=== PATIENT | male | born 1940 | race Caucasian/White ===

== ENCOUNTER → 2016-11-20 | Outpatient (REF) | payer MEDICARE, MEDICAID ==
[~2016-11-20] MED LIST: ALBUTERAL SULFATE INH; ASPI325T OR; ATEN25TA OR; CICL0.776 TOP; IBUP200C PO; LISI40TA OR; MAG400TA PO; MULTCAP PO; NICO21DI4 TD; OMEGA PO; OMEP40CA2 PO; OXAZ10CA PO; PRAV10TA2 OR; SPIRIVA INH; TYLE325T5 PO; VICO5TAB OR
[2016-11-20 17:34] LABS: ALBUMIN 3.8 GM/DL (3.2-5.2); ALBUMIN/GLOBULIN RATIO 1.27 (1.00-1.93); BILIRUBIN,DIRECT 0.4 MG/DL (0.0-0.2); BILIRUBIN,TOTAL 1.5 MG/DL (0.2-1.0); TOTAL PROTEIN 6.8 GM/DL (6.4-8.2)
== END ==
LOC: M LABDRWCV 16:15
PROVIDERS: ATTEND Internal Medicine Cardiovascular Disease
DX: E80.4 Gilbert syndrome (principal)

== ENCOUNTER → 2017-02-04 | Outpatient (CLI) | payer MEDICARE, MEDICAID ==
--- NOTE | 2017-02-04 12:46 | REP ---
LOW DOSE SCREENING CT LUNGS: Low dose screening CT of the lungs is performed in the axial plane. Comparison is made with prior CT of the thorax 07/20/2014. There is focal pleural and parenchymal opacity in the right apex, ill-defined and unchanged since the prior study most consistent with focal fibrotic scarring. Here is diffuse bilateral interstitial fibrosis. No suspicious nodular opacities are seen bilaterally. Calcified granulomata is seen along the inferior left major fissure. No pleural effusions are seen. The heart is not enlarged. There are degenerative changes of the spine. IMPRESSION: Stable fibrotic changes without suspicious nodular opacity in either lung. Category I negative screening CT of the lungs. Recommend continued annual screening yearly. Signed by Joselito Currie MD 02/04/2017 05:38 P
== END ==
LOC: M RAD 11:28
PROVIDERS: ATTEND Internal Medicine
DX: F17.210 Nicotine dependence, cigarettes, uncomplicated (principal)

== ENCOUNTER → 2017-02-10 | Outpatient (REF) | payer MEDICARE, MEDICAID ==
[2017-02-10 17:47] LABS: ALBUMIN 3.7 GM/DL (3.2-5.2); ALBUMIN/GLOBULIN RATIO 1.32 (1.00-1.93); ALKALINE PHOSPHATASE 96 U/L (45-117); ALT/SGPT 28 U/L (12-78); ANION GAP 7 MEQ/L (8-16); AST/SGOT 34 U/L (15-37); BILIRUBIN,TOTAL 1.5 MG/DL (0.2-1.0); BLOOD UREA NITROGEN 12 MG/DL (7-18); CALCIUM LEVEL 8.6 MG/DL (8.8-10.2); CARBON DIOXIDE LEVEL 29 MEQ/L (21-32); CHLORIDE LEVEL 102 MEQ/L (98-107); CHOLESTEROL LEVEL 116 MG/DL (<200); CREATININE FOR GFR 1.03 MG/DL (0.70-1.30); GLOMERULAR FILTRATION RATE > 60.0 (>42); GLUCOSE, FASTING 82 MG/DL (83-110); POTASSIUM SERUM 4.1 MEQ/L (3.5-5.1); SODIUM LEVEL 138 MEQ/L (136-145); TOTAL PROTEIN 6.5 GM/DL (6.4-8.2); TRIGLYCERIDES LEVEL 94 MG/DL (<150)
== END ==
LOC: M SFHCCAPE 10:30
PROVIDERS: ATTEND Family Medicine
DX: E78.2 Mixed hyperlipidemia (principal); I10 Essential (primary) hypertension; Z12.5 Encounter for screening for malignant neoplasm of prostate
CPT/HCPCS: 36415; 80053; 80061; 84443; G0103

== ENCOUNTER → 2017-03-12 | Outpatient (REF) | payer MEDICARE, MEDICAID ==
[2017-03-12 19:13] LABS: ALBUMIN 3.8 GM/DL (3.2-5.2); ANION GAP 7 MEQ/L (8-16); BLOOD UREA NITROGEN 11 MG/DL (7-18); CALCIUM LEVEL 8.7 MG/DL (8.8-10.2); CARBON DIOXIDE LEVEL 28 MEQ/L (21-32); CHLORIDE LEVEL 102 MEQ/L (98-107); GLOMERULAR FILTRATION RATE > 60.0 (>42); GLUCOSE, FASTING 99 MG/DL (83-110); PHOSPHORUS LEVEL 3.5 MG/DL (2.5-4.9); POTASSIUM SERUM 4.1 MEQ/L (3.5-5.1); SODIUM LEVEL 137 MEQ/L (136-145)
== END ==
LOC: M LABDRWCV 16:18
PROVIDERS: ATTEND Internal Medicine Cardiovascular Disease
DX: I11.9 Hypertensive heart disease without heart failure (principal); Z79.899 Other long term (current) drug therapy

== ENCOUNTER → 2018-05-26 | Outpatient (REF) | payer MEDICARE, MEDICAID ==
[2018-05-26 19:40] LABS: BASO # 0.1 10^3/uL (0.0-0.2); BASO % 1.3 % (0.0-1.0); EOS # 0.4 10^3/uL (0.0-0.50); EOS % 5.2 % (0.0-3.0); HEMATOCRIT 35.3 % (42.0-52.0); HEMOGLOBIN 11.7 g/dl (13.5-17.5); IMMATURE GRANULOCYTE % 0.4 % (0-3.0); LYMPH # 2.1 10^3/uL (1.5-4.5); LYMPH % 25.8 % (24.0-44.0); MEAN CORPUSCULAR HEMOGLOBIN 32.2 pg (27.0-33.0); MEAN CORPUSCULAR HGB CONC 33.1 g/dl (32.0-36.5); MEAN CORPUSCULAR VOLUME 97.2 fl (80.0-96.0); MONO # 0.8 10^3/uL (0.0-0.8); MONO % 10.6 % (0.0-5.0); NEUTROPHILS # 4.5 10^3/uL (1.8-7.7); NEUTROPHILS % 56.7 % (36.0-66.0); PLATELET COUNT, AUTOMATED 276 10^3/uL (150-450); RED BLOOD COUNT 3.63 10^6/uL (4.30-6.10); RED CELL DISTRIBUTION WIDTH 12.7 % (11.5-14.5)
[2018-05-26 19:48] LABS: ALBUMIN 3.6 GM/DL (3.2-5.2); ANION GAP 10 MEQ/L (8-16); BLOOD UREA NITROGEN 30 MG/DL (7-18); CALCIUM LEVEL 9.1 MG/DL (8.8-10.2); CARBON DIOXIDE LEVEL 23 MEQ/L (21-32); CHLORIDE LEVEL 107 MEQ/L (98-107); CHOLESTEROL LEVEL 122 MG/DL (<200); CHOLESTEROL RISK RATIO 1.694 (<5); CREATININE FOR GFR 1.42 MG/DL (0.70-1.30); GLOMERULAR FILTRATION RATE 51.6 (>42); GLUCOSE, FASTING 90 MG/DL (70-100); HDL CHOLESTEROL 72 MG/DL (>40); LDL CHOLESTEROL 27.2 MG/DL (<100); NON-HDL-C 50 MG/DL; PHOSPHORUS LEVEL 3.7 MG/DL (2.5-4.9); POTASSIUM SERUM 4.3 MEQ/L (3.5-5.1); SODIUM LEVEL 140 MEQ/L (136-145); TRIGLYCERIDES LEVEL 114 MG/DL (<150)
== END ==
LOC: M LAB REF 18:30
DX: R07.2 Precordial pain (principal)
CPT/HCPCS: 80069

== ENCOUNTER → 2018-06-14 | Outpatient (REF) | payer MEDICARE, MEDICAID ==
[2018-06-14 19:10] LABS: ALBUMIN 3.4 GM/DL (3.2-5.2); ANION GAP 10 MEQ/L (8-16); BLOOD UREA NITROGEN 20 MG/DL (7-18); CALCIUM LEVEL 8.6 MG/DL (8.8-10.2); CARBON DIOXIDE LEVEL 23 MEQ/L (21-32); CHLORIDE LEVEL 109 MEQ/L (98-107); CREATININE FOR GFR 1.75 MG/DL (0.70-1.30); GLOMERULAR FILTRATION RATE 40.5 (>42); GLUCOSE, FASTING 90 MG/DL (70-100); PHOSPHORUS LEVEL 3.8 MG/DL (2.5-4.9); POTASSIUM SERUM 4.3 MEQ/L (3.5-5.1); SODIUM LEVEL 142 MEQ/L (136-145)
[2018-06-14 19:14] LABS: ALBUMIN 3.4 GM/DL (3.2-5.2); ALBUMIN/GLOBULIN RATIO 1.17 (1.00-1.93); ALKALINE PHOSPHATASE 85 U/L (45-117); ALT/SGPT 37 U/L (12-78); ANION GAP 10 MEQ/L (8-16); AST/SGOT 59 U/L (7-37); BILIRUBIN,TOTAL 2.8 MG/DL (0.2-1.0); BLOOD UREA NITROGEN 20 MG/DL (7-18); CALCIUM LEVEL 8.5 MG/DL (8.8-10.2); CARBON DIOXIDE LEVEL 24 MEQ/L (21-32); CHLORIDE LEVEL 109 MEQ/L (98-107); CHOLESTEROL LEVEL 95 MG/DL (<200); CHOLESTEROL RISK RATIO 1.439 (<5); CREATININE FOR GFR 1.74 MG/DL (0.70-1.30); GLOMERULAR FILTRATION RATE 40.8 (>42); GLUCOSE, FASTING 87 MG/DL (70-100); HDL CHOLESTEROL 66 MG/DL (>40); LDL CHOLESTEROL 16.4 MG/DL (<100); NON-HDL-C 29 MG/DL; POTASSIUM SERUM 4.3 MEQ/L (3.5-5.1); SODIUM LEVEL 143 MEQ/L (136-145); TOTAL PROTEIN 6.3 GM/DL (6.4-8.2); TRIGLYCERIDES LEVEL 63 MG/DL (<150)
== END ==
LOC: M SFHCCAPE 09:42
DX: I11.9 Hypertensive heart disease without heart failure (principal); E78.2 Mixed hyperlipidemia; J44.9 Chronic obstructive pulmonary disease, unspecified; K21.9 Gastro-esophageal reflux disease without esophagitis
CPT/HCPCS: 84443

== ENCOUNTER → 2018-06-28 | Outpatient (REF) | payer MEDICARE, MEDICAID ==
[2018-06-28 17:35] LABS: ALBUMIN 3.4 GM/DL (3.2-5.2); ANION GAP 8 MEQ/L (8-16); BLOOD UREA NITROGEN 16 MG/DL (7-18); CARBON DIOXIDE LEVEL 29 MEQ/L (21-32); CHLORIDE LEVEL 106 MEQ/L (98-107); CREATININE FOR GFR 1.34 MG/DL (0.70-1.30); GLOMERULAR FILTRATION RATE 55.2 (>42); GLUCOSE, FASTING 93 MG/DL (70-100); POTASSIUM SERUM 4.1 MEQ/L (3.5-5.1); SODIUM LEVEL 143 MEQ/L (136-145)
== END ==
LOC: M LABDRWCV 16:39
DX: I25.10 Atherosclerotic heart disease of native coronary artery without angina pectoris (principal)
CPT/HCPCS: 80069

== ENCOUNTER → 2018-07-12 | Outpatient (REF) | payer MEDICARE, MEDICAID ==
[2018-07-12 22:47] LABS: ALBUMIN 3.6 GM/DL (3.2-5.2); ANION GAP 10 MEQ/L (8-16); BLOOD UREA NITROGEN 19 MG/DL (7-18); CALCIUM LEVEL 9.1 MG/DL (8.8-10.2); CARBON DIOXIDE LEVEL 25 MEQ/L (21-32); CHLORIDE LEVEL 107 MEQ/L (98-107); CREATININE FOR GFR 1.31 MG/DL (0.70-1.30); GLOMERULAR FILTRATION RATE 56.6 (>42); GLUCOSE, FASTING 98 MG/DL (70-100); PHOSPHORUS LEVEL 3.4 MG/DL (2.5-4.9); SODIUM LEVEL 142 MEQ/L (136-145)
== END ==
LOC: M LABDRWCV 17:54
DX: R60.0 Localized edema (principal)
CPT/HCPCS: 80069

== ENCOUNTER 2018-07-22 12:26 | Outpatient (RCR) | payer MEDICARE, MEDICAID | END 2018-08-01 | LOC: M CR 12:26 | DX: Z98.61 Coronary angioplasty status (principal) | CPT/HCPCS: 93798 ==

== ENCOUNTER → 2018-07-28 | Outpatient (REF) | payer MEDICARE, MEDICAID ==
[2018-07-28 14:36] LABS: FOLATE > 24.0 NG/ML; IRON (FE) 31 UG/DL (65-175); PERCENT SATURATION 10.1 % (19.7-50.0); TOTAL IRON BINDING CAPACITY 307 UG/DL (250-450)
[2018-07-29 08:35] LABS: TOTAL PROTEIN 6.8 GM/DL (6.4-8.2)
[2018-07-29 11:32] LABS: ALBUMIN 3.82 GM/DL (3.29-5.55); ALBUMIN % 56.2 % (55.8-66.1); ALPHA-1-GLOBULIN % 5.5 % (2.9-4.9); ALPHA-1-GLOBULINS 0.37 GM/DL (0.17-0.41); ALPHA-2-GLOBULINS 0.88 GM/DL (0.42-0.99); BETA-1-GLOBULINS 0.42 GM/DL (0.28-0.60); BETA-1-GLOBULINS % 6.2 % (4.7-7.2); BETA-2-GLOBULINS 0.32 GM/DL (0.19-0.55); BETA-2-GLOBULINS % 4.7 % (3.2-6.5); GAMMA GLOBULIN % 14.4 % (11.1-18.8); GAMMA GLOBULINS 0.98 GM/DL (0.65-1.58)
== END ==
LOC: M LAB REF 13:51
DX: D64.9 Anemia, unspecified (principal)
CPT/HCPCS: 82746

== ENCOUNTER 2018-08-06 10:53 | Outpatient (RCR) | payer MEDICARE, MEDICAID | END 2018-09-01 | LOC: M CR 10:53 | DX: Z98.61 Coronary angioplasty status (principal) | CPT/HCPCS: 93798 ==

== ENCOUNTER → 2018-08-11 | Outpatient (REF) | payer MEDICARE, MEDICAID ==
[2018-08-11 17:27] LABS: ALBUMIN 3.6 GM/DL (3.2-5.2); ALBUMIN/GLOBULIN RATIO 1.24 (1.00-1.93); ALKALINE PHOSPHATASE 90 U/L (45-117); ALT/SGPT 47 U/L (12-78); ANION GAP 10 MEQ/L (8-16); AST/SGOT 50 U/L (7-37); BILIRUBIN,TOTAL 1.3 MG/DL (0.2-1.0); BLOOD UREA NITROGEN 18 MG/DL (7-18); CALCIUM LEVEL 9.4 MG/DL (8.8-10.2); CARBON DIOXIDE LEVEL 26 MEQ/L (21-32); CHLORIDE LEVEL 107 MEQ/L (98-107); CREATININE FOR GFR 1.45 MG/DL (0.70-1.30); GLOMERULAR FILTRATION RATE 50.4 (>42); GLUCOSE, FASTING 86 MG/DL (70-100); POTASSIUM SERUM 4.4 MEQ/L (3.5-5.1); SODIUM LEVEL 143 MEQ/L (136-145); TOTAL PROTEIN 6.5 GM/DL (6.4-8.2)
== END ==
LOC: M SFHCCLAY 10:03
DX: N28.9 Disorder of kidney and ureter, unspecified (principal)
CPT/HCPCS: 80053

== ENCOUNTER → 2018-08-11 | Outpatient (REF) | payer MEDICARE, MEDICAID ==
[2018-08-11 17:26] LABS: BASO # 0.1 10^3/uL (0.0-0.2); EOS # 0.3 10^3/uL (0.0-0.50); EOS % 4.4 % (0.0-3.0); HEMATOCRIT 29.9 % (42.0-52.0); HEMOGLOBIN 9.6 g/dl (13.5-17.5); IMMATURE GRANULOCYTE % 0.2 % (0-3.0); LYMPH # 1.1 10^3/uL (1.5-4.5); LYMPH % 17.6 % (24.0-44.0); MEAN CORPUSCULAR HEMOGLOBIN 29.7 pg (27.0-33.0); MEAN CORPUSCULAR HGB CONC 32.1 g/dl (32.0-36.5); MEAN CORPUSCULAR VOLUME 92.6 fl (80.0-96.0); MONO # 0.7 10^3/uL (0.0-0.8); MONO % 10.5 % (0.0-5.0); NEUTROPHILS # 4.2 10^3/uL (1.8-7.7); NEUTROPHILS % 66.3 % (36.0-66.0); PLATELET COUNT, AUTOMATED 291 10^3/uL (150-450); RED BLOOD COUNT 3.23 10^6/uL (4.30-6.10); RED CELL DISTRIBUTION WIDTH 13.2 % (11.5-14.5); WHITE BLOOD COUNT 6.3 10^3/uL (4.0-10.0)
[2018-08-11 17:28] LABS: ANION GAP 9 MEQ/L (8-16); BLOOD UREA NITROGEN 16 MG/DL (7-18); CALCIUM LEVEL 8.7 MG/DL (8.8-10.2); CARBON DIOXIDE LEVEL 26 MEQ/L (21-32); CHLORIDE LEVEL 107 MEQ/L (98-107); CREATININE FOR GFR 1.43 MG/DL (0.70-1.30); GLOMERULAR FILTRATION RATE 51.2 (>42); GLUCOSE, FASTING 81 MG/DL (70-100); POTASSIUM SERUM 4.4 MEQ/L (3.5-5.1); SODIUM LEVEL 142 MEQ/L (136-145)
== END ==
LOC: M LABDRWCV 16:25
DX: D64.9 Anemia, unspecified (principal); I10 Essential (primary) hypertension
CPT/HCPCS: 80053; 85027

== ENCOUNTER 2018-09-03 13:13 | Outpatient (RCR) | payer MEDICARE, MEDICAID | END 2018-10-01 | LOC: M CR 13:13 | DX: Z51.89 Encounter for other specified aftercare (principal); Z98.61 Coronary angioplasty status | CPT/HCPCS: 93798 ==

== ENCOUNTER → 2018-09-09 | Outpatient (REF) | payer MEDICARE, MEDICAID ==
[2018-09-09 17:21] LABS: BASO # 0.1 10^3/uL (0.0-0.2); BASO % 0.5 % (0.0-1.0); EOS # 0.3 10^3/uL (0.0-0.50); EOS % 2.4 % (0.0-3.0); HEMATOCRIT 31.2 % (42.0-52.0); IMMATURE GRANULOCYTE # 0.1 10^3/uL (0-0); IMMATURE GRANULOCYTE % 0.4 % (0-3.0); LYMPH # 1.2 10^3/uL (1.5-4.5); LYMPH % 9.5 % (24.0-44.0); MEAN CORPUSCULAR HEMOGLOBIN 29.6 pg (27.0-33.0); MEAN CORPUSCULAR HGB CONC 32.1 g/dl (32.0-36.5); MEAN CORPUSCULAR VOLUME 92.3 fl (80.0-96.0); MONO % 8.4 % (0.0-5.0); NEUTROPHILS # 9.7 10^3/uL (1.8-7.7); NEUTROPHILS % 78.8 % (36.0-66.0); PLATELET COUNT, AUTOMATED 257 10^3/uL (150-450); RED BLOOD COUNT 3.38 10^6/uL (4.30-6.10); RED CELL DISTRIBUTION WIDTH 14.6 % (11.5-14.5); WHITE BLOOD COUNT 12.3 10^3/uL (4.0-10.0)
[2018-09-09 17:35] LABS: IRON (FE) 46 UG/DL (65-175); PERCENT SATURATION 15.2 % (19.7-50.0); TOTAL IRON BINDING CAPACITY 302 UG/DL (250-450)
== END ==
LOC: M LABDRWCV 17:00
DX: D50.0 Iron deficiency anemia secondary to blood loss (chronic) (principal)
CPT/HCPCS: 83550

== ENCOUNTER 2018-09-16 12:30 | Day surgery (SDC) | payer MEDICARE, MEDICAID ==
[~2018-09-16 12:30] MED LIST changes: -ALBUTERAL SULFATE INH; -ASPI325T OR; -ATEN25TA OR; -CICL0.776 TOP; -IBUP200C PO; +LIDOCAINE 2% INJ 100 MG/5 ML SDV (FOR ANES.) As Ordered; -LISI40TA OR; -MAG400TA PO; -MULTCAP PO; -NICO21DI4 TD; -OMEGA PO; -OMEP40CA2 PO; -OXAZ10CA PO; -PRAV10TA2 OR; +PROPOFOL 200 MG/20 ML VIAL As Ordered; -SPIRIVA INH; -TYLE325T5 PO; -VICO5TAB OR
[2018-09-16] MEDS: NS 1,000 ML IV (12:45)
[2018-09-16] MEDS ORDERED: ePHEDrine SULFATE 25 MG/5 ML(5MG/ML) SYRINGE As Ordered (13:37)
== END 2018-09-16 14:29 | disposition home or self-care (01) ==
LOC: M OPP 12:30
DX: K57.30 Diverticulosis of large intestine without perforation or abscess without bleeding (principal); K52.9 Noninfective gastroenteritis and colitis, unspecified; D50.9 Iron deficiency anemia, unspecified
CPT/HCPCS: 45378

== ENCOUNTER → 2018-09-27 | Outpatient (REF) | payer MEDICARE, MEDICAID ==
[2018-09-27 17:48] LABS: BASO # 0.1 10^3/uL (0.0-0.2); BASO % 1.2 % (0.0-1.0); EOS # 0.4 10^3/uL (0.0-0.50); EOS % 5.8 % (0.0-3.0); HEMATOCRIT 32.6 % (42.0-52.0); HEMOGLOBIN 10.2 g/dl (13.5-17.5); IMMATURE GRANULOCYTE % 0.2 % (0-3.0); LYMPH # 1.9 10^3/uL (1.5-4.5); LYMPH % 29.1 % (24.0-44.0); MEAN CORPUSCULAR HGB CONC 31.3 g/dl (32.0-36.5); MEAN CORPUSCULAR VOLUME 92.6 fl (80.0-96.0); MONO # 0.8 10^3/uL (0.0-0.8); MONO % 11.5 % (0.0-5.0); NEUTROPHILS # 3.4 10^3/uL (1.8-7.7); NEUTROPHILS % 52.2 % (36.0-66.0); PLATELET COUNT, AUTOMATED 272 10^3/uL (150-450); RED BLOOD COUNT 3.52 10^6/uL (4.30-6.10); RED CELL DISTRIBUTION WIDTH 14.6 % (11.5-14.5); WHITE BLOOD COUNT 6.5 10^3/uL (4.0-10.0)
== END ==
LOC: M LABDRWCV 17:03
DX: D50.0 Iron deficiency anemia secondary to blood loss (chronic) (principal)
CPT/HCPCS: 85027

== ENCOUNTER 2018-10-14 15:05 | Outpatient (RCR) | payer MEDICARE, MEDICAID ==
[~2018-10-14 15:05] MED LIST changes: +ALBUTERAL SULFATE INH; +ASPI1TAB PO; +ASPI325T OR; +ATEN25TA OR; +ATOR80TA59 PO; +BISO5TAB5 PO; +BRIL90TA PO; +CICL0.776 TOP; +FERR1TAB8 PO; +IBUP200C PO; +INCR1INH INH; -LIDOCAINE 2% INJ 100 MG/5 ML SDV (FOR ANES.) As Ordered; +LISI40TA OR; +LOSA-4 PO; +MAG400TA PO; +MAGN64TASA PO; +MULT1TAB10 PO; +MULTCAP PO; +NICO21DI4 TD; +OMEGA PO; +OMEP20CA3 PO; +OMEP40CA2 PO; +OSTETAB7 PO; +OXAZ10CA PO; +POTA1TAB14 PO; +PRAV10TA2 OR; -PROPOFOL 200 MG/20 ML VIAL As Ordered; +SPIRIVA INH; +TORS5TAB2 PO; +TYLE325T5 PO; +VICO5TAB OR; +[UNRECOGNIZED DRUG - REMARK]
--- NOTE | 2018-10-14 15:26 | CARECAPL ---
General Diagnoses: PTCA Date of event: Jun 10, 2018 Physician: Mika Alvarenga Allergies: Coded Allergies: No Known Drug Allergy (Verified Allergy, Unknown, NONE, 09/08/18) Date Entered Program: Jul 22, 2018 Risk strat for cardiac event: Low Exercise Date: Oct 14, 2018 Assessment: Followup/Discharge Exercise Prescription Modalities initiated: Nustep (mets 4.3 RPE 2), Arm Aerometer (mets 4.3 RPE 2), Dumbells (4lbs RPE 2), Recumbent Bike (mets 5.4 RPE 3) Duration (Minutes) minutes total exercise a day. work intervals in minutes. rest intervals in minutes. Functional Capacity Goal Sustained Metabolic Equivalent of a task (MET) goal of for minutes. Intensity: 3-Moderate Progression (METS) Increase by: METS every: sessions Angina with ex: No Target Heart Rate rest + 35-40 Resistance Training: Yes Weight (pounds): 4 Reps: 8-12 Hypertension: Yes Hypertension controlled with: Medication Resting 110/80 Peak Exercise BP 140/80 Meds bisoprolol Medications Scheduled (Incruse Ellipta), 1 PUFF INH DAILY, (Reported) (Osteo Bi-Flex Joint Shiel), 2 TAB PO DAILY, (Reported) Aspirin (Aspirin 81), 81 MG PO DAILY, (Reported) Atorvastatin Calcium (Atorvastatin Calcium), 80 MG PO DAILY, (Reported) Bisoprolol Fumarate (Bisoprolol Fumarate), 5 MG PO DAILY, (Reported) Ferrous Sulfate (Ferrous Sulfate), 325 MG PO BID, (Reported) Losartan Potassium (Losartan Potassium), 1 TAB PO DAILY, (Reported) Magnesium Chloride (Mag64), 2 TAB PO DAILY, (Reported) Multivitamins (Multivitamin Adults), 1 TAB PO DAILY, (Reported) Potassium Chloride (Potassium Chloride ER), 20 MEQ PO BID, (Reported) Ticagrelor Base (Brilinta), 90 MG PO BID, (Reported) Torsemide (Torsemide), 5 MG PO DAILY, (Reported) Scheduled PRN Omeprazole (Omeprazole), 20 MG PO BIDP PRN for HEARTBURN, (Reported) Miscellaneous Medications [healing ointment], (Reported) Education Goals Met: Yes Target Goals Individual exercise Rx (1) BP 140/90 or 130/80 if DM or CKD (1) Aerobic active 30+min 5 days per week (1) Nutrition Date: Oct 14, 2018 Assessment: Followup/Discharge Med Change: No Diabetes Diabetes: No Medication Change: No Diet Access Tool: Rate your plate Score: 46 Education Goals Met: Yes Target goal LDL-C<100 if triglycerides are >200 Non-HDL-C should be <130 (1) LDL-C<70 for high risk patients (4) HbA1c<7% (1) BMI<25 Waist cir<40in M/<35in F (1) Education Date: Oct 14, 2018 Assessment: Followup/Discharge Knowledge Test Score: 7 Education Goals Met: Yes Target Goals Complete cessation of tobacco use (1). Psychosocial Date: Oct 14, 2018 Assessment: Followup/Discharge Psych Test (Initial/Discharge) Tool Used: CESD Score: 8 Intervention Physician Consult: No Physician Referral: No Med Change: No Stress Management Class: Yes Uses Stress Management Skills: Yes Education Education: Coping Techniques, S/S depression, Relaxation Techniques Education Goals Met: Yes Target Goal Assess presence or absence of depression using a valid screening tool (1). Maximize coping skills (2). Positive support system (2). Patient/Program Goal Preventative Medication: Yes Aspirin, Yes Beta blockade, Yes Statin/OTR lipid Lowering, Yes Other (Brillinta) Fall Risk Assess: Yes Assisstive Device: cane Provider Assessment Session Number: 16 Provider Assessment: Proceed with rehab (patient discharged from cardiac rehab) Viola Olvera RN Oct 14, 2018 15:26
== END 2018-11-01 ==
LOC: M CR 15:05
PROVIDERS: ATTEND Internal Medicine Cardiovascular Disease
DX: Z98.61 Coronary angioplasty status (principal)

== ENCOUNTER → 2018-10-21 | Outpatient (REF) | payer MEDICARE, MEDICAID ==
[2018-10-21 16:45] LABS: BASO # 0.1 10^3/uL (0.0-0.2); BASO % 1.2 % (0.0-1.0); EOS # 0.3 10^3/uL (0.0-0.50); EOS % 4.2 % (0.0-3.0); HEMATOCRIT 32.8 % (42.0-52.0); HEMOGLOBIN 10.6 g/dl (13.5-17.5); IMMATURE GRANULOCYTE % 0.1 % (0-3.0); LYMPH # 1.6 10^3/uL (1.5-4.5); LYMPH % 21.3 % (24.0-44.0); MEAN CORPUSCULAR HEMOGLOBIN 29.3 pg (27.0-33.0); MEAN CORPUSCULAR HGB CONC 32.3 g/dl (32.0-36.5); MEAN CORPUSCULAR VOLUME 90.6 fl (80.0-96.0); MONO # 0.7 10^3/uL (0.0-0.8); NEUTROPHILS # 4.6 10^3/uL (1.8-7.7); NEUTROPHILS % 63.2 % (36.0-66.0); PLATELET COUNT, AUTOMATED 255 10^3/uL (150-450); RED BLOOD COUNT 3.62 10^6/uL (4.30-6.10); RED CELL DISTRIBUTION WIDTH 14.9 % (11.5-14.5); WHITE BLOOD COUNT 7.3 10^3/uL (4.0-10.0)
== END ==
LOC: M LABDRWCV 16:09
DX: D50.0 Iron deficiency anemia secondary to blood loss (chronic) (principal)
CPT/HCPCS: 85027

== ENCOUNTER → 2018-11-05 | Outpatient (REF) | payer MEDICARE, MEDICAID ==
[~2018-11-05] MED LIST changes: -LOSA-4 PO; +LOSA100T50 PO
[2018-11-05 18:13] LABS: PERCENT SATURATION 18.5 % (19.7-50.0)
== END ==
LOC: M LAB REF 16:25
PROVIDERS: ATTEND Internal Medicine
DX: D50.0 Iron deficiency anemia secondary to blood loss (chronic) (principal)

== ENCOUNTER → 2018-11-25 | Outpatient (REF) | payer MEDICARE, MEDICAID ==
[2018-11-25 17:04] LABS: ALBUMIN 3.7 GM/DL (3.2-5.2); BLOOD UREA NITROGEN 14 MG/DL (7-18); CALCIUM LEVEL 8.6 MG/DL (8.8-10.2); CARBON DIOXIDE LEVEL 27 MEQ/L (21-32); CHLORIDE LEVEL 106 MEQ/L (98-107); CREATININE FOR GFR 1.08 MG/DL (0.70-1.30); GLOMERULAR FILTRATION RATE > 60.0 (>42); GLUCOSE, FASTING 90 MG/DL (70-100); PHOSPHORUS LEVEL 3.2 MG/DL (2.5-4.9); POTASSIUM SERUM 4.4 MEQ/L (3.5-5.1); SODIUM LEVEL 140 MEQ/L (136-145)
== END ==
LOC: M LABDRWCV 16:07
PROVIDERS: ATTEND Physician Assistant
DX: I11.9 Hypertensive heart disease without heart failure (principal)

== ENCOUNTER → 2018-11-25 | Outpatient (REF) | payer MEDICARE, MEDICAID ==
[2018-11-25 17:24] LABS: BASO # 0.1 10^3/uL (0.0-0.2); BASO % 1.3 % (0.0-1.0); EOS # 0.4 10^3/uL (0.0-0.50); EOS % 6.5 % (0.0-3.0); HEMATOCRIT 33.9 % (42.0-52.0); HEMOGLOBIN 10.7 g/dl (13.5-17.5); LYMPH # 1.7 10^3/uL (1.5-4.5); LYMPH % 26.4 % (24.0-44.0); MEAN CORPUSCULAR HEMOGLOBIN 28.9 pg (27.0-33.0); MEAN CORPUSCULAR HGB CONC 31.6 g/dl (32.0-36.5); MEAN CORPUSCULAR VOLUME 91.6 fl (80.0-96.0); MONO # 0.7 10^3/uL (0.0-0.8); MONO % 11.3 % (0.0-5.0); NEUTROPHILS # 3.4 10^3/uL (1.8-7.7); NEUTROPHILS % 54.3 % (36.0-66.0); PLATELET COUNT, AUTOMATED 249 10^3/uL (150-450); WHITE BLOOD COUNT 6.3 10^3/uL (4.0-10.0)
== END ==
LOC: M LABDRWCV 16:08
PROVIDERS: ATTEND Internal Medicine
DX: D50.0 Iron deficiency anemia secondary to blood loss (chronic) (principal)

== ENCOUNTER → 2019-01-04 | Outpatient (REF) | payer MEDICARE, MEDICAID ==
[2019-01-04 18:25] LABS: BASO # 0.1 10^3/uL (0.0-0.2); BASO % 0.9 % (0.0-1.0); EOS # 0.3 10^3/uL (0.0-0.50); EOS % 4.9 % (0.0-3.0); HEMATOCRIT 32.9 % (42.0-52.0); HEMOGLOBIN 10.7 g/dl (13.5-17.5); LYMPH # 1.3 10^3/uL (1.5-4.5); LYMPH % 20.8 % (24.0-44.0); MEAN CORPUSCULAR HEMOGLOBIN 29.6 pg (27.0-33.0); MEAN CORPUSCULAR HGB CONC 32.5 g/dl (32.0-36.5); MEAN CORPUSCULAR VOLUME 91.1 fl (80.0-96.0); MONO # 0.7 10^3/uL (0.0-0.8); MONO % 10.2 % (0.0-5.0); NEUTROPHILS % 62.9 % (36.0-66.0); PLATELET COUNT, AUTOMATED 261 10^3/uL (150-450); RED BLOOD COUNT 3.61 10^6/uL (4.30-6.10); WHITE BLOOD COUNT 6.4 10^3/uL (4.0-10.0)
== END ==
LOC: M LABDRWCV 17:00
PROVIDERS: ATTEND Internal Medicine
DX: D50.0 Iron deficiency anemia secondary to blood loss (chronic) (principal)

== ENCOUNTER → 2019-02-01 | Outpatient (REF) | payer MEDICARE, MEDICAID ==
[~2019-02-01] MED LIST changes: -ASPI1TAB PO; +ASPI81TA26 PO
[2019-02-01 16:31] LABS: BASO # 0.1 10^3/uL (0.0-0.2); BASO % 0.3 % (0.0-1.0); EOS # 0.2 10^3/uL (0.0-0.50); EOS % 1.2 % (0.0-3.0); HEMATOCRIT 33.5 % (42.0-52.0); HEMOGLOBIN 10.6 g/dl (13.5-17.5); LYMPH # 1.3 10^3/uL (1.5-4.5); LYMPH % 8.7 % (24.0-44.0); MEAN CORPUSCULAR HEMOGLOBIN 29.8 pg (27.0-33.0); MEAN CORPUSCULAR HGB CONC 31.6 g/dl (32.0-36.5); MEAN CORPUSCULAR VOLUME 94.1 fl (80.0-96.0); MONO # 1.6 10^3/uL (0.0-0.8); MONO % 10.5 % (0.0-5.0); NEUTROPHILS # 12.2 10^3/uL (1.8-7.7); NEUTROPHILS % 78.7 % (36.0-66.0); PLATELET COUNT, AUTOMATED 258 10^3/uL (150-450); RED BLOOD COUNT 3.56 10^6/uL (4.30-6.10); WHITE BLOOD COUNT 15.5 10^3/uL (4.0-10.0)
== END ==
LOC: M LABDRWCV 16:13
PROVIDERS: ATTEND Internal Medicine
DX: D50.0 Iron deficiency anemia secondary to blood loss (chronic) (principal); Z23 Encounter for immunization
CPT/HCPCS: 85027; 90471; 90714; G0463

== ENCOUNTER → 2019-03-07 | Outpatient (REF) | payer MEDICARE, MEDICAID ==
[2019-03-07 19:20] LABS: PERCENT SATURATION 23.5 % (19.7-50.0)
== END ==
LOC: M LAB REF 16:58
PROVIDERS: ATTEND Internal Medicine
DX: D50.0 Iron deficiency anemia secondary to blood loss (chronic) (principal)

== ENCOUNTER → 2019-09-07 | Outpatient (REF) | payer MEDICARE, MEDICAID ==
[~2019-09-07] MED LIST changes: -BISO5TAB5 PO; +BISO5TAB9 PO; -OMEP20CA3 PO; +OMEP20CA4 PO; +OMEP40CA97 PO
[2019-09-07 18:44] LABS: PERCENT SATURATION 28.3 % (19.7-50.0)
== END ==
LOC: M LAB REF 16:59
PROVIDERS: ATTEND Internal Medicine
DX: D50.0 Iron deficiency anemia secondary to blood loss (chronic) (principal)

== ENCOUNTER → 2019-09-21 | Outpatient (REF) | payer MEDICARE, MEDICAID ==
[~2019-09-21] MED LIST changes: +OMEP-172 PO; -OMEP20CA4 PO
[2019-09-21 16:47] LABS: BLOOD UREA NITROGEN 14 MG/DL (7-18); CALCIUM LEVEL 8.5 MG/DL (8.8-10.2); CARBON DIOXIDE LEVEL 29 MEQ/L (21-32); CHLORIDE LEVEL 105 MEQ/L (98-107); CREATININE FOR GFR 0.96 MG/DL (0.70-1.30); GLOMERULAR FILTRATION RATE > 60.0 (>42); GLUCOSE, FASTING 102 MG/DL (70-100); POTASSIUM SERUM 4.3 MEQ/L (3.5-5.1); SODIUM LEVEL 139 MEQ/L (136-145)
== END ==
LOC: M LABDRWCV 15:59
PROVIDERS: ATTEND Internal Medicine
DX: I10 Essential (primary) hypertension (principal)

== ENCOUNTER → 2020-04-11 | Outpatient (REF) | payer MEDICARE, MEDICAID ==
[~2020-04-11] MED LIST changes: +BISO5TAB14 PO; -BISO5TAB9 PO; -OMEP-172 PO; +OMEP1CAP73 PO
[2020-04-11 16:18] LABS: BASO # 0.1 10^3/uL (0.0-0.2); BASO % 0.6 % (0.0-1.0); EOS # 0.1 10^3/uL (0.0-0.5); EOS % 1.4 % (0.0-3.0); HEMATOCRIT 35.3 % (42.0-52.0); HEMOGLOBIN 11.9 g/dl (13.5-17.5); LYMPH # 1.5 10^3/uL (1.5-5.0); LYMPH % 17.6 % (24.0-44.0); MEAN CORPUSCULAR HEMOGLOBIN 31.2 pg (27.0-33.0); MEAN CORPUSCULAR HGB CONC 33.7 g/dl (32.0-36.5); MEAN CORPUSCULAR VOLUME 92.7 fl (80.0-96.0); MONO # 0.8 10^3/uL (0.0-0.8); MONO % 9.6 % (0.0-5.0); NEUTROPHILS % 70.4 % (36.0-66.0); PLATELET COUNT, AUTOMATED 257 10^3/uL (150-450); RED BLOOD COUNT 3.81 10^6/uL (4.30-6.10); WHITE BLOOD COUNT 8.5 10^3/uL (4.0-10.0)
[2020-04-11 16:52] LABS: ALBUMIN 3.8 GM/DL (3.2-5.2); ALT/SGPT 36 U/L (12-78); BILIRUBIN,TOTAL 1.8 MG/DL (0.2-1.0); BLOOD UREA NITROGEN 14 MG/DL (7-18); CALCIUM LEVEL 9.4 MG/DL (8.8-10.2); CARBON DIOXIDE LEVEL 24 MEQ/L (21-32); CHLORIDE LEVEL 104 MEQ/L (98-107); CHOLESTEROL LEVEL 106 MG/DL (<200); CHOLESTEROL RISK RATIO 1.432 (<5); CREATININE FOR GFR 0.99 MG/DL (0.70-1.30); GLOMERULAR FILTRATION RATE > 60.0 (>42); GLUCOSE, FASTING 74 MG/DL (70-100); HDL CHOLESTEROL 74 MG/DL (>40); IRON (FE) 69 UG/DL (65-175); LDL CHOLESTEROL 22 MG/DL (<100); MAGNESIUM LEVEL 2.2 MG/DL (1.8-2.4); NON-HDL-C 32 MG/DL; PERCENT SATURATION 22.1 % (19.7-50.0); POTASSIUM SERUM 4.2 MEQ/L (3.5-5.1); SODIUM LEVEL 135 MEQ/L (136-145); TOTAL IRON BINDING CAPACITY 312 UG/DL (250-450); TOTAL PROTEIN 7.1 GM/DL (6.4-8.2); TRIGLYCERIDES LEVEL 51 MG/DL (<150)
== END ==
LOC: M SFHCCLAY 11:43
PROVIDERS: ATTEND Family Medicine
DX: D50.0 Iron deficiency anemia secondary to blood loss (chronic) (principal); I10 Essential (primary) hypertension; E78.2 Mixed hyperlipidemia; E83.42 Hypomagnesemia
CPT/HCPCS: 36415; 80053; 80061; 83550; 83735; 85025; G0463

== ENCOUNTER → 2020-07-31 | Outpatient (CLI) | payer MEDICARE, MEDICAID ==
--- NOTE | 2020-08-08 13:12 | REP ---
CAROTID ULTRASOUND CLINICAL HISTORY: Stenosis. TECHNIQUE: Real-time ultrasound evaluation and duplex Doppler interrogation of the extracranial carotid vasculature is performed. FINDINGS: There is mild scattered plaquing throughout the right extracranial carotid vasculature with a more moderate degree of plaquing throughout the left extracranial carotid vasculature. However, there is no evidence of hemodynamically significant stenosis. Normal flow velocities are seen bilaterally. There is normal direction of flow in both vertebral arteries. PEAK FLOW VELOCITY ANALYSIS RIGHT LEFT ICA PSV 78.5 cm/s 87.0 cm/s ICA EDV 22.8 cm/s 23.1 cm/s ECA PSV 50.9 cm/s 47.1 cm/s CCA PSV 85.3 cm/s 69.0 cm/s ICA/CCA RATIO 0.92 1.26 IMPRESSION: [id number] plaquing bilaterally without evidence of hemodynamically significant stenosis of either internal carotid artery. MTDD
== END ==
LOC: M RAD 09:34
PROVIDERS: ATTEND Internal Medicine Cardiovascular Disease
DX: I65.23 Occlusion and stenosis of bilateral carotid arteries (principal)

== ENCOUNTER → 2020-08-03 | Outpatient (REF) | payer MEDICARE, MEDICAID ==
[2020-08-03 17:12] LABS: ALBUMIN 3.2 GM/DL (3.2-5.2); ALT/SGPT 34 U/L (12-78); BILIRUBIN,TOTAL 1.5 MG/DL (0.2-1.0); BLOOD UREA NITROGEN 10 MG/DL (7-18); CARBON DIOXIDE LEVEL 28 MEQ/L (21-32); CHLORIDE LEVEL 94 MEQ/L (98-107); CREATININE FOR GFR 0.81 MG/DL (0.70-1.30); GLOMERULAR FILTRATION RATE > 60.0 (>42); GLUCOSE, FASTING 97 MG/DL (70-100); MAGNESIUM LEVEL 1.8 MG/DL (1.8-2.4); NT-PRO BNP 197 PG/ML (<450); POTASSIUM SERUM 4.1 MEQ/L (3.5-5.1); SODIUM LEVEL 129 MEQ/L (136-145); TOTAL PROTEIN 6.5 GM/DL (6.4-8.2)
== END ==
LOC: M LABDRAWC 16:03
PROVIDERS: ATTEND Internal Medicine Cardiovascular Disease
DX: I11.9 Hypertensive heart disease without heart failure (principal); H61.22 Impacted cerumen, left ear; Z23 Encounter for immunization
CPT/HCPCS: 36415; 69209; 80053; 83735; 83880; 90682; G0008; G0463

== ENCOUNTER → 2020-09-10 | Outpatient (REF) | payer MEDICARE, MEDICAID ==
[2020-09-10 13:06] LABS: ALBUMIN 3.4 GM/DL (3.2-5.2); ALT/SGPT 33 U/L (12-78); BILIRUBIN,TOTAL 1.8 MG/DL (0.2-1.0); BLOOD UREA NITROGEN 13 MG/DL (7-18); CARBON DIOXIDE LEVEL 28 MEQ/L (21-32); CHLORIDE LEVEL 99 MEQ/L (98-107); CREATININE FOR GFR 0.89 MG/DL (0.70-1.30); GLOMERULAR FILTRATION RATE > 60.0 (>42); GLUCOSE, FASTING 81 MG/DL (70-100); MAGNESIUM LEVEL 2.2 MG/DL (1.8-2.4); NT-PRO BNP 308 PG/ML (<450); POTASSIUM SERUM 4.6 MEQ/L (3.5-5.1); SODIUM LEVEL 133 MEQ/L (136-145); TOTAL PROTEIN 6.3 GM/DL (6.4-8.2)
== END ==
LOC: M LABDRAWC 11:17
PROVIDERS: ATTEND Internal Medicine Cardiovascular Disease
DX: I11.9 Hypertensive heart disease without heart failure (principal)

== ENCOUNTER → 2020-11-13 | Outpatient (REF) | payer MEDICARE, MEDICAID ==
[2020-11-13 16:50] LABS: ALBUMIN 3.4 GM/DL (3.2-5.2); ALT/SGPT 31 U/L (12-78); BILIRUBIN,TOTAL 1.3 MG/DL (0.2-1.0); BLOOD UREA NITROGEN 16 MG/DL (7-18); CALCIUM LEVEL 9.1 MG/DL (8.8-10.2); CARBON DIOXIDE LEVEL 34 MEQ/L (21-32); CHLORIDE LEVEL 96 MEQ/L (98-107); CREATININE FOR GFR 1.17 MG/DL (0.70-1.30); GLOMERULAR FILTRATION RATE > 60.0 (>42); GLUCOSE, FASTING 102 MG/DL (70-100); MAGNESIUM LEVEL 2.4 MG/DL (1.8-2.4); NT-PRO BNP 140 PG/ML (<450); POTASSIUM SERUM 3.9 MEQ/L (3.5-5.1); SODIUM LEVEL 132 MEQ/L (136-145); TOTAL PROTEIN 6.6 GM/DL (6.4-8.2)
== END ==
LOC: M LABDRAWC 15:47
PROVIDERS: ATTEND Internal Medicine Cardiovascular Disease
DX: I11.9 Hypertensive heart disease without heart failure (principal)

== ENCOUNTER → 2021-03-01 | Outpatient (REF) | payer MEDICARE, MEDICAID ==
[2021-03-01 16:17] LABS: BASO # 0.1 10^3/uL (0.0-0.2); BASO % 0.8 % (0.0-1.0); EOS # 0.1 10^3/uL (0.0-0.5); EOS % 2.3 % (0.0-3.0); HEMATOCRIT 31.6 % (42.0-52.0); HEMOGLOBIN 10.7 g/dl (13.5-17.5); LYMPH # 1.3 10^3/uL (1.5-5.0); LYMPH % 21.6 % (24.0-44.0); MEAN CORPUSCULAR HEMOGLOBIN 31.7 pg (27.0-33.0); MEAN CORPUSCULAR HGB CONC 33.9 g/dl (32.0-36.5); MEAN CORPUSCULAR VOLUME 93.5 fl (80.0-96.0); MONO # 0.8 10^3/uL (0.0-0.8); MONO % 12.1 % (2.0-8.0); NEUTROPHILS # 3.9 10^3/uL (1.5-8.5); NEUTROPHILS % 62.7 % (36.0-66.0); PLATELET COUNT, AUTOMATED 265 10^3/uL (150-450); RED BLOOD COUNT 3.38 10^6/uL (4.30-6.10); WHITE BLOOD COUNT 6.2 10^3/uL (4.0-10.0)
[2021-03-01 16:59] LABS: ALBUMIN 3.5 GM/DL (3.2-5.2); ALT/SGPT 32 U/L (12-78); BILIRUBIN,TOTAL 1.7 MG/DL (0.2-1.0); BLOOD UREA NITROGEN 11 MG/DL (7-18); CALCIUM LEVEL 8.6 MG/DL (8.8-10.2); CARBON DIOXIDE LEVEL 29 MEQ/L (21-32); CHLORIDE LEVEL 93 MEQ/L (98-107); CHOLESTEROL LEVEL 108 MG/DL (<200); CHOLESTEROL RISK RATIO 1.213 (<5); CREATININE FOR GFR 0.76 MG/DL (0.70-1.30); GLOMERULAR FILTRATION RATE > 60.0 (>42); GLUCOSE, FASTING 92 MG/DL (70-100); HDL CHOLESTEROL 89 MG/DL (>40); LDL CHOLESTEROL 7 MG/DL (<100); NON-HDL-C 19 MG/DL; POTASSIUM SERUM 3.8 MEQ/L (3.5-5.1); SODIUM LEVEL 128 MEQ/L (136-145); TOTAL PROTEIN 6.5 GM/DL (6.4-8.2); TRIGLYCERIDES LEVEL 58 MG/DL (<150)
== END ==
LOC: M LABDRAWC 15:48
PROVIDERS: ATTEND Internal Medicine
DX: I10 Essential (primary) hypertension (principal); E78.00 Pure hypercholesterolemia, unspecified

== ENCOUNTER → 2021-06-18 | Outpatient (CLI) | payer MEDICARE, MEDICAID ==
[~2021-06-18] MED LIST changes: +OMEP40CA4 PO; -OMEP40CA97 PO
--- NOTE | 2021-06-18 12:04 | REP ---
INDICATION: COUGH COMPARISON: Multiple the latest 02/04/2017 a low-dose screening CT of the lungs TECHNIQUE: Standard helical technique without contrast FINDINGS: The mediastinum and pulmonary sharon are essentially unchanged. The imaged upper abdomen and imaged osseous structures are centrally unchanged. Evaluation of the lung bishop shows chronic emphysematous changes with lung field hyperexpansion status quo. There are new scattered reticulonodular densities in the right middle and left lower lobes. There is cylindrical bronchiectasis and there is evidence of debris in the left lower lobe bronchioles associated with these reticulonodular densities. There is evidence of a new asymmetric density in the antral basal segment of the left lower lobe which measures 6 mm. IMPRESSION: 1. New reticulonodular densities and new left lung nodule as described above. The reticulonodular densities seen in association with bronchiectasis and debris-filled and partially debris-filled bronchioles may be secondary to infectious/inflammatory etiology. Neoplastic change cannot be ruled out. 2. According to the revised Fleischner society criteria follow-up for the new lung nodule is required in 3 months as a represents a category 4A nodule. 3. Other findings and chronic lung field changes as described above. Consider pulmonary consultation. <Electronically signed by Erick Phoenix > 06/18/21 [id number]
== END ==
LOC: M RAD 11:35
PROVIDERS: ATTEND Internal Medicine
DX: R91.8 Other nonspecific abnormal finding of lung field (principal); R05 Cough

== ENCOUNTER → 2021-07-29 | Outpatient (REF) | payer MEDICARE, MEDICAID ==
[2021-07-29 19:30] LABS: BASO # 0.1 10^3/uL (0.0-0.2); BASO % 0.9 % (0.0-1.0); EOS # 0.1 10^3/uL (0.0-0.5); EOS % 1.2 % (0.0-3.0); HEMATOCRIT 33.5 % (42.0-52.0); HEMOGLOBIN 11.3 g/dl (13.5-17.5); LYMPH # 1.3 10^3/uL (1.5-5.0); LYMPH % 17.1 % (24.0-44.0); MEAN CORPUSCULAR HGB CONC 33.7 g/dl (32.0-36.5); MONO # 0.9 10^3/uL (0.0-0.8); MONO % 11.8 % (2.0-8.0); NEUTROPHILS # 5.3 10^3/uL (1.5-8.5); NEUTROPHILS % 68.7 % (36.0-66.0); PLATELET COUNT, AUTOMATED 251 10^3/uL (150-450); RED BLOOD COUNT 3.64 10^6/uL (4.30-6.10); WHITE BLOOD COUNT 7.7 10^3/uL (4.0-10.0)
[2021-07-29 20:00] LABS: ALBUMIN 3.1 GM/DL (3.2-5.2); BLOOD UREA NITROGEN 14 MG/DL (7-18); CALCIUM LEVEL 8.5 MG/DL (8.8-10.2); CARBON DIOXIDE LEVEL 30 MEQ/L (21-32); CHLORIDE LEVEL 96 MEQ/L (98-107); CREATININE FOR GFR 0.91 MG/DL (0.70-1.30); GLOMERULAR FILTRATION RATE > 60.0 (>42); GLUCOSE, FASTING 102 MG/DL (70-100); MAGNESIUM LEVEL 1.9 MG/DL (1.8-2.4); NT-PRO BNP 345 PG/ML (<450); PHOSPHORUS LEVEL 3.5 MG/DL (2.5-4.9); SODIUM LEVEL 132 MEQ/L (136-145)
[2021-07-29 20:20] LABS: ERYTHROCYTE SEDIMENTATION RATE 8 mm/hr (0-20)
== END ==
LOC: M LABDRAWC 18:06
PROVIDERS: ATTEND Internal Medicine Cardiovascular Disease
DX: R06.02 Shortness of breath (principal); I27.81 Cor pulmonale (chronic); D64.9 Anemia, unspecified; I11.9 Hypertensive heart disease without heart failure; R94.31 Abnormal electrocardiogram [ECG] [EKG]; R63.4 Abnormal weight loss

== ENCOUNTER → 2021-08-20 | Outpatient (CLI) | payer MEDICARE, MEDICAID ==
[~2021-08-20] MED LIST changes: +E-Z-GAS II EFFERVESCENT PACKET (SODIUM BICARB./CITRIC ACID/SIMETHICONE) As Ordered ONE; +E-Z-HD 98% w/w 340GM SUSP BTL As Ordered ONE; +E-Z-PAQUE 96% w/w SUSP 176GM BTL As Ordered ONE
--- NOTE | 2021-08-20 17:16 | REP ---
INDICATION: DYSPHAGIA. COMPARISON: None TECHNIQUE: This procedure was performed by Deedee Bowser [facility], under the direct supervision of Dr. Currie. Images were reviewed with Dr. Currie prior to dictation. Liquid barium and gas producing crystals were given in the erect position. FINDINGS: A single view PA chest x-ray is submitted as a helper coordinator film. The superior mediastinal structures are midline. The heart size is within normal limits. The lungs are clear. There is aspiration of the barium material on the 2nd swallowing attempt. There is a prominent cricopharyngeus. At this time the procedure was aborted. The visualized portion of the proximal esophagus appears normal. This is a technically limited exam due to aspiration. Consider evaluation with speech pathology and a cookie swallow. IMPRESSION: Aspiration of the barium material on the 2nd swallowing attempt. Procedure was aborted at that time. Consider evaluation with speech pathology and a cookie swallow. 0.1 minutes of fluoroscopy time was utilized for this procedure. Some fluoroscopic images are performed with last image hold technology. These images require no additional radiation. <Electronically signed by Deedee Bowser > 08/20/21 1648 <Electronically signed by Joselito Currie > 08/20/21 1717
== END ==
LOC: M RAD 09:52
PROVIDERS: ATTEND Surgery
DX: R13.10 Dysphagia, unspecified (principal)

== ENCOUNTER → 2021-09-07 | Outpatient (CLI) | payer MEDICARE, MEDICAID ==
[~2021-09-07] MED LIST changes: +ALBU8.5H; -E-Z-GAS II EFFERVESCENT PACKET (SODIUM BICARB./CITRIC ACID/SIMETHICONE) As Ordered ONE; -E-Z-HD 98% w/w 340GM SUSP BTL As Ordered ONE; -E-Z-PAQUE 96% w/w SUSP 176GM BTL As Ordered ONE; +SPIR-10
== END ==
LOC: M LABSMTC 10:08
PROVIDERS: ATTEND Anesthesiology
DX: Z01.812 Encounter for preprocedural laboratory examination (principal); Z20.822 Contact with and (suspected) exposure to COVID-19

== ENCOUNTER 2021-09-12 08:48 | Day surgery (SDC) | payer MEDICARE, MEDICAID ==
[~2021-09-12] VITALS: Ht 180.3 cm; Wt 49.0 kg
[~2021-09-12 08:48] MED LIST changes: +NS 1,000 ML IV ONE
[2021-09-12] MEDS ORDERED: propofoL 200 MG/20 ML VIAL As Ordered ONE (08:52)
[2021-09-12] MEDS ORDERED: LIDOCAINE 2% 100MG/5ML SDV (FOR ANES.) As Ordered ONE (08:52)
--- OUTSIDE RECORDS SUMMARY | 2021-09-12 08:53 | CCD ---
Continuity of Care Document (CCD) Created on: 08/01/2021 Joselito Palm External Reference #: [id number] : [id number] Sex: Male Author Author Joselito ALVARENGA MD Organization Unknown Address [place] [address] Phone [phone] Care Team Providers Care Astrobiologist Name Role Phone Drew Villalobos MD AUTM [phone] Rodrigo Schilling DO AUTM [phone] Anisha Robles AUTM [phone] Christopher Mensah JR, MD AUTM [phone] Clarisa Berry MD AUTM [phone] Elbert Mckeon MD AUTM [phone] Lucio Daniel MD AUTM [phone] Problems Active Problems Provider Date Dyspnea Mika Alvarenga MD Onset: 10/04/2012 Electrocardiogram abnormal Mika Alvarenga MD Onset: 2011 Edema Mika Alvarenga MD Onset: 10/04/2012 Benign hypertensive heart disease without congestive h eart failure Mika Alvarenga MD Onset: 10/04/2012 Aortic valve disorder Mika Alvarenga MD Onset: 10/04/2012 Carotid artery occlusion Mika Alvarenga MD Onset: 10/04/20 12 Chronic obstructive lung disease Mika Alvarenga MD Onset: 10/04/2012 Syncope and collapse Mika Alvarenga MD Onset: 10/04/2012 Dizziness and giddiness Mika Alvarenga MD Onset: 3 Difficulty breathing Mika Alvarenga MD Onset: 10/02/2015 Hyperlipidemia Mika Alvarenga MD Onset: 08/18/2016 Dietary management surveillance JAYDA Conner Onset: 05/20/2018 Precordial pain JAYDA Conner Onset: 05/20/2018 Cardiovascular stress test abnormal Mika Alvarenga MD Onse t: 06/07/2018 Atherosclerotic heart disease of [place] coronary arter y without angina pectoris JAYDA Conner Onset: 06/21/2018 Benign hypertensive heart disease with congestive card iac failure Mika Alvarenga MD Onset: 07/30/2021 Chronic pulmonary heart disease Mika Alvarenga MD Onset: 0 11/19/2020 Chronic cor pulmonale Mika Alvarenga MD Onset: 07/15/2021 Chronic diastolic heart failure Mika Alvarenga MD Onset: 0 07/30/2021 Social History Type Date Description Comments Sex Unknown ETOH Use Consumes Beer 3-4 daily ETOH Use Consumes Wine 3 4oz glasses wi ne daily Tobacco Use Start: Unknown End: Unknown Patient is a former smoker quit 06/2012, smoked for 60 yrs up to 3 ppd Smoking Status Reviewed: 12/07/19 Patient is a former smoker qu it 06/2012, smoked for 60 yrs up to 3 ppd Exercise Type/Frequency Walks daily Exercise Type/Frequency Does housework 3 times a week Exercise Type/Frequency Does yardwork twice a we ek Exercise Type/Frequency General 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[employer] Exercise Limitations Shortness Of Breath Allergies, Adverse Reactions, Alerts Description No Known Drug Allergies Medications Active Medications SIG Qnty Indications Ordering Provide r Date Torsemide 5mg Tablets 1 by mouth every day 30tabs I11.9 Mika Alvarenga MD 07/15/2021 R06.02 I27.81 Spironolactone 25mg Tablets 1/2 by mouth every day 45tabs I11.9 Mika Alvarenga MD 07/25/[address] 1 by mouth every day Makenna DINH MD, [facility] 020 Aspirin 81mg Chewtabs 2 by mouth every day Unknown 12/06/2019 Losartan Potassium 100mg Tablets 1 by mouth every night at bedtime Unknown 04/2019 Iron 27 240(27Fe) mg Tablets 1 by mouth every day Unknown 11/23/2018 Ventolin HFA 108(90Base) mcg/Act A erosol 2 puffs as needed Unknown 07/06/[address] 1 by mouth twice a day Unknown 06/20/2018 Osteo Bi-Flex Joint Shield Formula With 5-Loxin Tablets 2 daily Unknown 06/20/2018 Atorvastatin Calcium 80mg Tablets Take One Tablet By Mouth AT Bedtime 90tabs E78.4 Mika Alvarenga MD Bisoprolol Fumarate 5mg Tablets Take One- Half Tablet By Mouth Once Daily 45tabs Mika Alvarenga MD 10/12/2017 Incruse Ellipta 62.5mcg/Inh Aeroso l 1 puff daily Unknown 03/02/2016 Multivitamins Capsules 1 by mouth every day Unknown 10/01/2015 Immunizations Description No Information Available Vital Signs Date Vital Result Comment 07/30/2021 10:37am Weight 107.00 lb Home Weight 102lb Height 71 inches 5'11" BMI (Body Mass Index) 14.9 kg/m2 Heart Rate 76 /min regular Respiratory Rate 18 /min BP Systolic Sitting 113 mmHg Medium cuff, Ra BP Diastolic Sitting 54 mmHg Medium cuff, Ra BP Systolic Lying Down 120 mmHg BP Diastolic Lying Down 56 mmHg 07/15/2021 10:34am Weight 107.00 lb Home Weight 105lb home weight Height 71 inches 5'11" BMI (Body Mass Index) 14.9 kg/m2 Heart Rate 68 /min regular Respiratory Rate 16 /min BP Systolic Sitting 148 mmHg Medium cuff, Ra BP Diastolic Sitting 66 mmHg Medium cuff, Ra BP Systolic Lying Down 162 mmHg BP Diastolic Lying Down 68 mmHg Results Test Acquired Date Facility Test Result H/L Range Note Renal Profile 07/29/2021 [facility] nter [phone] Glucose, Fasting 102 mg/dL High 70-100 Blood Urea Nitrogen 14 mg/dL Normal 7-18 Creatinine For GFR 0.91 mg/dL Normal 0.70-1.30 Glomerular Filtration Rate > 60.0 Normal >42 1 Sodium Level 132 mEq/L Low 136-145 Potassium Serum 4.0 mEq/L Normal 3.5-5.1 Chloride Level 96 mEq/L Low 98-107 Carbon Dioxide Level 30 mEq/L Normal 21-32 Anion Gap 6 mEq/L Low 8-16 Calcium Level 8.5 mg/dL Low 8.8-10.2 Phosphorus Level 3.5 mg/dL Normal 2.5-4.9 Albumin 3.1 GM/DL Low 3.2-5.2 Laboratory test finding 07/29/2021 [facility] [phone] NT-Pro BNP 345 pg/mL Normal <450 Laboratory test finding 07/29/2021 [facility] [phone] Erythrocyte Sedimentation Rate 8 mm/hr Normal 0 -20 Magnesium Level 1.9 mg/dL Normal 1.8-2.4 Retic (Reticulocyte Count) 07/29/2021 [facility] [phone] Reticulocyte % 1.6 % High 0.5-1.5 Reticulocyte # 58.6 10 Normal 17-77 Retic Hemoglobin Equivalent 35.9 pg Normal 24-36 CBC W/Auto Differential 07/29/2021 [facility] - not interf aced (315)- - Hemoglobin Blood 11.3 Hematocrit 33.5 MCV (Corpuscular Volume) 92.0 MCH (Corpuscular Hemoglobin) 31.0 MCHC (Corpuscular Hemog Conc) 33.7 RDW 14.2 Platelet Count Blood Auto CNT 251 MPV -- Neutrophils 68.7 Fluid Bands -- Fluid Lymphocytes 17.1 Monocytes 11.8 Fluid Body Eosinophils 1.2 Basophils % 0.9 Absolute Basophils 0.1 Absolute Eosinophils 0.1 Absolute Lymphocytes 1.3 Absolute Monocytes 0.9 Absolute Neutrophils Auto CNT 5.3 CMP 06/17/2021 [facility] [address] [place], [place] [id number] [phone] Albumin Serum/Plasma 3.1 Alt - SGPT 29 Calcium Ser/Plasma Mass/Vol 9.0 Carbon Dioxide Ser/Plasm 33 Chloride Serum/Plasma 94 Alkaline Phosphatase 76 Potassium 4.4 Protein Total 6.3 Sodium 129 Ast - Sgot 36 BUN - Urea Nitrogen 10 Glucose 92 74-99 Creatinine For GFR 0.9 Lipid Profile/Cardiac Risk Pro 06/17/2021 [facility] [address] [place] [address] [phone] Triglycerides 39 30-150 Cholesterol 103 Low 131-200 HDL 81 High 35-60 LDL Cholesterol -- Low 50-159 Chol/HDL Ratio -- CBC without Differential 06/17/2021 [facility] [address] [place], [place] [id number] [phone] White Blood Count 8.5 4.1-10.9 Red Blood Count 3.46 Low 4.2-6.30 Platelets 311 140-440 Hemoglobin 10.5 Low 12.0-18.0 Hematocrit 30.9 37.0-51.0 1 Units are mL/min/1.73 m2 Chronic Kidney Disease Staging per NKF: Stage I & II GFR >=60 Normal to Mildly Decreased Stage III GFR 30-59 Moderately Decreased Stage IV GFR 15-29 Severely Decreased Stage V GFR <15 Very Little GFR Left ESRD GFR <15 on PRODUCT DEVELOPMENT TECHNICIAN Procedures Date Code Description Status 07/30/2021 55876 Office/Outpatient Established Mo d MDM 30-39 Min Completed 07/15/2021 90293 Office/Outpatient Established Mo d MDM 30-39 Min Completed 07/15/2021 58410 ECG 12-Lead Completed 07/02/2021 22786 Chronic Care MGMT 20 Mins Clinical Staff Time Per Calendar Month Completed 05/28/2021 74131 Chronic Care MGMT 20 Mins Clinical Staff Time Per Calendar Month Completed 05/28/2021 60536 Chronic Care Management Services Ea Addl 20 Min Completed 04/24/2021 89292 Chronic Care MGMT 20 Mins Clinical Staff Time Per Calendar Month Completed 02/04/2021 42471 Chronic Care MGMT 20 Mins Clinical Staff Time Per Calendar Month Completed Medical Devices Description No Information Available Encounters Type Date Location Provider Dx Diagnosis Office Visit 07/30/2021 10:30a Main Office Mika Alvarenga MD I50.32 Chronic diastolic (congestive) heart failure I25.10 Athscl heart disease of [place] coronary artery w/o ang pctrs I11.0 Hypertensive heart disease w ith heart failure I27.81 Cor pulmonale (chronic) Office Visit 07/15/2021 10:30a Main Office Mika Alvarenga MD R06.02 Shortness of breath R94.31 Abnormal electrocardiogram [ ECG] [EKG] I25.10 Athscl heart disease of [place] coronary artery w/o ang pctrs I11.9 [facility] Cor pulmonale (chronic) Office Visit 07/02/2021 1:01p Main Office Mika Alvarenga MD I25.10 Athscl heart disease of [place] coronary artery w/o ang pctrs I11.9 [facility] E78[facility]5 Hyperlipidemia, unspecified Office Visit 05/28/2021 10:51a Main Office Mika Alvarenga MD I11.9 Hypertensive heart disease without heart failure E78.5 Hyperlipidemia, unspecified Office Visit 04/24/2021 8:37a Main Office Mika Alvarenga MD I11.9 Hypertensive heart disease without heart failure E78.5 Hyperlipidemia, unspecified Office Visit 02/04/2021 2:15p Main Office Mika Alvarenga MD I11.9 Hypertensive heart disease without heart failure E78.5 Hyperlipidemia, unspecified Assessments Date Code Description Provider 07/30/2021 I50.32 Chronic diastolic (congestive) h eart failure Mika Alvarenga MD 07/30/2021 I25.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 Mika Alvarenga MD 07/30/2021 I11.0 Hypertensive heart disease with heart failure Mika Alvarenga MD 07/30/2021 I27.81 Cor pulmonale (chronic) Mika Alvarenga MD 07/15/2021 R06.02 Shortness of breath Mika mccarthy MD 07/15/2021 R94.31 Abnormal electrocardiogram [ECG] [EKG] Mika Alvarenga MD 07/15/2021 I25.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 Mika Alvarenga MD 07/15/2021 I11.9 Hypertensive heart disease witho ut heart failure Mika Alvarenga MD 07/15/2021 I27.81 Cor pulmonale (chronic) Mika Alvarenga MD 07/02/2021 I25.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 Mika Alvarenga MD 07/02/2021 I11.9 Hypertensive heart disease witho ut heart failure Mika Alvarenga MD 07/02/2021 E78.5 Hyperlipidemia, unspecified Lele Alvarenga MD 05/28/2021 I11.9 Hypertensive heart disease witho ut heart failure Mika Alvarenga MD 05/28/2021 E78.5 Hyperlipidemia, unspecified Lele Alvarenga MD 04/24/2021 I11.9 Hypertensive heart disease witho ut heart failure Mika Alvarenga MD 04/24/2021 E78.5 Hyperlipidemia, unspecified Lele Alvarenga MD 02/04/2021 I11.9 Hypertensive heart disease witho ut heart failure Mika Alvarenga MD 02/04/2021 E78.5 Hyperlipidemia, unspecified Lele Alvarenga MD Plan of Treatment Future Appointment(s):* 10/21/2021 11:00 am - ECHO at Main Office 07/30/2021 - Mika Alvarenga MD* I50.32 Chronic diastolic (congestive) heart failure* New Xrays:* US Echocardiogram Transthoracic W Doppler And Color Flow, Ordered: 07/30/21 * Recommendations:* Clinical signs of improved congestion along with better blood pressure control on his current combination therapy. Recent chemistry confirms electrolyte balance with normal renal function and presently normal proBNP level. Have requested a follow-up echocardiogram/Doppler study to reassess left ventricular size and function compared with last year. Recommend that he continues to follow a salt intake restriction. No change has been made to his present combination torsemide and spironolactone. * I25.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* Recommendations:* Post LAD PTCA: With his current level of activity has remained free of symptomatic myocardial ischemia. No follow-up EKG was done today. Would encourage his continued regular exercise. Recommend he continue with his current protective combination bisoprolol, losartan, atorvastatin, and aspirin. Requested he contact us should he develop effort related chest, jaw, or arm discomforts. * I11.0 Hypertensive heart disease with heart failure* Recommendations:* Believed to be compensated with improved blood pressure as mentioned above. Chemistry as noted. Dietary measures and activity as recommended above. We will continue on the same combination bisoprolol, losartan, torsemide and spironolactone. * I27.81 Cor pulmonale (chronic)* Recommendations:* Cough has improved. Will be taking his home sleep study following his vacation cruise next month. Scheduled for barium swallow and ENT consultation. For the time being, have encouraged his continued use of omeprazole with his iron replacement therapy. Would also recommend regular use of his Incruse Ellipta and Ventolin inhalers. * All * Comments:* I will ensure that the aforementioned test findings are reported to you along with any further recommendations. Thank you for allowing me to participate in the care of your patient. Best regards. * Follow up:* Specific follow-up will depend on his echocardiographic findings. Functional Status Functional Condition Comment Date Status Independent with all ADL's Activ e Requires assistance with ambulating using cane Active Mental Status Description No Information Available Referrals Description No Information Available
--- OUTSIDE RECORDS SUMMARY | 2021-09-12 08:53 | CCD | Continuity of Care Document ---
Author Author Joselito ALVARENGA MD Organization Unknown Address [facility] [address] Phone [phone] Care Team Providers Care Delivery Mgr Name Role Phone Drew Villalobos MD AUTM [phone] Rodrigo Schilling DO AUTM [phone] Anisha Robles AUTM [phone] Christopher Mensah JR, MD AUTM Clarisa Berry MD AUTM [phone] Elbert Mckeon MD AUTM [phone] Lucio Daniel MD AUTM [phone] Problems Active Problems Provider Date Dyspnea Mika [...] Onse t: 06/07/2018 Atherosclerotic heart disease of [place] coronary arter y without angina pectoris JAYDA Conner Onset: 06/21/2018 Chronic cor pulmonale Mika Alvarenga MD Onset: 07/15/2021 Chronic pulmonary heart disease Mika Alvarenga MD Onset: 0 11/19/2020 Social History Type Date Description Comments Sex [...] ek Exercise Type/Frequency General 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[employer] Exercise Limitations Shortness Of Breath Allergies, Adverse [...] by mouth every day Makenna DINH MD, [facility] 020 Aspirin 81mg Chewtabs 2 by mouth [...] Available Vital Signs Date Vital Result Comment 07/15/2021 10:34am Weight 107.00 lb Home Weight 105lb home weight Height 71 inches 5'11" BMI (Body Mass Index) 14.9 kg/m2 Heart Rate 68 /min regular Respiratory Rate 16 /min BP Systolic Sitting 148 mmHg Medium cuff, Ra BP Diastolic Sitting 66 mmHg Medium cuff, Ra BP Systolic Lying Down 162 mmHg BP Diastolic Lying Down 68 mmHg 11/19/2020 10:43am Weight 116.00 lb Home Weight 109lb home weight Height 71 inches 5'11" BMI (Body Mass Index) 16.2 kg/m2 Heart Rate 68 /min regular with occasio nal irregularity Respiratory Rate 16 /min BP Systolic Sitting 128 mmHg Medium cuff, Ra BP Diastolic Sitting 54 mmHg Medium cuff, Ra BP Systolic Lying Down 136 mmHg BP Diastolic Lying Down 63 mmHg O2 % BldC Oximetry 98 % O2 Saturation Level with Exercise 93 % Results Test Acquired Date Facility Test Result H/L Range Note CMP 06/17/2021 [facility] [address] [place] [address] [id number] [phone] Albumin Serum/Plasma 3.1 Alt - SGPT 29 Calcium Ser/Plasma Mass/Vol 9.0 Carbon Dioxide Ser/Plasm 33 Chloride Serum/Plasma 94 Alkaline Phosphatase 76 Potassium 4.4 Protein Total 6.3 Sodium 129 Ast - Sgot 36 BUN - Urea Nitrogen 10 Glucose 92 74-99 Creatinine For GFR 0.9 Lipid Profile/Cardiac Risk Pro 06/17/2021 [facility] [address] [place] [address] [phone] Triglycerides 39 30-150 Cholesterol 103 Low 131-200 HDL 81 High 35-60 LDL Cholesterol -- Low 50-159 Chol/HDL Ratio -- CBC without Differential 06/17/2021 [facility] [address] [id number] [phone] White Blood Count 8.5 4.1-10.9 Red Blood Count 3.46 Low 4.2-6.30 Platelets 311 140-440 Hemoglobin 10.5 Low 12.0-18.0 Hematocrit 30.9 37.0-51.0 Procedures Date Code Description Status 07/15/2021 28239 Office/Outpatient Established Mo d MDM 30-39 Min Completed 07/15/2021 67258 ECG 12-Lead Completed 05/28/2021 70445 Chronic Care MGMT 20 Mins Clinical Staff Time Per Calendar Month Completed 05/28/2021 95409 Chronic Care Management Services Ea Addl 20 Min Completed 04/24/2021 48602 Chronic Care MGMT 20 Mins Clinical Staff Time Per Calendar Month Completed 02/04/2021 66572 Chronic Care MGMT 20 Mins Clinical Staff Time Per Calendar Month Completed Medical Devices Description No Information Available Encounters Type Date Location Provider Dx Diagnosis Office Visit 07/15/2021 10:30a Main Office Mika Alvarenga MD R06.02 Shortness of breath R94.31 Abnormal electrocardiogram [ ECG] [EKG] I25.10 Athscl heart disease of michel[place] ve coronary artery w/o ang pctrs I11.9 Hypertensive heart disease w ithout heart failure I27.81 Cor pulmonale (chronic) Office Visit 05/28/2021 10:51a Main Office Mika Alvarenga MD I11.9 Hypertensive heart disease without heart failure E78.5 Hyperlipidemia, unspecified Office Visit 04/24/2021 8:37a Main Office Mika Alvarenga MD I11.9 Hypertensive heart disease without heart failure E78.5 Hyperlipidemia, unspecified Office Visit 02/04/2021 2:15p Main Office Mika Alvarenga MD I11.9 Hypertensive heart disease without heart failure E78.5 Hyperlipidemia, unspecified Assessments Date Code Description Provider 07/15/2021 R06.02 Shortness of breath Mika mccarthy MD 07/15/2021 R94.31 Abnormal electrocardiogram [ECG] [EKG] Mika Alvarenga MD 07/15/2021 I25.10 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 Mika Alvarenga MD 07/15/2021 I11.9 Hypertensive heart disease witho ut heart failure Mika Alvarenga MD 07/15/2021 I27.81 Cor pulmonale (chronic) Mika Alvarenga MD 05/28/2021 I11.9 Hypertensive heart disease witho nm heart failure Mika Alvarenga MD 05/28/2021 E78.5 Hyperlipidemia, unspecified Lele Alvarenga MD 04/24/2021 I11.9 Hypertensive heart disease witho nm heart failure Mika Alvarenga MD 04/24/2021 E78.5 Hyperlipidemia, unspecified Lele Alvarenga MD 02/04/2021 I11.9 Hypertensive heart disease witho nm heart failure Mika Alvarenga MD 02/04/2021 E78.5 Hyperlipidemia, unspecified Lele Alvarenga MD Plan of Treatment Future Appointment(s):* 07/30/2021 10:30 am - Mika Alvarenga MD at Main Office 07/15/2021 - Mika Alvarenga MD* R06.02 Shortness of breath* New Medication:* Torsemide 5 mg - 1 by mouth every day * New Labs:* Renal Profile, Scheduled: 07/29/21 * NT Probnp QN Ser/Plas, Scheduled: 07/29/21 * Magnesium Level, Scheduled: 07/29/21 * CBC W/Auto Differential, Scheduled: 07/29/21 * Reticulocyte Count, Scheduled: 07/29/21 * Sedimentation Rate, Scheduled: 07/29/21 * Recommendations:* Slightly worsening effort dyspnea with additional lower leg swelling despite a 9 pound weight loss from last November. Note is made of his recurrent anemia though no obvious source of bleeding. Is on low-dose iron replacement therapy and scheduled for further GI evaluation with Dr. Mckeon. With his observed blood pressure today and his edema, have replaced his chlorthalidone with torsemide 5 mg daily as long as he has lower leg swelling. Should continue following a salt intake restriction and his spironolactone therapy. Follow-up complete blood count and chemistry will be obtained in 2 weeks just prior to a clinic visit. Have also encouraged the regular use of his Ventolin inhaler 4 times a day with his Incruse Ellipta. * R94.31 Abnormal electrocardiogram [ECG] [EKG]* New Labs:* Magnesium Level, Scheduled: 07/29/21 * Recommendations:* Interestingly, appears to have less atrial ectopic cavity the last time despite signs of congestion. Otherwise no change from last November. Have encouraged continued minimizing intake of caffeinated beverages, alcohol, nicotine, [id number] decongestants etc. 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 EKG as mentioned above. Recent lipid profile shows optimal values and liver function studies were normal on his current statin therapy. Would encourage his continued regular exercise. No change would be suggested to his current protective combination bisoprolol, losartan, atorvastatin, and aspirin. Requested he contact us should he develop effort related chest, jaw, or arm discomforts. * I11.9 Hypertensive heart disease without heart failure* New Medication:* Torsemide 5 mg - 1 by mouth every day * New Labs:* NT Probnp QN Ser/Plas, Scheduled: 07/29/21 * Recommendations:* Despite his weight loss has developed signs of congestion with an increase in his blood pressure readings from last time. Management as per assessment #1. * I27.81 Cor pulmonale (chronic)* New Medication:* Torsemide 5 mg - 1 by mouth every day * New Labs:* NT Probnp QN Ser/Plas, Scheduled: 07/29/21 * Magnesium Level, Scheduled: 07/29/21 * New Orders:* Home Sleep Study, Scheduled: 07/24/21 * Recommendations:* Continues to describe a productive cough and is tentatively scheduled to meet with ENT for further evaluation. We have also requested a home sleep study. Encouraged regular use of his Ventolin and Incruse Ellipta inhalers as mentioned above. * All * Comments:* I will ensure that the aforementioned test findings are reported to you along with any further recommendations. Thank you for allowing me to participate in the care of your patient. Best regards. * Follow up:* Clinic visit CHF check with chemistry in 2 weeks Functional Status Functional Condition Comment Date Status Independent with all ADL's Activ e Requires assistance with ambulating using cane Active Mental Status Description No Information Available Referrals Description No Information Available
--- OUTSIDE RECORDS SUMMARY | 2021-09-12 08:53 | CCD | Continuity of Care Document ---
Author Author Joselito ALVARENGA MD Organization Unknown Address [facility] [place] [address] Phone [phone] Care Team Providers Care Scrap Piler Name Role Phone Drew Villalobos MD AUTM [phone] Rodrigo Schilling DO AUTM [phone] Anisha Robles AUTM [phone] Christopher Mensah JR, MD AUTM Clarisa Berry MD AUTM [phone] Elbert Mckeon MD AUTM [phone] Lucio Daniel MD AUTM [phone] Problems Active Problems Provider Date Dyspnea Mika [...] Onse t: 06/07/2018 Atherosclerotic heart disease of [place] coronary arter y without angina pectoris JAYDA [...] ek Exercise Type/Frequency General 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[employer] Exercise Limitations Shortness Of Breath Allergies, Adverse [...] by mouth every day Makenna DINH MD, [facility] 020 Aspirin 81mg Chewtabs 2 by [...] Result H/L Range Note Renal Profile 07/29/2021 [facility] nter [phone] Glucose, Fasting 102 mg/dL High 70-100 Blood [...] GM/DL Low 3.2-5.2 Laboratory test finding 07/29/2021 [facility] [phone] NT-Pro BNP 345 pg/mL Normal <450 Laboratory test finding 07/29/2021 [facility] [phone] Erythrocyte Sedimentation Rate 8 mm/hr Normal 0 -20 Magnesium Level 1.9 mg/dL Normal 1.8-2.4 Retic (Reticulocyte Count) 07/29/2021 [facility] [phone] Reticulocyte % 1.6 % High 0.5-1.5 Reticulocyte # 58.6 10 Normal 17-77 Retic Hemoglobin Equivalent 35.9 pg Normal 24-36 CMP 06/17/2021 [facility] [address] [place], [place] [id number] [phone] Albumin Serum/Plasma 3.1 Alt - SGPT 29 Calcium Ser/Plasma Mass/Vol 9.0 Carbon Dioxide Ser/Plasm 33 Chloride Serum/Plasma 94 Alkaline Phosphatase 76 Potassium 4.4 Protein Total 6.3 Sodium 129 Ast - Sgot 36 BUN - Urea Nitrogen 10 Glucose 92 74-99 Creatinine For GFR 0.9 Lipid Profile/Cardiac Risk Pro 06/17/2021 [facility] [address] [place] [address] [phone] Triglycerides 39 30-150 Cholesterol 103 Low 131-200 HDL 81 High 35-60 LDL Cholesterol -- Low 50-159 Chol/HDL Ratio -- CBC without Differential 06/17/2021 [facility] [address] [place], [place] [id number] [phone] White Blood Count 8.5 4.1-10.9 Red Blood [...] Little GFR Left ESRD GFR <15 on [employer]LE[employer] Procedures Date Code Description Status 07/15/2021 01810 Office/Outpatient Established Mo d MDM 30-39 Min Completed 07/15/2021 99595 ECG 12-Lead Completed 07/02/2021 38595 Chronic Care MGMT 20 Mins Clinical Staff Time Per Calendar Month Completed 05/28/2021 88821 Chronic Care MGMT 20 Mins Clinical Staff Time Per Calendar Month Completed 05/28/2021 66083 Chronic Care Management Services Ea Addl 20 Min Completed 04/24/2021 72095 Chronic Care MGMT 20 Mins Clinical Staff Time Per Calendar Month Completed 02/04/2021 78268 Chronic Care MGMT 20 Mins Clinical Staff [...] MD 07/15/2021 I25.10 Atherosclerotic heart disease of [place] coronary artery with Mika Alvarenga MD 07/15/2021 I11.9 Hypertensive heart disease witho ut heart failure Mika Alvarenga MD 07/15/2021 I27.81 Cor pulmonale (chronic) Mika Alvarenga MD 07/02/2021 I25.10 Atherosclerotic heart disease of [place] coronary artery with Mika Alvarenga MD 07/02/2021 I11.9 Hypertensive heart disease witho ut heart failure Mika Alvarenga MD 07/02/2021 E78.5 Hyperlipidemia, unspecified Lele Alvarenga MD 05/28/2021 I11.9 Hypertensive heart disease witho ut heart failure Mika Alvarenga MD 05/28/2021 E78.5 Hyperlipidemia, unspecified Lele Alvarenga MD 04/24/2021 I11.9 Hypertensive heart disease witho nj heart failure Mika Alvarenga MD 04/24/2021 E78.5 Hyperlipidemia, unspecified Lele Alvarenga MD 02/04/2021 I11.9 Hypertensive heart disease witho nj heart failure Mika Alvarenga MD 02/04/2021 E78.5 Hyperlipidemia, unspecified Lele Alvarenga MD Plan of Treatment 07/15/2021 - Mika Avlarenga MD* R06.02 Shortness of breath* New Medication:* Torsemide 5 mg - 1 by mouth every day * Recommendations:* Slightly worsening effort dyspnea with [...] Ellipta. * R94.31 Abnormal electrocardiogram [ECG] [EKG]* Recommendations:* Interestingly, appears to have less atrial ectopic cavity the last time despite signs of congestion. Otherwise no change from last November. Have encouraged continued minimizing intake of caffeinated beverages, alcohol, nicotine, [id number] decongestants etc. * I25.10 Atherosclerotic heart disease of [place] coronary artery with* Recommendations:* Post LAD PTCA: [...] - 1 by mouth every day * Recommendations:* Despite his weight loss has developed signs of congestion with an increase in his blood pressure readings from last time. Management as per assessment #1. * I27.81 Cor pulmonale (chronic)* New Medication:* Torsemide 5 mg - 1 by mouth every day * New Orders:* Home Sleep Study, Scheduled: [...]
--- OUTSIDE RECORDS SUMMARY | 2021-09-12 08:53 | CCD | Continuity of Care Document ---
Author Organization Unknown Address Unknown Phone Unavailable Care Team Providers Care Tower Hand Name Role Phone Mika Alvarenga MD AUTM Unavailable Christopher Mensah JR, MD AUTM Unavailable Elbert Mckeon JR, MD AUTM [phone] Carolyne Bruner MD AUTM [phone] Problems Description No Information Available Social History Type Date Description Comments Sex Unknown ETOH Use consumes 1-2 glasses of wine per day Tobacco Use Start: Unknown End: Unknown Patient is a former smoker SMOKED FOR 60YRS 3 ARTEMIO A DAY Allergies and adverse reactions Active Allergies Criticality Reaction | Severity Comments Date Navjot Inhibitors Unable to assess criticality Cough 12/19/2014 Inactive Allergies NKDA Unable to assess criticality 12/19/2013 Medications Active Medications SIG Qnty Indications Ordering Provide r Date Aspirin [address] 2 daily Christopher Mensah MD 09/07/2019 Ferrousul 325(65Fe) mg Tablets 1 by mouth daily 60tabs Christopher Mensah MD 08/26/2018 Atorvastatin Calcium 80mg Tablets Take One Tablet By Mouth Every Day 90tabs Christopher Mensah MD 06/23/2018 Bisoprolol Fumarate 5mg Tablets 1/2 by mouth every day 90tabs Christopher Mensah MD 06/23/2018 Ventolin HFA 108(90Base) mcg/Act A erosol Inhale Two Puffs By Mouth Four Times A Day as Needed 54units Christopher Mensah MD 06/23/2018 Osteo Bi-Flex Advanced Triple Strength Tablets 2 every day by mouth Nurse #2 017 Incruse Ellipta 62.5mcg/Inh Aeroso l 1 puff every day 30units Sarah Villegas D.O. 06/[address] take two capsules by mouth every day 180caps Mary Solano 08/09/2015 Losartan Potassium 100mg Tablets Take One Tablet By Mouth Every Day 90tabs Christopher Mensah MD 08/09/2015 Mag64 535(64mg) mg Tablets ER 2 by mouth every day Unknown Chlorthalidone 25mg Tablets take 1/2 tab Mon and Thurs Unknown Spironolactone 25mg Tablets 1/2 tab daily Unknown Medications Administered in Office Medication SIG Qnty Indications Ordering Provider Date Covid-19 vaccine, Unspecified Inj ection Unknown 12/23/2020 Covid-19 vaccine, Unspecified Inj ection Unknown 12/02/2020 Administration Of Flu Vaccine Inj ection Christopher Mensah MD 08/26/2018 Depo-Medrol Injection Injection Sarah Villegas D.O. 12/06/2015 Immunizations CPT Code Status Date Vaccine Lot # U-Flu Given 08/03/2020 Influenza,Unspecified U-Flu Given 08/22/2019 Influenza,Unspecified [id number] Given 02/25/2019 Shingrix [id number] Given 12/24/2018 Shingrix Zoster Vaccine (HZV), Recombinant, Subunit, Adjuvanted 60102 Given 08/26/2018 Influenza Virus Vaccine, Quadrivalent ([id number]), Derived From 5 Given 10/07/2016 Pneumovax 23 [id number] 09821 Given 12/19/2014 Prevnar 13 [id number] Vital Signs Date Vital Result Comment 06/06/2021 8:18am BP Systolic 130 mmHg BP Diastolic 60 mmHg Height 67.50 inches 5'7.50" Weight 108.25 lb BMI (Body Mass Index) 16.7 kg/m2 09/12/2020 11:31am BP Systolic 136 mmHg BP Diastolic 62 mmHg Heart Rate 68 /min Height 67.50 inches 5'7.50" Weight 116.00 lb BMI (Body Mass Index) 17.9 kg/m2 Results Test Acquired Date Facility Test Result H/L Range Note Renal Profile 07/29/2021 [facility] nter [address] [place], [place] [id number] [phone] Glucose, Fasting 102 mg/dL High 70-100 Blood [...] GM/DL Low 3.2-5.2 Laboratory test finding 07/29/[address] [address] [phone] Magnesium Level 1.9 mg/dL Normal 1.8-2.4 NT-Pro BNP 345 pg/mL Normal <450 CBC With Differential 07/29/[address] [address] [phone] White Blood Count 7.7 10 Normal 4.0-10.0 Red Blood Count 3.64 10 Low 4.30-6.10 Hemoglobin 11.3 g/dL Low 13.5-17.5 Hematocrit 33.5 % Low 42.0-52.0 Mean Corpuscular Volume 92.0 fl Normal 80.0-96.0 Mean Corpuscular Hemoglobin 31.0 pg Normal 27.0-33.0 Mean Corpuscular HGB Conc 33.7 g/dL Normal 32.0-36.5 Red Cell Distribution Width 14.2 % Normal 11.5-14.5 Platelet Count, Automated 251 10 Normal 150-450 Neutrophils % 68.7 % High 36.0-66.0 Lymph % 17.1 % Low 24.0-44.0 Archuleta % 11.8 % High 2.0-8.0 Eos % 1.2 % Normal 0.0-3.0 Baso % 0.9 % Normal 0.0-1.0 Immature Granulocyte % 0.3 % Normal 0-3.0 Nucleated Red Blood Cell % 0.0 % Normal 0-0 Neutrophils # 5.3 10 Normal 1.5-8.5 Lymph # 1.3 10 Low 1.5-5.0 Archuleta # 0.9 10 High 0.0-0.8 Eos # 0.1 10 Normal 0.0-0.5 Baso # 0.1 10 Normal 0.0-0.2 Laboratory test finding 07/29/2021 [facility] [address] [place], [place] [id number] [phone] Erythrocyte Sedimentation Rate 8 mm/hr Normal 0 -20 Retic (Reticulocyte Count) 07/29/2021 [facility] [address] [place] [address] [phone] Reticulocyte % 1.6 % High 0.5-1.5 Reticulocyte # 58.6 10 Normal 17-77 Retic Hemoglobin Equivalent 35.9 pg Normal 24-36 Complete Blood Count 06/06/2021 [facility] [employer] Core Layer: [place] [address] [phone] WBC 8.5 x10*3/UL 4.1 - 10.9 2 RBC 3.46 x10*6/UL Low 4.20 - 6.30 Hemoglobin 10.5 g/dL Low 12.0 - 18.0 Hematocrit 30.9 % Low 37.0 - 51.0 MCV 89.1 fL 80.0 - 97.0 MCH 30.4 pg 26.0 - 32.0 MCHC 34.1 g/dL 31.0 - 38.0 RDW 13.2 % 11.6 - 13.7 PLT 311 x10*3/UL 140 - 440 MPV 6.9 FL Low 7.8 - 11.0 Lymph % 15.3 % 10.0 - 58.5 Mid % 4.2 % 1.7 - 9.3 Neut % 80.5 % 37.0 - 92.0 Lymph # 1.3 x10*3/UL 0.6 - 4.1 Mid # 0.3 x10*3/UL 0.1 - 0.6 Neut # 6.9 x10*3/UL 2.0 - 7.8 Comprehensive Chem Profile 06/06/2021 [facility] [employer] Layer: [place] [address] [phone] Glucose 92 mg/dL 74 - 99 3 BUN 10 mg/dL 7 - 18 Creatinine 0.9 mg/dL 0.6 - 1.3 Sodium 129 mEq/L Low 136 - 145 4 Potassium 4.4 mEq/L 3.5 - 5.1 Chloride 94 mEq/L Low 98 - 107 Carbon Dioxide 33 mEq/L High 21 - 32 Calcium 9.0 mg/dL 8.5 - 10.1 Alk. Phosphatase 76 mg/dL 46 - 116 Total Bilirubin 1.1 mg/dL High 0.2 - 1.0 Ast (Sgot) 36 U/L 15 - 37 Alt (SGPT) 29 U/L 12 - 78 Albumin 3.1 g/dL Low 3.4 - 5.0 Total Protein 6.3 g/dL Low 6.4 - 8.2 A/G Ratio 0.97 CALC Low 1.00 - 1.90 GFR >= 60 mL/min >60 GFR >= 60 mL/min >60 5 Lipid Profile 06/06/2021 [facility] [employer] Core Layer: [place] [address] [phone] Cholesterol 103 mg/dL Low 131 - 200 Triglycerides 39 mg/dL 30 - 150 HDL Cholesterol 81 mg/dL High 35 - 60 LDL (Calculated) INVALID CALC 50 - 159 Laboratory test finding 06/06/2021 [facility] [employer] Core Layer: [place] [address] [phone] Thyroid Stimulating Hormone 2.94 uIU/mL 0.3 6 - 3.74 Comprehensive Metabolic Profil 03/01/2021 [facility] [address] [place] [address] [phone] Glucose, Fasting 92 mg/dL Normal 70-100 Blood Urea Nitrogen 11 mg/dL Normal 7-18 Creatinine For GFR 0.76 mg/dL Normal 0.70-1.30 Glomerular Filtration Rate > 60.0 Normal >42 6 Sodium Level 128 mEq/L Low 136-145 Potassium Serum 3.8 mEq/L Normal 3.5-5.1 Chloride Level 93 mEq/L Low 98-107 Carbon Dioxide Level 29 mEq/L Normal 21-32 Anion Gap 6 mEq/L Low 8-16 Calcium Level 8.6 mg/dL Low 8.8-10.2 Ast/Sgot 41 U/L High 7-37 Alt/SGPT 32 U/L Normal 12-78 Alkaline Phosphatase 72 U/L Normal 45-117 Bilirubin,Total 1.7 mg/dL High 0.2-1.0 Total Protein 6.5 GM/DL Normal 6.4-8.2 Albumin 3.5 GM/DL Normal 3.2-5.2 Albumin/Globulin Ratio 1.2 Normal Lipid Panel 03/01/2021 [facility] nter [address] [place] [address] [phone] Triglycerides Level 58 mg/dL Normal <150 Cholesterol Level 108 mg/dL Normal <200 HDL Cholesterol 89 mg/dL Normal >40 LDL Cholesterol 7 mg/dL Normal <100 Non-HDL-C 19 mg/dL Normal Cholesterol Risk Ratio 1.213 Normal <5 CBC With Differential 03/01/2021 [facility] [address] [place] [address] [phone] White Blood Count 6.2 10 Normal 4.0-10.0 Red Blood Count 3.38 10 Low 4.30-6.10 Hemoglobin 10.7 g/dL Low 13.5-17.5 Hematocrit 31.6 % Low 42.0-52.0 Mean Corpuscular Volume 93.5 fl Normal 80.0-96.0 Mean Corpuscular Hemoglobin 31.7 pg Normal 27.0-33.0 Mean Corpuscular HGB Conc 33.9 g/dL Normal 32.0-36.5 Red Cell Distribution Width 12.7 % Normal 11.5-14.5 Platelet Count, Automated 265 10 Normal 150-450 Neutrophils % 62.7 % Normal 36.0-66.0 Lymph % 21.6 % Low 24.0-44.0 Archuleta % 12.1 % High 2.0-8.0 Eos % 2.3 % Normal 0.0-3.0 Baso % 0.8 % Normal 0.0-1.0 Immature Granulocyte % 0.5 % Normal 0-3.0 Nucleated Red Blood Cell % 0.0 % Normal 0-0 Neutrophils # 3.9 10 Normal 1.5-8.5 Lymph # 1.3 10 Low 1.5-5.0 Archuleta # 0.8 10 Normal 0.0-0.8 Eos # 0.1 10 Normal 0.0-0.5 Baso # 0.1 10 Normal 0.0-0.2 Laboratory test finding 03/01/2021 [facility] [address] [place] [address] [phone] Thyroid Stimulating Hormone 1.950 uIU/ML Normal 0. 358-3.740 1 Units are mL/min/1.73 m2 Chronic Kidney Disease Staging per NKF: Stage I & II GFR >=60 Normal to Mildly Decreased Stage III GFR 30-59 Moderately Decreased Stage IV GFR 15-29 Severely Decreased Stage V GFR <15 Very Little GFR Left ESRD GFR <15 on SENIOR ESCROW OFFICER 2 NOTE: CBC VERIFIED 3 100-125 mg/dL PRE-DIABET ES/FASTING >126 mg/dL DIABETES/FASTING 4 NOTE: LYTES,ALBUMIN,T.PROTEIN VERIFIED 5 CHRONIC KIDNEY DISEASE STAGI NG PER NKF STAGE I & II GFR >= 60 NORMAL TO MILDLY DECREASED STAGE III GFR 30-59 MODERATELY DECREASED STAGE IV GFR 15-29 SEVERELY DECREASED STAGE V GFR <15 VERY LITTLE GFR LEFT ESRD GFR <15 ON SENIOR ESCROW OFFICER 6 Units are mL/min/1.73 m2 Chronic Kidney Disease Staging per NKF: Stage I & II GFR >=60 Normal to Mildly Decreased Stage III GFR 30-59 Moderately Decreased Stage IV GFR 15-29 Severely Decreased Stage V GFR <15 Very Little GFR Left ESRD GFR <15 on SENIOR ESCROW OFFICER Procedures Date Code Description Status 06/06/2021 25741 Office/Outpatient Established Mo d MDM 30-39 Min Completed 09/16/2018 93881553 Colonoscopy Completed 03/24/2013 [id number] Colonoscopy Completed Medical Devices Description No Information Available Encounters Type Date Location Provider Dx Diagnosis Office Visit 06/06/2021 8:40a [facility] MD I25.10 Athscl heart disease of [place] coronary artery w/o ang pctrs Z95.5 Presence of coronary angiopl asty implant and graft 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 J44.9 Chronic obstructive pulmonar y disease, unspecified E78.00 Pure hypercholesterolemia, u nspecified I87.2 Venous insufficiency (chroni c) (peripheral) I10 Essential (primary) hyperten judy K21.9 Gastro-esophageal reflux dis ease without esophagitis R13.10 Dysphagia, unspecified F10.10 Alcohol abuse, uncomplicated 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 Z13.89 Encounter for screening for other disorder Assessments Date Code Description Provider 06/06/2021 I25.10 Atherosclerotic heart disease of [place] coronary artery with Christopher Mensah MD 06/06/2021 Z95.5 Presence of coronary angioplasty implant and graft Christopher Mensah MD 06/06/2021 Z79.82 intermediate (current) use of aspir in Christopher Mensah MD 06/06/2021 J44.9 Chronic obstructive pulmonary di sease, unspecified Christopher Mensah MD 06/06/2021 E78.00 Pure hypercholesterolemia, unspe cified Christopher Mensah MD 06/06/2021 I87.2 Venous insufficiency (chronic) ( peripheral) Christopher Mensah MD 06/06/2021 I10 Essential (primary) hypertension Christopher Mensah MD 06/06/2021 K21.9 Gastro-esophageal reflux disease without esophagitis Christopher Mensah MD 06/06/2021 R13.10 Dysphagia, unspecified Christopher Mensah MD 06/06/2021 F10.10 Alcohol abuse, uncomplicated Col ronjun Mensah MD 06/06/2021 I65.23 Occlusion and stenosis of bilate ral carotid arteries Christopher Mensah MD 06/06/2021 Z13.89 Encounter for screening for othe r disorder Christopher Mensah MD Plan of Treatment Future Appointment(s):* 11/05/2021 11:00 am - Christopher Mensah MD at [facility] 09/12/2020 - Christopher Mensah MD* I25.10 Atherosclerotic heart disease of [place] coronary artery with * Z95.5 Presence of coronary angioplasty implant and graft * Z79.82 moving worker (current) use of aspirin * J44.9 Chronic obstructive pulmonary disease, unspecified * E78.00 Pure hypercholesterolemia, unspecified * I87.2 Venous insufficiency (chronic) (peripheral) * I10 Essential (primary) hypertension* Comments:* Hypertension at [facility]-8 guidelines * K21.9 Gastro-esophageal reflux disease without esophagitis Functional Status Description No Information Available Mental Status Description No Information Available Referrals Refer to Reason for Referral Status Appt Date Elbert Mckeon JR, MD CONSULT FOR SCREENING EGD DX: SOLID F OOD DYSPHAGIA Patient Notified 06/19/2021 [facility] [address] [address] [phone]
--- OUTSIDE RECORDS SUMMARY | 2021-09-12 08:53 | CCD | Continuity of Care Document ---
Author Author Joselito ALVARENGA MD Organization Unknown Address [facility] [place] [address] Phone [phone] Care Team Providers Care Accountant Systems Name Role Phone Drew Villalobos MD AUTM [phone] Rodrigo Schilling DO AUTM [phone] Anisha Robles AUTM [phone] Christopher Mensah JR, MD AUTM [phone] Clarisa Berry MD AUTM [phone] Elbert Mckeon MD AUTM [phone] Lucio Daniel MD AUTM [phone] Problems Active Problems Provider Date Dyspnea Mika [...] Onse t: 06/07/2018 Atherosclerotic heart disease of [place] coronary arter y without angina pectoris JAYDA [...] ek Exercise Type/Frequency General 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[employer] Exercise Limitations Shortness Of Breath Allergies, Adverse [...] by mouth every day Makenna DINH MD, [facility] 020 Aspirin 81mg Chewtabs 2 by [...] Result H/L Range Note Renal Profile 07/29/2021 [facility] nter [phone] Glucose, Fasting 102 mg/dL High 70-100 Blood [...] GM/DL Low 3.2-5.2 Laboratory test finding 07/29/2021 [facility] [phone] NT-Pro BNP 345 pg/mL Normal <450 Laboratory test finding 07/29/2021 [facility] [phone] Erythrocyte Sedimentation Rate 8 mm/hr Normal 0 -20 Magnesium Level 1.9 mg/dL Normal 1.8-2.4 Retic (Reticulocyte Count) 07/29/2021 [facility] [phone] Reticulocyte % 1.6 % High 0.5-1.5 Reticulocyte [...] Absolute Neutrophils Auto CNT 5.3 CMP 06/17/2021 [facility] [address] [place] [id number] [phone] Albumin Serum/Plasma 3.1 Alt - SGPT 29 Calcium Ser/Plasma Mass/Vol 9.0 Carbon Dioxide Ser/Plasm 33 Chloride Serum/Plasma 94 Alkaline Phosphatase 76 Potassium 4.4 Protein Total 6.3 Sodium 129 Ast - Sgot 36 BUN - Urea Nitrogen 10 Glucose 92 74-99 Creatinine For GFR 0.9 Lipid Profile/Cardiac Risk Pro 06/17/2021 [facility] [address] [place] [address] [phone] Triglycerides 39 30-150 Cholesterol 103 Low 131-200 HDL 81 High 35-60 LDL Cholesterol -- Low 50-159 Chol/HDL Ratio -- CBC without Differential 06/17/2021 [facility] [address] [place], [place] [id number] [phone] White Blood Count 8.5 4.1-10.9 Red Blood [...] Little GFR Left ESRD GFR <15 on HAND BINDER CUTTER Procedures Date Code Description Status 07/15/2021 59360 Office/Outpatient Established Mo d MDM 30-39 Min Completed 07/15/2021 58608 ECG 12-Lead Completed 07/02/2021 31827 Chronic Care MGMT 20 Mins Clinical Staff Time Per Calendar Month Completed 05/28/2021 77789 Chronic Care MGMT 20 Mins Clinical Staff Time Per Calendar Month Completed 05/28/2021 17394 Chronic Care Management Services Ea Addl 20 Min Completed 04/24/2021 43803 Chronic Care MGMT 20 Mins Clinical Staff Time Per Calendar Month Completed 02/04/2021 36026 Chronic Care MGMT 20 Mins Clinical Staff [...] MD 07/30/2021 I25.10 Atherosclerotic heart disease of [place] coronary artery with Mika Alvarenga MD 07/30/2021 I11.0 Hypertensive heart disease with heart failure Mika Alvarenga MD 07/30/2021 I27.81 Cor pulmonale (chronic) Mika Alvarenga MD 07/15/2021 R06.02 Shortness of breath Mika mccarthy MD 07/15/2021 R94.31 Abnormal electrocardiogram [ECG] [EKG] Mika Alvarenga MD 07/15/2021 I25.10 Atherosclerotic heart disease of [place] coronary artery with Mika Alvarenga MD 07/15/2021 I11.9 Hypertensive heart disease witho ut heart failure Mika Alvarenga MD 07/15/2021 I27.81 Cor pulmonale (chronic) Mika Alvarenga MD 07/02/2021 I25.10 Atherosclerotic heart disease of [place] coronary artery with Mika Alvarenga MD 07/02/2021 [...] Alvarenga MD 02/04/2021 E78.5 Hyperlipidemia, unspecified Lele Alvraenga MD Plan of Treatment 07/30/2021 - Mika Alvarenga MD* I50.32 Chronic diastolic (congestive) heart failure* New Xrays:* US Echocardiogram Transthoracic W Doppler And Color Flow, Ordered: 07/30/21 * Recommendations:* Have requested a follow-up echocardiogram/Doppler study to reassess left ventricular size and function compared with last year. * I25.10 Atherosclerotic heart disease of [place] coronary artery with * I11.0 Hypertensive heart disease with heart failure * I27.81 Cor pulmonale (chronic) * All * Comments:* I will ensure that the aforementioned test findings are reported to you along with any further recommendations. Thank you for allowing me to participate in the care of your patient. Best regards. Functional Status Functional Condition Comment Date Status Independent with all ADL's Activ e Requires assistance with ambulating using cane Active Mental Status Description No Information Available Referrals Description No Information Available
--- OUTSIDE RECORDS SUMMARY | 2021-09-12 08:53 | CCD | Continuity of Care Document ---
Author Author Joselito ALVARENGA MD Organization Unknown Address [place] [address] Phone [phone] Care Team Providers Care Body Designer Name Role Phone Drew Villalobos MD AUTM [phone] Rodrigo Schilling DO AUTM [phone] Anisha Robles AUTM [phone] Christopher Mensah JR, MD AUTM [phone] Clarisa Berry MD AUTM [phone] Elbert Mckeon MD AUTM [phone] Lucio Daniel MD AUTM [phone] Problems Active Problems Provider Date Dyspnea Mika [...] Onse t: 06/07/2018 Atherosclerotic heart disease of [place] coronary arter y without angina pectoris JAYDA [...] ek Exercise Type/Frequency General 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[employer] Exercise Limitations Shortness Of Breath Allergies, Adverse [...] by mouth every day Makenna DINH MD, [facility] 020 Aspirin 81mg Chewtabs 2 by [...] 07/29/2021 [facility] nter [phone] Glucose, Fasting 102 mg/dL High 70-100 Blood [...] GM/DL Low 3.2-5.2 Laboratory test finding 07/29/2021 [facility] [phone] NT-Pro BNP 345 pg/mL Normal <450 Laboratory test finding 07/29/2021 [facility] [phone] Erythrocyte Sedimentation Rate 8 mm/hr Normal 0 -20 Magnesium Level 1.9 mg/dL Normal 1.8-2.4 Retic (Reticulocyte Count) 07/29/2021 [facility] [phone] Reticulocyte % 1.6 % High 0.5-1.5 Reticulocyte [...] Absolute Neutrophils Auto CNT 5.3 CMP 06/17/2021 [facility] [address] [place], [place] [id number] [phone] Albumin Serum/Plasma 3.1 Alt - SGPT 29 Calcium Ser/Plasma Mass/Vol 9.0 Carbon Dioxide Ser/Plasm 33 Chloride Serum/Plasma 94 Alkaline Phosphatase 76 Potassium 4.4 Protein Total 6.3 Sodium 129 Ast - Sgot 36 BUN - Urea Nitrogen 10 Glucose 92 74-99 Creatinine For GFR 0.9 Lipid Profile/Cardiac Risk Pro 06/17/2021 [facility] [address] [place] [address] [phone] Triglycerides 39 30-150 Cholesterol 103 Low 131-200 HDL 81 High 35-60 LDL Cholesterol -- Low 50-159 Chol/HDL Ratio -- CBC without Differential 06/17/2021 [facility] [address] [place], [place] [id number] [phone] White Blood Count 8.5 4.1-10.9 Red Blood [...] Little GFR Left ESRD GFR <15 on PLASTIC SURGERY NURSE Procedures Date Code Description Status 07/30/2021 83945 Office/Outpatient Established Mo d MDM 30-39 Min Completed 07/15/2021 10376 Office/Outpatient Established Mo d MDM 30-39 Min Completed 07/15/2021 18486 ECG 12-Lead Completed 07/02/2021 02534 Chronic Care MGMT 20 Mins Clinical Staff Time Per Calendar Month Completed 05/28/2021 44800 Chronic Care MGMT 20 Mins Clinical Staff Time Per Calendar Month Completed 05/28/2021 43940 Chronic Care Management Services Ea Addl 20 Min Completed 04/24/2021 64893 Chronic Care MGMT 20 Mins Clinical Staff Time Per Calendar Month Completed 02/04/2021 89290 Chronic Care MGMT 20 Mins Clinical Staff [...] ang pctrs I11.9 [facility] heart [facility] I27.81 Cor pulmonale (chronic) Office Visit 07/02/2021 1:01p Main Office Mika Alvarenga MD I25.10 Athscl heart disease of [place] coronary artery w/o ang pctrs I11.9 Hypertensive heart disease w [facility] heart failure E78.5 Hyperlipidemia, unspecified Office Visit [...] MD 07/30/2021 I25.10 Atherosclerotic heart disease of [place] coronary artery with Mika Alvarenga MD 07/30/2021 I11.0 Hypertensive heart disease with heart failure Mika Alvarenga MD 07/30/2021 I27.81 Cor pulmonale (chronic) Mika Alvarenga MD 07/15/2021 R06.02 Shortness of breath Mika mccarthy MD 07/15/2021 R94.31 Abnormal electrocardiogram [ECG] [EKG] Mika Alvarenga MD 07/15/2021 I25.10 Atherosclerotic heart disease of [place] coronary artery with Mika Alvarenga MD 07/15/2021 I11.9 Hypertensive heart disease witho ut heart failure Mika Alvarenga MD 07/15/2021 I27.81 Cor pulmonale (chronic) Mika Alvarenga MD 07/02/2021 I25.10 Atherosclerotic heart disease of [place] coronary artery with Mika Alvarenga MD 07/02/2021 [...] spironolactone. * I25.10 Atherosclerotic heart disease of [place] coronary artery with* Recommendations:* Post LAD PTCA: [...]
--- OUTSIDE RECORDS SUMMARY | 2021-09-12 08:53 | CCD | Continuity of Care Document ---
Author Author Joselito ALVARENGA MD Organization Unknown Address [place] [address] Phone [phone] Care Team Providers Care Quarter Seamer Name Role Phone Drew Villalobos MD AUTM [phone] Rodrigo Schilling DO AUTM [phone] Anisha Robles AUTM [phone] Christopher Mensah JR, MD AUTM Clarisa Berry MD AUTM [phone] Elbert Mckeon MD AUTM [phone] Lucio Daniel MD AUTM [phone] Problems Active Problems Provider Date Dyspnea Mika [...] Onse t: 06/07/2018 Atherosclerotic heart disease of [place] coronary arter y without angina pectoris JAYDA [...] ek Exercise Type/Frequency General 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[employer] Exercise Limitations Shortness Of Breath Allergies, Adverse [...] by mouth every day Makenna DINH MD, [facility] 020 Aspirin 81mg Chewtabs 2 by mouth [...] 5'11" BMI (Body Mass Index) 14.9 kg/m2 07/15/2021 10:34am Weight 107.00 lb Home Weight [...] Result H/L Range Note Renal Profile 07/29/2021 [facility] nter [phone] Glucose, Fasting 102 mg/dL High 70-100 Blood [...] GM/DL Low 3.2-5.2 Laboratory test finding 07/29/2021 [facility] [phone] NT-Pro BNP 345 pg/mL Normal <450 Laboratory test finding 07/29/2021 [facility] [phone] Erythrocyte Sedimentation Rate 8 mm/hr Normal 0 -20 Magnesium Level 1.9 mg/dL Normal 1.8-2.4 Retic (Reticulocyte Count) 07/29/2021 [facility] [phone] Reticulocyte % 1.6 % High 0.5-1.5 Reticulocyte [...] Absolute Neutrophils Auto CNT 5.3 CMP 06/17/2021 [facility] [address] [place], [place] [id number] [phone] Albumin Serum/Plasma 3.1 Alt - SGPT 29 Calcium Ser/Plasma Mass/Vol 9.0 Carbon Dioxide Ser/Plasm 33 Chloride Serum/Plasma 94 Alkaline Phosphatase 76 Potassium 4.4 Protein Total 6.3 Sodium 129 Ast - Sgot 36 BUN - Urea Nitrogen 10 Glucose 92 74-99 Creatinine For GFR 0.9 Lipid Profile/Cardiac Risk Pro 06/17/2021 [facility] [address] [place], [place] [id number] [phone] Triglycerides 39 30-150 Cholesterol 103 Low 131-200 HDL 81 High 35-60 LDL Cholesterol -- Low 50-159 Chol/HDL Ratio -- CBC without Differential 06/17/2021 [facility] [address] [place] [address] [phone] White Blood Count 8.5 4.1-10.9 Red Blood [...] Little GFR Left ESRD GFR <15 on [facility]ILY [facility]ACT[facility] DO[facility] Procedures Date Code Description Status 07/15/2021 85774 Office/Outpatient Established Mo d MDM 30-39 Min Completed 07/15/2021 95849 ECG 12-Lead Completed 07/02/2021 49254 Chronic Care MGMT 20 Mins Clinical Staff Time Per Calendar Month Completed 05/28/2021 67825 Chronic Care MGMT 20 Mins Clinical Staff Time Per Calendar Month Completed 05/28/2021 52115 Chronic Care Management Services Ea Addl 20 Min Completed 04/24/2021 46424 Chronic Care MGMT 20 Mins Clinical Staff Time Per Calendar Month Completed 02/04/2021 94980 Chronic Care MGMT 20 Mins Clinical Staff [...] MD 07/30/2021 I25.10 Atherosclerotic heart disease of [place] coronary artery with Mika Alvarenga MD 07/30/2021 I11.0 Hypertensive heart disease with heart failure Mika Alvarenga MD 07/30/2021 I27.81 Cor pulmonale (chronic) Mika Alvarenga MD 07/15/2021 R06.02 Shortness of breath Mika mccarthy MD 07/15/2021 R94.31 Abnormal electrocardiogram [ECG] [EKG] Miak Alvarenga MD 07/15/2021 I25.10 Atherosclerotic heart disease of [place] coronary artery with Mika Alvarenga MD 07/15/2021 I11.9 Hypertensive heart disease witho ut heart failure Mika Alvarenga MD 07/15/2021 I27.81 Cor pulmonale (chronic) Mika Alvarenga MD 07/02/2021 I25.10 Atherosclerotic heart disease of [place] coronary artery with Mika Alvarenga MD 07/02/2021 [...] unspecified Lele Alvarenga MD Plan of Treatment 07/30/2021 - Mika Alvarenga MD* I50.32 Chronic diastolic (congestive) heart failure* New Xrays:* US Echocardiogram Transthoracic W Doppler And Color Flow, Ordered: 07/30/21 * Recommendations:* Have requested a follow-up echocardiogram/Doppler study to reassess left ventricular size and function compared with last year. * I25.10 Atherosclerotic heart disease of [place] coronary artery with * I11.0 Hypertensive heart [...]
--- OUTSIDE RECORDS SUMMARY | 2021-09-12 08:53 | CCD | Continuity of Care Document ---
Author Author Joselito ALVARENGA MD Organization Unknown Address [facility] [place] [address] Phone [phone] Care Team Providers Care Evp Head Of [employer] Experience Strategy Name Role Phone Drew Villalobos MD AUTM [phone] Rodrigo Schilling DO AUTM [phone] Anisha Robles AUTM [phone] Christopher Mensah JR, MD AUTM [phone] Clarisa Berry MD AUTM [phone] Elbert Mckeon MD AUTM [phone] Lucio Daniel MD AUTM [phone] Problems Active Problems Provider Date Dyspnea Mika [...] Onse t: 06/07/2018 Atherosclerotic heart disease of [place] coronary arter y without angina pectoris JAYDA [...] ek Exercise Type/Frequency General 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[employer] Exercise Limitations Shortness Of Breath Allergies, Adverse [...] by mouth every day Makenna DINH MD, [facility] 020 Aspirin 81mg Chewtabs 2 by mouth [...] Result H/L Range Note Renal Profile 07/29/2021 [facility] nter [phone] Glucose, Fasting 102 mg/dL High 70-100 Blood [...] GM/DL Low 3.2-5.2 Laboratory test finding 07/29/2021 [facility] [phone] NT-Pro BNP 345 pg/mL Normal <450 Laboratory test finding 07/29/2021 [facility] [phone] Erythrocyte Sedimentation Rate 8 mm/hr Normal 0 -20 Magnesium Level 1.9 mg/dL Normal 1.8-2.4 Retic (Reticulocyte Count) 07/29/2021 [facility] [phone] Reticulocyte % 1.6 % High 0.5-1.5 Reticulocyte [...] Absolute Neutrophils Auto CNT 5.3 CMP 06/17/2021 [facility] [address] [place], [place] [address] [phone] Albumin Serum/Plasma 3.1 Alt - SGPT 29 Calcium Ser/Plasma Mass/Vol 9.0 Carbon Dioxide Ser/Plasm 33 Chloride Serum/Plasma 94 Alkaline Phosphatase 76 Potassium 4.4 Protein Total 6.3 Sodium 129 Ast - Sgot 36 BUN - Urea Nitrogen 10 Glucose 92 74-99 Creatinine For GFR 0.9 Lipid Profile/Cardiac Risk Pro 06/17/2021 [facility] [address] [place] [address] [phone] Triglycerides 39 30-150 Cholesterol 103 Low 131-200 HDL 81 High 35-60 LDL Cholesterol -- Low 50-159 Chol/HDL Ratio -- CBC without Differential 06/17/2021 [facility] [address] [place], [place] [address] [phone] White Blood Count 8.5 4.1-10.9 Red Blood [...] Little GFR Left ESRD GFR <15 on [facility] Procedures Date Code Description Status 07/30/2021 91469 Office/Outpatient Established Mo d MDM 30-39 Min Completed 07/15/2021 44159 Office/Outpatient Established Mo d MDM 30-39 Min Completed 07/15/2021 29481 ECG 12-Lead Completed 07/02/2021 65513 Chronic Care MGMT 20 Mins Clinical Staff Time Per Calendar Month Completed 05/28/2021 34881 Chronic Care MGMT 20 Mins Clinical Staff Time Per Calendar Month Completed 05/28/2021 94980 Chronic Care Management Services Ea Addl 20 Min Completed 04/24/2021 50489 Chronic Care MGMT 20 Mins Clinical Staff Time Per Calendar Month Completed 02/04/2021 41964 Chronic Care MGMT 20 Mins Clinical Staff [...] MD 07/30/2021 I25.10 Atherosclerotic heart disease of [place] coronary artery with Mika Alvarenga MD 07/30/2021 I11.0 Hypertensive heart disease with heart failure Mika Alvarenga MD 07/30/2021 I27.81 Cor pulmonale (chronic) Mika Alvarenga MD 07/15/2021 R06.02 Shortness of breath Mika mccarthy MD 07/15/2021 R94.31 Abnormal electrocardiogram [ECG] [EKG] Mika Alvarenga MD 07/15/2021 I25.10 Atherosclerotic heart disease of [place] coronary artery with Mika Alvarenga MD 07/15/2021 I11.9 Hypertensive heart disease witho ut heart failure Mika Alvarenga MD 07/15/2021 I27.81 Cor pulmonale (chronic) Mika Alvarenga MD 07/02/2021 I25.10 Atherosclerotic heart disease of [place] coronary artery with Mika Alvarenga MD 07/02/2021 [...] spironolactone. * I25.10 Atherosclerotic heart disease of [place] coronary artery with* Recommendations:* Post LAD PTCA: [...]
--- OUTSIDE RECORDS SUMMARY | 2021-09-12 08:53 | CCD | Continuity of Care Document ---
Author Author Joselito ALVARENGA MD Organization Unknown Address [facility] [place] [address] Phone [phone] Care Team Providers Care Vehicle Trimmer Name Role Phone Drew Villalobos MD AUTM [phone] Rodrigo Schilling DO AUTM [phone] Anisha Robles AUTM [phone] Christopher Mensah JR, MD AUTM Clarisa Berry MD AUTM [phone] Elbert Mckeon MD AUTM [phone] Lucio Daniel MD AUTM [phone] Problems Active Problems Provider Date Dyspnea Mika [...] Onse t: 06/07/2018 Atherosclerotic heart disease of [place] coronary arter y without angina pectoris JAYDA [...] ek Exercise Type/Frequency General 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[employer] Exercise Limitations Shortness Of Breath Allergies, Adverse [...] day Makenna DINH MD, [facility] 020 Aspirin 81mg Chewtabs 2 by [...] Result H/L Range Note Renal Profile 07/29/2021 [facility] nter [phone] Glucose, Fasting 102 mg/dL High 70-100 Blood [...] GM/DL Low 3.2-5.2 Laboratory test finding 07/29/2021 [facility] [phone] NT-Pro BNP 345 pg/mL Normal <450 Laboratory test finding 07/29/2021 [facility] [phone] Erythrocyte Sedimentation Rate 8 mm/hr Normal 0 -20 Magnesium Level 1.9 mg/dL Normal 1.8-2.4 Retic (Reticulocyte Count) 07/29/2021 [facility] [phone] Reticulocyte % 1.6 % High 0.5-1.5 Reticulocyte [...] Absolute Neutrophils Auto CNT 5.3 CMP 06/17/2021 [facility] [address] [place], [place] [id number] [phone] Albumin Serum/Plasma 3.1 Alt - SGPT 29 Calcium Ser/Plasma Mass/Vol 9.0 Carbon Dioxide Ser/Plasm 33 Chloride Serum/Plasma 94 Alkaline Phosphatase 76 Potassium 4.4 Protein Total 6.3 Sodium 129 Ast - Sgot 36 BUN - Urea Nitrogen 10 Glucose 92 74-99 Creatinine For GFR 0.9 Lipid Profile/Cardiac Risk Pro 06/17/2021 [facility] [address] [place], [place] [address] [phone] Triglycerides 39 30-150 Cholesterol 103 Low 131-200 HDL 81 High 35-60 LDL Cholesterol -- Low 50-159 Chol/HDL Ratio -- CBC without Differential 06/17/2021 [facility] [address] [place] [address] [phone] White Blood Count 8.5 4.1-10.9 Red Blood [...] Little GFR Left ESRD GFR <15 on [facility] Procedures Date Code Description Status 07/15/2021 83584 Office/Outpatient Established Mo d MDM 30-39 Min Completed 07/15/2021 18191 ECG 12-Lead Completed 07/02/2021 18280 Chronic Care MGMT 20 Mins Clinical Staff Time Per Calendar Month Completed 05/28/2021 27572 Chronic Care MGMT 20 Mins Clinical Staff Time Per Calendar Month Completed 05/28/2021 74738 Chronic Care Management Services Ea Addl 20 Min Completed 04/24/2021 35434 Chronic Care MGMT 20 Mins Clinical Staff Time Per Calendar Month Completed 02/04/2021 33794 Chronic Care MGMT 20 Mins Clinical Staff [...] MD 07/30/2021 I25.10 Atherosclerotic heart disease of [place] coronary artery with Mika Alvarenga MD 07/30/2021 I11.0 Hypertensive heart disease with heart failure Mika Alvarenga MD 07/30/2021 I27.81 Cor pulmonale (chronic) Mika Alvarenga MD 07/15/2021 R06.02 Shortness of breath Mika mccarthy MD 07/15/2021 R94.31 Abnormal electrocardiogram [ECG] [EKG] Mika Alvarenga MD 07/15/2021 I25.10 Atherosclerotic heart disease of [place] coronary artery with Mika Alvarenga MD 07/15/2021 I11.9 Hypertensive heart disease witho ut heart failure Mika Alvarenga MD 07/15/2021 I27.81 Cor pulmonale (chronic) Mika Alvarenga MD 07/02/2021 I25.10 Atherosclerotic heart disease of [place] coronary artery with Mika Alvarenga MD 07/02/2021 I11.9 Hypertensive heart disease witho ut heart failure Mika Alvarenga MD 07/02/2021 E78.5 Hyperlipidemia, unspecified Lele Alvarenga MD 05/28/2021 I11.9 Hypertensive heart disease witho ut heart failure Mika Alvarenga MD 05/28/2021 E78.5 Hyperlipidemia, unspecified eLle Alvarenga MD 04/24/2021 I11.9 Hypertensive heart disease witho ut heart failure Mika Alvarenga MD 04/24/2021 E78.5 Hyperlipidemia, unspecified Lele Alvarenga MD 02/04/2021 I11.9 Hypertensive heart disease witho ut heart failure Miak Alvarenga MD 02/04/2021 E78.5 Hyperlipidemia, unspecified Lele [...] year. * I25.10 Atherosclerotic heart disease of [place] coronary artery with * I11.0 Hypertensive heart [...]
--- OUTSIDE RECORDS SUMMARY | 2021-09-12 08:54 | CCD | Continuity of Care Document ---
Author Author Joselito ALVARNEGA MD Organization Unknown Address [place] [address] Phone [phone] Care Team Providers Care Electrical Unit Rebuilder Name Role Phone Drew Villalobos MD AUTM [phone] Rodrigo Schilling DO AUTM [phone] Anisha Robles AUTM [phone] Makenna DINH MD, Christopher Steele AUTM Clarisa Berry MD AUTM [phone] Problems Active Problems Provider Date Dyspnea Mika [...] Onse t: 06/07/2018 Atherosclerotic heart disease of [place] coronary arter y without angina pectoris JAYDA Conner Onset: 06/21/2018 Chronic pulmonary heart disease Mika Alvarenga MD [...] ek Exercise Type/Frequency General 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[employer] Exercise Limitations Shortness Of Breath Allergies, Adverse Reactions, Alerts Description No Known Drug Allergies Medications Active Medications SIG Qnty Indications Ordering Provide r Date [employer] Working Hands Cream as directed as needed Unknown 11/18/2020 Chlorthalidone 25mg Tablets 1/2 by mouth mondays and only 12tabs I11.9 Mika Alvarenga MD Spironolactone 25mg Tablets 1/2 by mouth every day 45tabs I11.9 Mika Alvarenga MD 07/25/[address] 1 by mouth every day Makenna DINH MD, [facility] 020 Aspirin 81mg Chewtabs 2 by [...] Available Vital Signs Date Vital Result Comment 11/19/2020 10:43am Weight 116.00 lb Home Weight [...] O2 Saturation Level with Exercise 93 % 08/09/2020 11:15am Weight 113.00 lb Home Weight 110lb home weight Height 71 inches 5'11" BMI (Body Mass Index) 15.8 kg/m2 Heart Rate 68 /min regular Respiratory Rate 16 /min BP Systolic Sitting 116 mmHg Medium cuff, Ra BP Diastolic Sitting 56 mmHg Medium cuff, Ra BP Systolic Lying Down 134 mmHg BP Diastolic Lying Down 60 mmHg Results Description No Information Available Procedures Date Code Description Status 05/28/2021 22357 Chronic Care MGMT 20 Mins Clinical Staff Time Per Calendar Month Completed 05/28/2021 46819 Chronic Care Management Services Ea Addl 20 Min Completed 04/24/2021 08563 Chronic Care MGMT 20 Mins Clinical Staff Time Per Calendar Month Completed 02/04/2021 96607 Chronic Care MGMT 20 Mins Clinical Staff Time Per Calendar Month Completed Medical Devices Description No Information Available Encounters Type Date Location Provider Dx Diagnosis Office Visit 05/28/2021 10:51a Main Office Mika Alvarenga MD I11.9 Hypertensive heart disease without heart failure E78.5 Hyperlipidemia, unspecified Office Visit 04/24/2021 8:37a Main Office Mika Alvarenga MD I11.9 Hypertensive heart disease without heart failure E78.5 Hyperlipidemia, unspecified Office Visit 02/04/2021 2:15p Main Office Mika Alvarenga MD I11.9 Hypertensive heart disease without heart failure E78.5 Hyperlipidemia, unspecified Assessments Date Code Description Provider 05/28/2021 I11.9 Hypertensive heart disease witho ut heart failure Mika Alvarenga MD 05/28/2021 E78.5 Hyperlipidemia, unspecified Lele Alvarenga MD 04/24/2021 I11.9 Hypertensive heart disease witho ut heart failure Mika Alvarenga MD 04/24/2021 E78.5 Hyperlipidemia, unspecified Lele Alvarenga MD 02/04/2021 I11.9 Hypertensive heart disease witho id heart failure Mika Alvarenga MD 02/04/2021 E78.5 Hyperlipidemia, unspecified Lele Alvarenga MD Plan of Treatment Future Appointment(s):* 07/15/2021 10:30 am - Mika Alvarenga MD at Main Office 11/19/2020 - Mika Alvarenga MD* R06.02 Shortness of breath* Recommendations:* Stable effort dyspnea with no other symptoms or signs of congestion. 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 Recent echocardiogram did show an element of LV diastolic dysfunction but current estimated mean left atrial pressure was within normal limits. Recent blood work shows normal proBNP levels. Have encouraged his regular activity in order to maintain physical conditioning. I am happy he is keen to get the COVID- vaccination. * R94.31 Abnormal electrocardiogram [ECG] [EKG]* Recommendations:* Observed atrial ectopic activity with occasional pulse irregularity but no symptomatic arrhythmia. Otherwise no change from last fall. Have encouraged minimizing intake of of caffeinated beverages, alcohol, nicotine, [id number] decon gestants etc. * I25.10 Atherosclerotic heart disease of [place] coronary artery with* Recommendations:* Post LAD PTCA: With his current level of activity has remained free of symptomatic myocardial ischemia. Recent pharmacological stress heart scan showed significant improvement from 2 years earlier. EKG as mentioned above. Would encourage his continued low fat low cholesterol diet and regular exercise. No change would be suggested to his current protective combination bisoprolol, losartan, atorvastatin, and aspirin. Requested he contact us should he develop effort related chest, jaw, or arm discomforts. * I11.9 Hypertensive heart disease without heart failure* Recommendations:* Compensated as mentioned above. Present blood pressure would be considered well controlled. He is reported unsteadiness I suspect is related to his age and dysfunction of proprioception versus impaired cerebellar function. Have cautioned him regarding his alcohol intake and risk of provoking atrial fibrillation with possible stroke, in light of his underlying hypertensive heart disease. Recent blood work confirms electrolyte balance with normal renal function. No change would be advised to his current bisoprolol, losartan, chlorthalidone, and spironolactone combination therapy. * I27.81 Cor pulmonale (chronic)* Recommendations:* Recent echocardiogram shows a degree of pulmonary hypertension but has no signs of right heart failure. His sleep disturbance is related to nocturia. No special measures would be deemed necessary. Remains on combination bronchodilators. A follow-up echocardiogram/Doppler study to reassess pulmonary arterial pressure will be considered in one year. * All * Comments:* Thank you for allowing me to participate in the care of your patient. Best regards. * Follow up:* Followup appointment with EKG in 6 months. We would be pleased to reassess the patient at any time. Functional Status Functional Condition Comment Date Status Independent with all ADL's Activ e Requires assistance with ambulating using cane Active Mental Status Description No Information Available Referrals Description No Information Available
--- OUTSIDE RECORDS SUMMARY | 2021-09-12 08:54 | CCD | Continuity of Care Document ---
Author Author Joselito [employer] Organization Unknown Address [address] [place] [address], [place] [address] Phone [phone] Care Team Providers Care Alumni Coordinator Name Role Phone Drew Villalobos MD AUTM [phone] Rodrigo Schilling DO AUTM [phone] Anisha Robles AUTM [phone] Makenna DINH MD, Christopher Steele AUTM Clarisa Berry MD AUTM [phone] Problems Active Problems Provider Date Dyspnea Mika [...] Onset: 05/20/2018 Cardiovascular stress test abnormal Mika lAvarenga MD Onse t: 06/07/2018 Atherosclerotic heart disease of [place] coronary arter y without angina pectoris JAYDA [...] ek Exercise Type/Frequency General 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[employer] Exercise Limitations Shortness Of Breath Allergies, Adverse [...] by mouth every day Makenna DINH MD, [facility] 020 Aspirin 81mg Chewtabs 2 by [...] BP Diastolic Lying Down 60 mmHg Results Test Acquired Date Facility Test Result H/L Range Note CMP 06/17/2021 [facility] [address] [place], [place] [address] [phone] Albumin Serum/Plasma 3.1 Alt - SGPT 29 Calcium Ser/Plasma Mass/Vol 9.0 Carbon Dioxide Ser/Plasm 33 Chloride Serum/Plasma 94 Alkaline Phosphatase 76 Potassium 4.4 Protein Total 6.3 Sodium 129 Ast - Sgot 36 BUN - Urea Nitrogen 10 Glucose 92 74-99 Creatinine For GFR 0.9 Lipid Profile/Cardiac Risk Pro 06/17/2021 [facility] [address] [place], [place] [address] [phone] Triglycerides 39 30-150 Cholesterol 103 Low 131-200 HDL 81 High 35-60 LDL Cholesterol -- Low 50-159 Chol/HDL Ratio -- CBC without Differential 06/17/2021 [facility] [address] [place], [place] [address] [phone] White Blood Count 8.5 4.1-10.9 Red Blood Count 3.46 Low 4.2-6.30 Platelets 311 140-440 Hemoglobin 10.5 Low 12.0-18.0 Hematocrit 30.9 37.0-51.0 Procedures Date Code Description Status 05/28/2021 75149 Chronic Care MGMT 20 Mins Clinical Staff Time Per Calendar Month Completed 05/28/2021 62520 Chronic Care Management Services Ea Addl 20 Min Completed 04/24/2021 83706 Chronic Care MGMT 20 Mins Clinical Staff Time Per Calendar Month Completed 02/04/2021 88285 Chronic Care MGMT 20 Mins Clinical Staff [...] intake of of caffeinated beverages, alcohol, nicotine, [id number] decon gestants etc. * I25.10 Atherosclerotic heart disease of [place] coronary artery with* Recommendations:* Post LAD PTCA: [...]
--- OUTSIDE RECORDS SUMMARY | 2021-09-12 08:54 | CCD | Continuity of Care Document ---
Author Author Joselito MCKEON MD Organization Unknown Address [address] [facility] [address] [place] [address] Phone [phone] Care Team Providers Care Furnace Operator Name Role Phone Christopher Mensah MD @ [facility] Problems Active Problems Provider Date Anemia CATHLEEN Estes Onset: 08/19/2018 Social History Type Date Description Comments Sex Unknown ETOH Use Currently consumes alcohol 4-6 b ottles a day Tobacco Use Start: Unknown End: Unknown Patient is a former smoker 3 PPD X60 YRS Recreational Drug Use Denies Drug Use Tobacco Use Start: Unknown Quit 2011 Allergies, Adverse Reactions, Alerts Description No Known Drug Allergies Medications Active Medications SIG Qnty Indications Ordering Provide r Date Aspirin 81mg Tablets DR 2 by mouth every day Unknown Atorvastatin Calcium 80mg Tablets 1 by mouth every day Unknown Bisoprolol Fumarate 5mg Tablets 1/2 by mouth every day Unknown Torsemide 5mg Tablets 1 by mouth every day Unknown Incruse Ellipta 62.5mcg/Inh Aeroso l 1 puff every day Unknown Losartan Potassium 100mg Tablets daily Unknown Multivitamin Adult Tablets 1 by mouth every day Unknown Omeprazole 20mg Capsules DR 1 by mouth twice a day Unknown Osteo Bi-Flex Regular Strength 250-200mg Tablets 1 by mouth twice a day Unknown Ventolin HFA 108(90Base) mcg/Act A erosol 2 puffs qid/prn Unknown Spironolactone 25mg Tablets 1/2 tab by mouth every day Unknown Chlorthalidone 25mg Tablets 1/2 tab on thursday and Unknown Iron 325(65Fe) mg Tablets 1 tab by mouth every day with dinner Unknown Mag64 64mg Tablets DR one tablet by mouth daily. Unknown Fish Oil 1000mg Capsules 1 qd Unknown Immunizations Description No Information Available Vital Signs Date Vital Result Comment 06/19/2021 2:13pm BP Systolic 104 mmHg BP Diastolic 59 mmHg Heart Rate 72 /min Body Temperature 98.4 F Height 60 inches 5'0" Weight 112.12 lb BMI (Body Mass Index) 21.9 kg/m2 [place] Body Weight 106 lb Weight 50.860 kg BSA (Body Surface Area) 1.46 m2 10/11/2018 10:27am BP Systolic 112 mmHg LA BP Diastolic 69 mmHg LA Heart Rate 64 /min Height 60 inches 5'0" Weight 124.00 lb BMI (Body Mass Index) 24.2 kg/m2 [place] Body Weight 106 lb Weight 56.246 kg BSA (Body Surface Area) 1.52 m2 Results Description No Information Available Procedures Description No Information Available Medical Devices Description No Information Available Encounters Description No Information Available Assessments Description No Information Available Plan of Treatment 10/11/2018 - Elbert Mckeon JR, MD* D64.9 Anemia, unspecified * K29.70 Gastritis, unspecified, without bleeding * * Comments:* The anemia was very mild probably not the source of GI bleeding unless it's completely or almost completely healed at this point in any case his follow-up blood work should show that the anemia has resolved or resolving. From my standpoint there was not any evidence of scarring or ulceration in the stomach and thus I do feel that this is a very unlikely source for his GI bleeding. He'll contact the office if he has any other questions concerns or GI complaints. Functional Status Description No Information Available Mental Status Description No Information Available Referrals Description No Information Available
--- OUTSIDE RECORDS SUMMARY | 2021-09-12 08:54 | CCD | Continuity of Care Document ---
Author Author Joselito Mensah MD Organization Unknown Address [address] [facility] [address] [place] [address] Phone [phone] Care Team Providers Care Tip Fixer Name Role Phone Mika Alvarenga MD AUT[facility] Unavailable Christopher Mensah JR, MD AUTM Unavailable Elbert Mckeon JR, MD AUTM [phone] Carolyne Bruner MD AUTM [phone] Problems Description No Information Available Social History Type Date Description Comments Sex Unknown ETOH Use consumes 1-2 glasses of wine per day Tobacco Use Start: Unknown End: Unknown Patient is a former smoker SMOKED FOR 60YRS 3 ARTEMIO A DAY Allergies, Adverse Reactions, Alerts Active Allergies Reaction Severity Comments Date Navjot Inhibitors Cough 12/19/2014 Inactive Allergies NKDA 12/19/2013 Medications Active Medications SIG Qnty Indications [...] Given 08/03/2020 Influenza,Unspecified U-Flu Given 08/22/2019 Influenza,Unspecified 85676 Given 02/25/2019 Shingrix 82546 Given 12/24/2018 Shingrix Zoster Vaccine (HZV), Recombinant, Subunit, Adjuvanted 31858 Given 08/26/2018 Influenza Virus Vaccine, Quadrivalent (Cciiv4), Derived From 8 Given 10/07/2016 Pneumovax 23 [id number] 29082 Given 12/19/2014 Prevnar 13 [id number] Vital Signs Date Vital Result Comment 06/06/2021 [...] Date Facility Test Result H/L Range Note Complete Blood Count 06/06/2021 [facility] Crinkling Machine Operator: [place] [address] [phone] WBC 8.5 x10*3/UL 4.1 - 10.9 1 RBC 3.46 x10*6/UL Low 4.20 - 6.30 [...] 2.0 - 7.8 Comprehensive Chem Profile 06/06/2021 [facility] [place] Crinkling Machine Operator: [place] [address] [phone] Glucose 92 mg/dL 74 - 99 2 BUN 10 mg/dL 7 - 18 Creatinine 0.9 mg/dL 0.6 - 1.3 Sodium 129 mEq/L Low 136 - 145 3 Potassium 4.4 mEq/L 3.5 - 5.1 Chloride [...] mL/min >60 GFR >= 60 mL/min >60 4 Lipid Profile 06/06/2021 [facility] Crinkling Machine Operator: [place] [address] [phone] Cholesterol 103 mg/dL Low 131 - 200 Triglycerides 39 mg/dL 30 - 150 HDL Cholesterol 81 mg/dL High 35 - 60 LDL (Calculated) INVALID CALC 50 - 159 Laboratory test finding 06/06/2021 [facility] Crinkling Machine Operator: [place] [address] [phone] Thyroid Stimulating Hormone 2.94 uIU/mL 0.3 6 - 3.74 Comprehensive Metabolic Profil 03/01/[address] [address] [phone] Glucose, Fasting 92 mg/dL Normal 70-100 Blood Urea Nitrogen 11 mg/dL Normal 7-18 Creatinine For GFR 0.76 mg/dL Normal 0.70-1.30 Glomerular Filtration Rate > 60.0 Normal >42 5 Sodium Level 128 mEq/L Low 136-145 Potassium [...] Albumin/Globulin Ratio 1.2 Normal Lipid Panel 03/01/2021 [facility] nter [address] [place] [address] [phone] Triglycerides Level 58 mg/dL Normal <150 Cholesterol Level 108 mg/dL Normal <200 HDL Cholesterol 89 mg/dL Normal >40 LDL Cholesterol 7 mg/dL Normal <100 Non-HDL-C 19 mg/dL Normal Cholesterol Risk Ratio 1.213 Normal <5 CBC With Differential 03/01/[address] [place] [address] [phone] White Blood Count 6.2 10 Normal 4.0-10.0 [...] 36.0-66.0 Lymph % 21.6 % Low 24.0-44.0 [place] % 12.1 % High 2.0-8.0 Eos % 2.3 % Normal 0.0-3.0 Baso % 0.8 % Normal 0.0-1.0 Immature Granulocyte % 0.5 % Normal 0-3.0 Nucleated Red Blood Cell % 0.0 % Normal 0-0 Neutrophils # 3.9 10 Normal 1.5-8.5 Lymph # 1.3 10 Low 1.5-5.0 [place] # 0.8 10 Normal 0.0-0.8 Eos # 0.1 10 Normal 0.0-0.5 Baso # 0.1 10 Normal 0.0-0.2 Laboratory test finding 03/01/[address] [address] [phone] Thyroid Stimulating Hormone 1.950 uIU/ML Normal 0. 358-3.740 1 NOTE: CBC VERIFIED 2 100-125 mg/dL PRE-DIABET ES/FASTING >126 mg/dL DIABETES/FASTING 3 NOTE: LYTES,ALBUMIN,T.PROTEIN VERIFIED 4 CHRONIC KIDNEY DISEASE STAGI NG PER NKF STAGE I & II GFR >= 60 NORMAL TO MILDLY DECREASED STAGE III GFR 30-59 MODERATELY DECREASED STAGE IV GFR 15-29 SEVERELY DECREASED STAGE V GFR <15 VERY LITTLE GFR LEFT ESRD GFR <15 ON DRAFTING LAYOUT MAN 5 Units are mL/min/1.73 m2 Chronic Kidney Disease Staging per NKF: Stage I & II GFR >=60 Normal to Mildly Decreased Stage III GFR 30-59 Moderately Decreased Stage IV GFR 15-29 Severely Decreased Stage V GFR <15 Very Little GFR Left ESRD GFR <15 on DRAFTING LAYOUT MAN Procedures Date Code Description Status 06/06/2021 22950 Office/Outpatient Established Mo d MDM 30-39 Min Completed 09/16/2018 72456015 Colonoscopy Completed 03/24/2013 [id number] Colonoscopy Completed Medical Devices Description No Information Available Encounters Type Date Location Provider Dx Diagnosis Office Visit 06/06/2021 8:40a [facility] 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 spirin J44.9 Chronic [...] Provider 06/06/2021 I25.10 Atherosclerotic heart disease of [place] coronary artery with Christopher Mensah MD 06/06/2021 Z95.5 Presence of coronary angioplasty implant and graft Christopher Mensah MD 06/06/2021 Z79.82 senior care (current) use of aspir in Christopher Mensah [...] MD 06/06/2021 F10.10 Alcohol abuse, uncomplicated Col ron Kiana Mensah MD 06/06/2021 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 09/12/2020 - Christopher Mensah MD* I25.10 Atherosclerotic heart disease of [place] coronary artery with * Z95.5 Presence of coronary angioplasty implant and graft * Z79.82 senior care (current) use of aspirin * J44.9 Chronic [...] SOLID F OOD DYSPHAGIA Patient Notified 06/19/2021 [facility] General Surgery [address] [address] [phone]
--- OUTSIDE RECORDS SUMMARY | 2021-09-12 08:54 | CCD | Continuity of Care Document ---
Author Author Joselito Mensah MD Organization Unknown Address [address] [facility] [address] [place] [address] Phone [phone] Care Team Providers Care Supervising Chef Name Role Phone Mika Alvarenga MD AUTM Unavailable Christopher Mensah JR, MD AUTM Unavailable Elbert Mckeon JR, MD AUTM [phone] Carolyne Bruner MD AUTM [phone] Problems Description No Information Available Social History [...] Given 08/03/2020 Influenza,Unspecified U-Flu Given 08/22/2019 Influenza,Unspecified 28062 Given 02/25/2019 Shingrix 45680 Given 12/24/2018 Shingrix Zoster Vaccine (HZV), Recombinant, Subunit, Adjuvanted 55960 Given 08/26/2018 Influenza Virus Vaccine, Quadrivalent (Cciiv4), Derived From 4 Given 10/07/2016 Pneumovax 23 [id number] 36752 Given 12/19/2014 Prevnar 13 [id number] Vital Signs Date Vital Result Comment 06/06/2021 [...] H/L Range Note Complete Blood Count 06/06/2021 [facility] Spine Supervisor: [place] [address] [phone] WBC 8.5 x10*3/UL 4.1 - 10.9 1 [...] 2.0 - 7.8 Comprehensive Chem Profile 06/06/2021 [facility] [place] Spine Supervisor: [place] [address] [phone] Glucose 92 mg/dL 74 - 99 2 [...] 60 mL/min >60 4 Lipid Profile 06/06/2021 [facility] Spine Supervisor: [place] [address] [phone] Cholesterol 103 mg/dL Low 131 - 200 Triglycerides 39 mg/dL 30 - 150 HDL Cholesterol 81 mg/dL High 35 - 60 LDL (Calculated) INVALID CALC 50 - 159 Laboratory test finding 06/06/2021 [facility] Spine Supervisor: Dr Christopher [place] [address] [phone] Thyroid Stimulating Hormone 2.94 uIU/mL 0.3 6 - 3.74 Comprehensive Metabolic Profil 03/01/[address] [address] [phone] Glucose, Fasting 92 mg/dL Normal 70-100 Blood [...] Albumin/Globulin Ratio 1.2 Normal Lipid Panel 03/01/2021 [facility] nter [address] [place] [address] [phone] Triglycerides Level 58 mg/dL Normal <150 Cholesterol Level 108 mg/dL Normal <200 HDL Cholesterol 89 mg/dL Normal >40 LDL Cholesterol 7 mg/dL Normal <100 Non-HDL-C 19 mg/dL Normal Cholesterol Risk Ratio 1.213 Normal <5 CBC With Differential 03/01/[address] [place] [address] [phone] White Blood Count 6.2 10 Normal 4.0-10.0 [...] 36.0-66.0 Lymph % 21.6 % Low 24.0-44.0 [place] % 12.1 % High 2.0-8.0 Eos % 2.3 % Normal 0.0-3.0 Baso % 0.8 % Normal 0.0-1.0 Immature Granulocyte % 0.5 % Normal 0-3.0 Nucleated Red Blood Cell % 0.0 % Normal 0-0 Neutrophils # 3.9 10 Normal 1.5-8.5 Lymph # 1.3 10 Low 1.5-5.0 [place] # 0.8 10 Normal 0.0-0.8 Eos # 0.1 10 Normal 0.0-0.5 Baso # 0.1 10 Normal 0.0-0.2 Laboratory test finding 03/01/[address] [address] [phone] Thyroid Stimulating Hormone 1.950 uIU/ML Normal 0. [...] LITTLE GFR LEFT ESRD GFR <15 ON ELEMENTARY SCIENCE TEACHER 5 Units are mL/min/1.73 m2 Chronic Kidney Disease Staging per NKF: Stage I & II GFR >=60 Normal to Mildly Decreased Stage III GFR 30-59 Moderately Decreased Stage IV GFR 15-29 Severely Decreased Stage V GFR <15 Very Little GFR Left ESRD GFR <15 on ELEMENTARY SCIENCE TEACHER Procedures Date Code Description Status 06/06/2021 85756 Office/Outpatient Established Mo d MDM 30-39 Min Completed 09/16/2018 [id number] Colonoscopy Completed 03/24/2013 [id number] Colonoscopy Completed Medical Devices Description No Information Available Encounters Type Date Location Provider Dx Diagnosis Office Visit 06/06/2021 8:40a [facility] 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 09/12/2020 - Christopher Mensah MD* I25.10 Atherosclerotic heart disease of [place] coronary artery with * Z95.5 Presence of coronary angioplasty implant and graft * Z79.82 detention (current) use of aspirin * J44.9 Chronic [...] SOLID F OOD DYSPHAGIA Patient Notified 06/19/2021 [facility] General Surgery [address] [address] [phone]
--- OUTSIDE RECORDS SUMMARY | 2021-09-12 08:54 | CCD | Continuity of Care Document ---
Author Author Joselito ALVARENGA MD Organization Unknown Address [facility] [place] [address] Phone [phone] Care Team Providers Care Finishing Area Operator Name Role Phone Drew Villalobos MD AUTM [phone] Rodrigo Schilling DO AUTM [phone] Anisha Robles AUTM [phone] Makenna DINH MD, Christopher Steele AUTM [phone] Clarisa Berry MD AUTM [phone] Problems Active Problems Provider Date Dyspnea Mika [...] Onse t: 06/07/2018 Atherosclerotic heart disease of [place] coronary arter y without angina pectoris JAYDA [...] ek Exercise Type/Frequency General 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[employer] Exercise Limitations Shortness Of Breath Allergies, Adverse [...] by mouth every day Makenna DINH MD, [facility] 020 Aspirin 81mg Chewtabs 2 by [...] Available Procedures Date Code Description Status 05/28/2021 60696 Chronic Care MGMT 20 Mins Clinical Staff Time Per Calendar Month Completed 05/28/2021 57847 Chronic Care Management Services Ea Addl 20 Min Completed 04/24/2021 10204 Chronic Care MGMT 20 Mins Clinical Staff Time Per Calendar Month Completed 02/04/2021 88690 Chronic Care MGMT 20 Mins Clinical Staff [...] MD 02/04/2021 I11.9 Hypertensive heart disease witho md heart failure Mika Alvarenga MD 02/04/2021 E78.5 [...] intake of of caffeinated beverages, alcohol, nicotine, [id number] decon gestants etc. * I25.10 Atherosclerotic heart disease of [place] coronary artery with* Recommendations:* Post LAD PTCA: [...]
--- OUTSIDE RECORDS SUMMARY | 2021-09-12 08:55 | CCD ---
Author Author [facility] Organization [facility] Address Unknown Phone Unavailable Care Team Providers Care Manager Insurance Name Role Phone Priya COTE MD Unavailable Unavailable Priya COTE MD Unavailable Unavailable Priya COTE MD Unavailable Unavailable Priya COTE MD Unavailable Unavailable Priya COTE MD Unavailable Unavailable Priya COTE MD Unavailable Unavailable Priya COTE MD Unavailable Unavailable Priya COTE MD Unavailable Unavailable Priya COTE MD Unavailable Unavailable Priya COTE MD Unavailable Unavailable Priya COTE MD Unavailable Unavailable Priya COTE MD Unavailable Unavailable Priya COTE MD Unavailable Unavailable Priya COTE MD Unavailable Unavailable Priya COTE MD Unavailable Unavailable Priya COTE MD Unavailable Unavailable Priya COTE MD Unavailable Unavailable Priya COTE MD Unavailable Unavailable Priya COTE MD Unavailable Unavailable Priya COTE MD Unavailable Unavailable Priya COTE MD Unavailable Unavailable Priya COTE MD Unavailable Unavailable Priya COTE MD Unavailable Unavailable Priya COTE MD Unavailable Unavailable Priya COTE MD Unavailable Unavailable Priya COTE MD Unavailable Unavailable Priya COTE MD Unavailable Unavailable Priya COTE MD Unavailable Unavailable Priya COTE MD Unavailable Unavailable Priya COTE MD Unavailable Unavailable Priya COTE MD Unavailable Unavailable Priya COTE MD Unavailable Unavailable Priya COTE MD Unavailable Unavailable Priya COTE MD Unavailable Unavailable Priya COTE MD Unavailable Unavailable Priya COTE MD Unavailable Unavailable Priya COTE MD Unavailable Unavailable Priya COTE MD Unavailable Unavailable Priya COTE MD Unavailable Unavailable Priya COTE MD Unavailable Unavailable Priya COTE MD Unavailable Unavailable Priya COTE MD Unavailable Unavailable Priya COTE MD Unavailable Unavailable Priya COTE MD Unavailable Unavailable Priya COTE MD Unavailable Unavailable Priya COTE MD Unavailable Unavailable Priya COTE MD Unavailable Unavailable Priya COTE MD Unavailable Unavailable Priya COTE MD Unavailable Unavailable Priya COTE MD Unavailable Unavailable Priya COTE MD Unavailable Unavailable Priya COTE MD Unavailable Unavailable Priya COTE MD Unavailable Unavailable Priya COTE MD Unavailable Unavailable Ivette Mensah MD Unavailable Unavailable HanlontownIvetet mendez MD Unavailable Unavailable Ivette Mensah MD Unavailable Unavailable Ivette Mensah MD Unavailable Unavailable Ivette Mensah MD Unavailable Unavailable Ivette Mensah MD Unavailable Unavailable Ivette Mensah MD Unavailable Unavailable Ivette Mensah MD Unavailable Unavailable Ivette Mensah MD Unavailable Unavailable Ivette Mensah MD Unavailable Unavailable Ivette Mensah MD Unavailable Unavailable Ivette Mensah MD Unavailable Unavailable Ivette Mensah MD Unavailable Unavailable Ivette Mensah MD Unavailable Unavailable Ivette Mensah MD Unavailable Unavailable Ivette Mensah MD Unavailable Unavailable Ivette Mensah MD Unavailable Unavailable Ivette Mensah MD Unavailable Unavailable Ivette Mensah MD Unavailable Unavailable Ivette Mensah MD Unavailable Unavailable Ivette Mensah MD Unavailable Unavailable MakennaIvette mendez MD Unavailable Unavailable Hanlont[place]Ivette mendez MD Unavailable Unavailable Ivette Mensah MD Unavailable Unavailable Ivette Mensah MD Unavailable Unavailable Ivette Mensah MD Unavailable Unavailable Hanlont[place]Ivette mendez MD Unavailable Unavailable Hanlont[place]Ivette mendez MD Unavailable Unavailable MakennaIvette mendez MD Unavailable Unavailable MakennaIvette mendez MD Unavailable Unavailable [place]lont[place]Ivette mendez MD Unavailable Unavailable MakennaIvette mendez MD Unavailable Unavailable Ivette Mensah MD Unavailable Unavailable MakennaIvette mendez MD Unavailable Unavailable MakennaIvette menedz MD Unavailable Unavailable MakennaIvette mendez MD Unavailable Unavailable [place]vette mendez MD Unavailable Unavailable MakennaIvette mendez MD Unavailable Unavailable [place]vette MD Unavailable Unavailable MakennaIvette MD Unavailable Unavailable Makenna, Ivette White MD Unavailable Unavailable [place]vette MD Unavailable Unavailable Makenna, Ivette White MD Unavailable Unavailable [place]Ivette MD Unavailable Unavailable MakennaIvette MD Unavailable Unavailable MakennaIvette MD Unavailable Unavailable [place]Ivette MD Unavailable Unavailable [place]Ivette MD Unavailable Unavailable MakennaIvette MD Unavailable Unavailable Hanlont[place]Ivette MD Unavailable Unavailable [place]Ivette MD Unavailable Unavailable MakennaIvette MD Unavailable Unavailable [place]Ivette MD Unavailable Unavailable MakennaIvette MD Unavailable Unavailable [place]lont[place]Ivette MD Unavailable Unavailable [place]Ivette MD Unavailable Unavailable [place]Ivette MD Unavailable Unavailable [place]Ivette MD Unavailable Unavailable MakennaIvette MD Unavailable Unavailable MakennaIvette MD Unavailable Unavailable [place]vette MD Unavailable Unavailable MakennaIvette MD Unavailable Unavailable MakennaIvette MD Unavailable Unavailable [place]Ivette MD Unavailable Unavailable [place]Ivette MD Unavailable Unavailable [place]Ivette MD Unavailable Unavailable MakennaIvette MD Unavailable Unavailable MakennaIvette MD Unavailable Unavailable MakennaIvette MD Unavailable Unavailable MakennaIvette MD Unavailable Unavailable MakennaIvette MD Unavailable Unavailable MakennaIvette MD Unavailable Unavailable MakennaIvette MD Unavailable Unavailable MakennaIvette mendez MD Unavailable Unavailable MakennaIvette MD Unavailable Unavailable [place]vette MD Unavailable Unavailable MakennaIvette MD Unavailable Unavailable [place]vette MD Unavailable Unavailable [place]vette MD Unavailable Unavailable [place]vette mendez MD Unavailable Unavailable MakennaIvette mendez MD Unavailable Unavailable MakennaIvette MD Unavailable Unavailable MakennaIvette MD Unavailable Unavailable MakennaIvette MD Unavailable Unavailable MakennaIvette MD Unavailable Unavailable [place]vette MD Unavailable Unavailable Misha Mckeon JR, MD Unavailable Unavailable Misha Mckeon JR, MD Unavailable Unavailable Misha Mckeon JR, MD Unavailable Unavailable Misha Mckeon JR, MD Unavailable Unavailable Misha Mckeon JR, MD Unavailable Unavailable Misha Mckeon JR, MD Unavailable Unavailable Misha Mckeon JR, MD Unavailable Unavailable MikeMisha arambula JR, MD Unavailable Unavailable MikeMisha arambula JR, MD Unavailable Unavailable MikeMisha arambula JR, MD Unavailable Unavailable MikeMisha arambula JR, MD Unavailable Unavailable MikeMisha arambula JR, MD Unavailable Unavailable MikeMisha arambula JR, MD Unavailable Unavailable Mike JR, Misha Boswell MD Unavailable Unavailable Mike JR, J Elbert BRISCOE Unavailable Unavailable Mike JR, Misha Boswell MD Unavailable Unavailable Mike JR, J Elbert BRISCOE Unavailable Unavailable Mike JR, J Elbert BRISCOE Unavailable Unavailable MikeMisha arambula JR, MD Unavailable Unavailable Misha Mckeon JR, MD Unavailable Unavailable Mike DINH, Misha Boswell MD Unavailable Unavailable Mike JR, Misha Boswell MD Unavailable Unavailable MikeMisha arambula JR, MD Unavailable Unavailable Misha Mckeon JR, MD Unavailable Unavailable Misha Mckeon JR, MD Unavailable Unavailable Misha Mckeon JR, MD Unavailable Unavailable Misha Mckeon JR, MD Unavailable Unavailable Mike DINH, Misha Boswell MD Unavailable Unavailable Misha Mckeon JR, MD Unavailable Unavailable Misha Mckeon JR, MD Unavailable Unavailable Misha Mckeon JR, MD Unavailable Unavailable Misha Mckeon JR, MD Unavailable Unavailable Misha Mckeon JR, MD Unavailable Unavailable Misha Mckeon JR, MD Unavailable Unavailable Misha Mckeon JR, MD Unavailable Unavailable Misha Mckeon JR, MD Unavailable Unavailable Misha Mckeon JR, MD Unavailable Unavailable Misha Mckeon JR, MD Unavailable Unavailable Misha Mckeon JR, MD Unavailable Unavailable Misha Mckeon JR, MD Unavailable Unavailable Misha Mckeon JR, MD Unavailable Unavailable Misha Mckeon JR, MD Unavailable Unavailable Misha Mckeon JR, MD Unavailable Unavailable Misha Mckeon JR, MD Unavailable Unavailable Misha Mckeon JR, MD Unavailable Unavailable Misha Mckeon JR, MD Unavailable Unavailable Misha Mckeon JR, MD Unavailable Unavailable Misha Mckeon JR, MD Unavailable Unavailable Misha Mckeon JR, MD Unavailable Unavailable MikeMisha arambula JR, MD Unavailable Unavailable Misha Mckeon JR, MD Unavailable Unavailable Misha Mckeon JR, MD Unavailable Unavailable Misha Mckeon JR, MD Unavailable Unavailable Misha Mckeon JR, MD Unavailable Unavailable Re-disclosure Warning The records that you are about to access may contain information from federally-assisted alcohol or drug abuse programs. If such information is present, then the following federally mandated warning applies: This information has been disclosed to you from records protected by federal confidentiality rules (42 CFR part 2). The federal rules prohibit you from making any further disclosure of this information unless further disclosure is expressly permitted by the written consent of the person to whom it pertains or as otherwise permitted by 42 CFR part 2. A general authorization for the release of medical or other information is NOT sufficient for this purpose. The Federal rules restrict any use of the information to criminally investigate or prosecute any alcohol or drug abuse patient.The records that you are about to access may contain highly sensitive health information, the redisclosure of which is protected by Article 27-F of the [facility] Public Health law. If you continue you may have access to information: Regarding HIV / AIDS; Provided by facilities licensed or operated by the [facility] Office of Mental Health; or Provided by the [facility] Office for People With Developmental Disabilities. If such information is present, then the following [facility] mandated warning applies: This information has been disclosed to you from confidential records which are protected by state law. State law prohibits you from making any further disclosure of this information without the specific written consent of the person to whom it pertains, or as otherwise permitted by law. Any unauthorized further disclosure in violation of state law may result in a fine or intermediate sentence or both. A general authorization for the release of medical or other information is NOT sufficient authorization for further disc losure. Family History Family Member Name Family Member Gender Family Member Status Date o f Status Description Data Source(s) Unknown Female Problem MEDENT ([facility]) Unknown Unknown Problem [facility] Unknown Female Problem MEDENT ([facility]) Encounters Encounter Providers Location Date Indications Data Source(s ) Outpatient Attender: CARLOS COTE MD Main Office 07/30/2021 10:30:00 AM EDT MED[facility] ([facility]) Outpatient Attender: CARLOS COTE MD Main Office 07/15/2021 10:30:00 AM EDT MED[facility] ([facility]) Office Visit Attender: CARLOS COTE MD Main Office 07/02/2021 01:01:0 0 PM EDT [facility] ([facility]) Outpatient Attender: Elbert Walls/Angelica/Henok/Rein dl 06/19/2021 01:45:00 PM EDT MEDENT ([facility]) Outpatient Attender: Christopher Finley 0 06/06/2021 08:40:00 AM EDT MEDENT ([facility] ) Office Visit Attender: CARLOS COTE MD Main Office 05/28/2021 10:51:0 0 AM EDT MED[facility] ([facility]) Office Visit Attender: CARLOS COTE MD Main Office 04/24/2021 08:37:0 0 AM EDT MED[facility] ([facility]) Outpatient [address], [facility] [id number] 04/11/2021 12:00:00 AM EDT eCW1 ([facility]) Office Visit Attender: CARLOS COTE MD Main Office 02/04/2021 02:15:0 0 PM EDT MEDENT ([facility]) Outpatient Attender: CARLOS COTE MD Main Office 11/19/2020 09:15:00 AM EST [facility] ([facility]) Office Visit Attender: CARLOS COTE MD Main Office 11/07/2020 01:09:0 0 PM EST [facility] ([facility]) Office Visit Attender: CARLOS COTE MD Main Office 09/28/2020 10:14:0 0 AM EST MED[facility] ([facility]) Outpatient Attender: Christopher Finley 1 11/12/2019 10:20:00 AM EST MEDENT ([facility] ) Office Visit Attender: CARLOS COTE MD Main Office 08/23/2020 09:11:0 0 AM EDT MED[facility] ([facility]) Outpatient Attender: CARLOS COTE MD Main Office 08/09/2020 11:00:00 AM EDT MED[facility] ([facility]) Outpatient [address] [facility] [id number] 08/03/2020 12:00:00 AM EDT eCW1 ([facility]) OFFICE OUTPATIENT VISIT 40 MINUTES Attender: CARLOS COTE MD [facility] n Office 07/25/2020 09:00:00 AM EDT [facility] ([facility]) Office Visit Attender: CARLOS COTE MD Main Office 07/19/2020 10:12:0 0 AM EDT ROBEL ([facility]) Immunizations Vaccine Date Status Description Data Source(s) COVID-19 VACCINE Pfizer 12/23/2020 12:00:00 AM EST completed [facility] Vaccine Series Complete: YESThis Data wa s Submitted to [facility] Via [employer]. COVID-19 VACCINE Pfizer 12/02/2020 12:00:00 AM EST completed [facility] Vaccine Series Complete: NOThis Data was Submitted to [facility] [employer]. influenza, recombinant, quadrIvalent,injectable, prese rvative free 08/03/2020 02:24:00 PM EDT completed eCW1 ([facility]) influenza, recombinant, quadrIvalent,injectable, prese rvative free 08/03/2020 02:24:00 PM EDT completed eCW1 ([facility]) influenza, recombinant, quadrIvalent,injectable, prese rvative free 08/03/2020 02:24:00 PM EDT completed eCW1 ([facility]) This CVX code allows reporting of a vacc ination when formulation is unknown (for example, when recording a Influenza vaccination when noted on a vaccination card) 08/03/2020 12:50:00 PM EDT completed PRANAV [place] ([facility]) Medications Medication Brand Name Start Date Product Form Dose Route Admi nistrative Instructions Pharmacy Instructions Status Indications Reaction Description Data Source(s) 62.5 mcg/actuation 08/26/2021 12:00:00 AM EDT blister with d evice 90 INHALE ONE PUFF BY MOUTH DAILY INHALE ONE PUFF BY MOUTH DAILY SOLD: 08/26/2021 [facility] 240 mcg/0.7 mL 08/26/2021 12:00:00 AM EDT syringe 0 DIRECTED INJECTION LEFT ARM DIRECTED INJECTION LEFT ARM SOLD: 08/26/2021 [facility] 25 mg 08/15/2021 12:00:00 AM EDT tablet 45 TAKE ONE-HALF TABLET BY MOUTH EVERY DAY TAKE ONE-HALF TABLET BY MOUTH EVERY DAY SOLD: 08/15/2021 [facility] 5 mg 07/15/2021 12:00:00 AM EDT tablet 30 TAKE ONE TABLET BY MOUTH EVERY DAY TAKE ONE TABLET BY MOUTH EVERY DAY SOLD: 07/15/2021 [facility] torsemide 5 MG Oral Tablet Torsemide 07/15/2021 12:00:00 AM EDT ORAL active [facility] ([facility]) 25 mg 07/15/2021 12:00:00 AM EDT tablet 12 TAKE ONE-HALF TABLET BY MOUTH DAILY ON MONDAYS AND THURSDAYS ONLY TAKE ONE-HALF TABLET BY MOUTH DAILY ON MONDAYS AND THURSDAYS ONLY SOLD: 07/15/2021 [facility] 5 mg 07/15/2021 12:00:00 AM EDT tablet 30 TAKE ONE TABLET BY MOUTH EVERY DAY TAKE ONE TABLET BY MOUTH EVERY DAY SOLD: 08/15/2021 [facility] 80 mg 05/27/2021 12:00:00 AM EDT tablet 90 TAKE ONE TABLET BY MOUTH EVERY DAY TAKE ONE TABLET BY MOUTH EVERY DAY SOLD: 05/27/2021 [facility] 62.5 mcg/actuation 04/24/2021 12:00:00 AM EDT blister with d evice 90 INHALE ONE PUFF BY MOUTH EVERY DAY INHALE ONE PUFF BY MOUTH EVERY DAY SOLD: 04/26/2021 [facility] 1 % 03/19/2021 12:00:00 AM EDT drops,suspension 5 INSTILL ONE DROP INTO RIGHT EYE THREE TIMES A DAY INSTILL ONE DROP INTO RIGHT EYE THREE TIMES A DAY SOLD: 03/20/2021 [facility] 20 mg 03/11/2021 12:00:00 AM EDT capsule,delayed release (DR/EC) 180 TAKE TWO CAPSULES BY MOUTH EVERY DAY TAKE TWO CAPSULES BY MOUTH EVERY DAY SOLD: 07/05/2021 [facility] 20 mg 03/11/2021 12:00:00 AM EDT capsule,delayed release (DR/EC) 180 TAKE TWO CAPSULES BY MOUTH EVERY DAY TAKE TWO CAPSULES BY MOUTH EVERY DAY SOLD: 03/11/2021 [facility] Covid-19 vaccine, Unspecified 12/23/2020 12:00:00 AM EST completed [facility] ([facility]) Medication administered onsite 100 mg 12/17/2020 12:00:00 AM EST tablet 90 TAKE ONE TABLET BY MOUTH EVERY DAY TAKE ONE TABLET BY MOUTH EVERY DAY SOLD: 03/14/2021 [facility] 100 mg 12/17/2020 12:00:00 AM EST tablet 90 TAKE ONE TABLET BY MOUTH EVERY DAY TAKE ONE TABLET BY MOUTH EVERY DAY SOLD: 12/17/2020 [facility] 100 mg 12/17/2020 12:00:00 AM EST tablet 90 TAKE ONE TABLET BY MOUTH EVERY DAY TAKE ONE TABLET BY MOUTH EVERY DAY SOLD: 07/05/2021 [facility] 1 % 12/06/2020 12:00:00 AM EST drops,suspension 5 INSTILL 1 DROP IN THE RIGHT EYE FOUR TIMES A DAY INSTILL 1 DROP IN THE RIGHT EYE FOUR TIMES A DAY SOLD: 12/06/2020 [facility] Covid-19 vaccine, Unspecified 12/02/2020 12:00:00 AM EST completed [facility] ([facility]) Medication administered onsite [facility] 11/18/2020 12:00:00 AM EST active [facility] ([facility]) 5 mg 10/07/2020 12:00:00 AM EST tablet 45 TAKE ONE-HALF TABLET BY MOUTH ONCE DAILY TAKE ONE-HALF TABLET BY MOUTH ONCE DAILY SOLD: 10/08/2020 [facility] 62.5 mcg/actuation 10/07/2020 12:00:00 AM EST blister with d evice 90 INHALE ONE PUFF BY MOUTH EVERY DAY INHALE ONE PUFF BY MOUTH EVERY DAY SOLD: 10/08/2020 [facility] 5 mg 10/07/2020 12:00:00 AM EST tablet 45 TAKE ONE-HALF TABLET BY MOUTH ONCE DAILY TAKE ONE-HALF TABLET BY MOUTH ONCE DAILY SOLD: 07/15/2021 [facility] 5 mg 10/07/2020 12:00:00 AM EST tablet 45 TAKE ONE-HALF TABLET BY MOUTH ONCE DAILY TAKE ONE-HALF TABLET BY MOUTH ONCE DAILY SOLD: 04/04/2021 [facility] 5 mg 10/07/2020 12:00:00 AM EST tablet 45 TAKE ONE-HALF TABLET BY MOUTH ONCE DAILY TAKE ONE-HALF TABLET BY MOUTH ONCE DAILY SOLD: 01/03/2021 [facility] 62.5 mcg/actuation 10/07/2020 12:00:00 AM EST blister with d evice 90 INHALE ONE PUFF BY MOUTH EVERY DAY INHALE ONE PUFF BY MOUTH EVERY DAY SOLD: 01/25/2021 [facility] 80 mg 09/04/2020 12:00:00 AM EST tablet 90 TAKE ONE TABLET BY MOUTH EVERY DAY TAKE ONE TABLET BY MOUTH EVERY DAY SOLD: 03/04/2021 [facility] 80 mg 09/04/2020 12:00:00 AM EST tablet 90 TAKE ONE TABLET BY MOUTH EVERY DAY TAKE ONE TABLET BY MOUTH EVERY DAY SOLD: 11/29/2020 [facility] 80 mg 09/04/2020 12:00:00 AM EST tablet 7 TAKE ONE TABLET BY MOUTH EVERY DAY TAKE ONE TABLET BY MOUTH EVERY DAY SOLD: 05/16/2021 [facility] 25 mg 08/18/2020 12:00:00 AM EDT tablet 45 TAKE ONE-HALF TABLET BY MOUTH EVERY DAY TAKE ONE-HALF TABLET BY MOUTH EVERY DAY SOLD: 08/18/2020 [facility] 25 mg 08/18/2020 12:00:00 AM EDT tablet 45 TAKE ONE-HALF TABLET BY MOUTH EVERY DAY TAKE ONE-HALF TABLET BY MOUTH EVERY DAY SOLD: 02/06/2021 [facility] 25 mg 08/18/2020 12:00:00 AM EDT tablet 45 TAKE ONE-HALF TABLET BY MOUTH EVERY DAY TAKE ONE-HALF TABLET BY MOUTH EVERY DAY SOLD: 11/08/2020 [facility] 25 mg 08/18/2020 12:00:00 AM EDT tablet 45 TAKE ONE-HALF TABLET BY MOUTH EVERY DAY TAKE ONE-HALF TABLET BY MOUTH EVERY DAY SOLD: 05/16/2021 [facility] 25 mg 08/16/2020 12:00:00 AM EDT tablet 12 TAKE ONE-HALF TABLET BY MOUTH DAILY ON MONDAYS AND THURSDAYS ONLY TAKE ONE-HALF TABLET BY MOUTH DAILY ON MONDAYS AND THURSDAYS ONLY SOLD: 04/18/2021 [facility] 25 mg 08/16/2020 12:00:00 AM EDT tablet 12 TAKE ONE-HALF TABLET BY MOUTH DAILY ON MONDAYS AND THURSDAYS ONLY TAKE ONE-HALF TABLET BY MOUTH DAILY ON MONDAYS AND THURSDAYS ONLY SOLD: 08/18/2020 [facility] 25 mg 08/16/2020 12:00:00 AM EDT tablet 12 TAKE ONE-HALF TABLET BY MOUTH DAILY ON MONDAYS AND THURSDAYS ONLY TAKE ONE-HALF TABLET BY MOUTH DAILY ON MONDAYS AND THURSDAYS ONLY SOLD: 01/25/2021 [facility] 25 mg 08/16/2020 12:00:00 AM EDT tablet 12 TAKE ONE-HALF TABLET BY MOUTH DAILY ON MONDAYS AND THURSDAYS ONLY TAKE ONE-HALF TABLET BY MOUTH DAILY ON MONDAYS AND THURSDAYS ONLY SOLD: 11/01/2020 [facility] Chlorthalidone 25 MG Oral Tablet Chlorthalidone 08/09/2020 12:00:00 A M EDT ORAL active MEDENT ([facility]) 25 mg 07/25/2020 12:00:00 AM EDT tablet 6 TAKE ONE-HALF TABLET BY MOUTH EVERY DAY, ON MONDAYS, WEDNESDAYS AND FRIDAYS ONLY TAKE ONE-HALF TABLET BY MOUTH EVERY DAY, ON MONDAYS, WEDNESDAYS AND FRIDAYS ONLY SOLD: 07/25/2020 [facility] Spironolactone 25 MG Oral Tablet Spironolactone 07/25/2020 12:00:00 A M EDT ORAL active [facility] ([facility]) Chlorthalidone 25 MG Oral Tablet Chlorthalidone 07/25/2020 12:00:00 A M EDT ORAL completed [facility] ([facility]) 25 mg 07/25/2020 12:00:00 AM EDT tablet 15 TAKE 1/2 TABLET BY MOUTH DAILY TAKE 1/2 TABLET BY MOUTH DAILY SOLD: 07/25/2020 [facility] 20 mg 01/18/2020 12:00:00 AM EDT capsule,delayed release (DR/EC) 180 TAKE TWO CAPSULES BY MOUTH EVERY DAY TAKE TWO CAPSULES BY MOUTH EVERY DAY SOLD: 11/01/2020 [facility] 100 mg 12/17/2019 12:00:00 AM EST tablet 90 TAKE ONE TABLET BY MOUTH EVERY DAY TAKE ONE TABLET BY MOUTH EVERY DAY SOLD: 09/17/2020 [facility] Insurance Providers Payer name Policy type / Coverage type Policy ID Covered alliance party ID Covered alliance party's relationship to huitron Policy [place] Plan Information MEDICARE [id number] SP [id number] A MEDICARE [id number] Taryn [id number] A Medicare (Part B) Medicare Primary [id number] Self Medicare Natl Govt Servic Medicare Primary [id number] Self [id number] Medicare (Part B) Medicare Primary [id number] Self [id number] Medicare (Part B) Medicare Primary [id number] Self 0 [id number] Medicare Natl Govt Servic Medicare Primary [id number] Self [id number] Medicare Medicare Primary [id number] Self Medicare Natl Govt Servic Medicare Primary [id number] Self [id number] Medicare (Part B) Medicare Primary [id number] Self [id number] Medicare Natl Govt Servic Medicare Primary [id number] Self Medicare (Part B) Medicare Primary [id number] Self 0 [id number] Medicare (Part B) Medicare Primary [id number] Self 0 [id number] MEDICAID [id number] Taryn [id number] ANSI-Medicare Part B [id number] ANSI-Commercial [id number] ANSI-Medicaid [id number] ANSI-Medicare Part B [id number] ANSI-Medicare Part B [id number] ANSI-Medicaid [id number] ANSI-Commercial [id number] ANSI-Medicaid [id number] ANSI-Medicare Part B [id number] ANSI-Commercial [id number] [place] [id number] Family Dependent 8 [id number] [facility] [id number] Self [id number] ANSI-Commercial [id number] ANSI-Medicaid [id number] ANSI-Medicare Part B [id number] ANSI-Commercial [id number] ANSI-Medicare Part B [id number] ANSI-Medicaid [id number] ANSI-Medicaid [id number] ANSI-Commercial [id number] ANSI-Medicare Part B [id number] ANSI-Medicaid [id number] ANSI-Medicare Part B [id number] ANSI-Commercial [id number] MEDICARE [id number] ANSI-Medicare Part B [id number] ANSI-Commercial [id number] ANSI-Medicaid [id number] ANSI-Commercial [id number] ANSI-Medicare Part B [id number] ANSI-Medicaid [id number] Medicaid Medigap Part B [id number] 39.0 Self [id number] [facility] Medigap Part B [id number] Family Dependent [id number] MEDICAID [id number] S [id number] [facility] MEDICARE DIVISION [id number] S [id number] [place]IC[place] [id number] S [id number] ANSI-Medicare Part B [id number] ANSI-Commercial [id number] ANSI-Medicaid [id number] [facility] [id number] Family Dependent 8 [id number] Medicaid Medigap Part B [id number] 0.0 Self [id number] ANSI-Medicaid [id number] ANSI-Medicare Part B [id number] ANSI-Commercial [id number] [facility] [id number] Family Dependent 8 [id number] Medicaid Medigap Part B [id number] 0.0 Self [id number] MEDICAID UNAVAILABLE S UNA[place]ILA BLE [place] MEDICARE DIVISION UNAVAILABLE S UNAVAILABLE [place]ICARE [place] UNAVAILABLE S UNAVAILABLE BCBS OF [place] [id number] YLS [id number] ANSI-Medicaid [id number] ANSI-Medicare Part B [id number] ANSI-Commercial [id number] MEDICAID PI PI MEDICARE PI PI [place] [facility] Medigap Part B [id number] Family Dependent 8 [id number] Medicaid Medigap Part B [id number] 0.0 Self [id number] [place] [facility] Medigap Part B [id number] Family Dependent 8 [id number] Medicaid Medigap Part B [id number] 0.0 Self [id number] Medicaid Medigap Part B [id number] 39.0 Self [id number] [facility] [place] Medigap Part B [id number] Family Dependent [id number] MEDICARE C [id number] S [id number] A Medicaid [place] Medigap Part B [id number] Self [place] [facility] [employer] [facility] (HMO) [id number] Family Dependent Medicaid Medigap Part B [id number] Self 1 1 [facility] [place] Medigap Part B [id number] Family Dep endent [place] [facility] Medigap Part B [id number] Family De pendent Medicaid Medigap Part B [id number] Self [address] [facility] [id number] SP [id number] [facility] DIV [id number] SP [id number] MEDICARE [id number] SP [id number] A [facility] P [id number] S [id number] [facility] MEDICAID [id number] SP [id number] W [id number] MEDICARE [id number] SP [id number] [facility] MEDICAID [id number] SP [id number] [place] [id number] SP [id number] MEDICARE C [id number] S [id number] MEDICAID M [id number] S [id number] MEDICAID [id number] SP [id number] ANS-Medicare Part B [id number] ANS-Medicaid [id number] ANSI-Commercial [id number] Medicaid [facility] Part B [id number] 39.0 Self [id number] [facility] Part B [id number] Family Dependent [id number] ANSI-Medicaid [id number] ANSI-Commercial [id number] Problems, Conditions, and Diagnoses Code Display Name Description Problem Type Effective Dates Data Source(s) I50.32 Chronic diastolic heart failure Chronic diastolic hear t failure Problem 07/30/2021 12:00:00 AM EDT [facility] ([facility]) 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 Problem 07/30/2021 12:00:00 AM EDT [facility] ([facility]) I27.81 Chronic cor pulmonale Chronic cor pulmonale Problem 07/15/2021 12:00:00 AM EDT [facility] ([facility]) 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 Chronic pulmonary hear t disease Problem 11/19/2020 12:00:00 AM EST [facility] ([facility]) H91.92 [id number] Hearing loss of left ear, unspec ified hearing loss type Problem 08/03/2020 12:00:00 AM EDT eCW1 ([facility]) Surgeries/Procedures Procedure Description Date Indications Data Source(s) OFFICE OUTPATIENT VISIT 25 MINUTES 07/30/2021 12:00:00 AM EDT [facility] ([facility]) ECG ROUTINE ECG W/LEAST 12 LDS W/I&R 07/15/2021 12:00: 00 AM EDT [facility] ([facility]) OFFICE OUTPATIENT VISIT 25 MINUTES 07/15/2021 12:00:00 AM EDT [facility] ([facility]) Chronic Care MGMT 20 Mins Clinical Staff Time Per Calendar M [facility] 07/02/2021 12:00:00 AM EDT [facility] ([facility]) OFFICE OUTPATIENT VISIT 15 MINUTES 06/19/2021 12:00:00 AM EDT MED[facility] ([facility] ) OFFICE OUTPATIENT VISIT 25 MINUTES 06/06/2021 12:00:00 AM EDT MED[facility] ([facility]) Chronic Care Management Services Ea Addl 20 Min 2020 12:00:00 AM EDT [facility] ([facility]) Chronic Care MGMT 20 Mins Clinical Staff Time Per Calendar M [facility] 05/28/2021 12:00:00 AM EDT [facility] ([facility] [employer] [facility]) Chronic Care MGMT 20 Mins Clinical Staff Time Per Calendar M [facility] 04/24/2021 12:00:00 AM EDT [facility] ([facility] [employer] [facility]) Chronic Care MGMT 20 Mins Clinical Staff Time Per Calendar M [facility] 02/04/2021 12:00:00 AM EDT [facility] ([facility] [employer] [facility]) ECG ROUTINE ECG W/LEAST 12 LDS W/I&R 11/19/2020 12:00: 00 AM EST [facility] ([facility]) ECHO TTHRC R-T 2D W/WOM-MODE COMPL SPEC&COLR DOP 08/27 12:00:00 AM EDT [facility] ([facility]) MYOCARDIAL SPECT MULTIPLE STUDIES 08/07/2020 12:00:00 AM EDT [facility] ([facility]) CV STRS TST XERS&/OR RX CONT ECG PHYS SI&R 08/07/2020 12:00:00 AM EDT [facility] ([facility]) Immunization: Flublok Quadrivalent (18 years & older) 0.5mL IM (Influenza) 08/03/2020 12:00:00 AM EDT eCW1 ([facility]) ECG ROUTINE ECG W/LEAST 12 LDS W/I&R 07/25/2020 12:00: 00 AM EDT [facility] ([facility]) Results ID Date Data Source [id number] 07/29/2021 12:10:00 PM EDT [facility] ([facility]) Name Value Range Interpretation Code Description Data Chica rce(s) Supporting Document(s) Reticulocyte # 58.6 10 17-77 [facility] ([facility]) Reticulocyte % 1.6 % 0.5-1.5 [facility] Retic Hemoglobin Equivalent 35.9 pg 24-36 ME DENT ([facility]) ID Date Data Source [id number] 07/29/2021 12:10:00 PM EDT [facility] ([facility]) Name Value Range Interpretation Code Description Data Chica rce(s) Supporting Document(s) Erythrocyte sedimentation rate by Westergren method 8 mm/hr 0-20 [facility] ([facility]) ID Date Data Source [id number] 07/29/2021 12:10:00 PM EDT [facility] ([facility]) Name Value Range Interpretation Code Description Data Chica rce(s) Supporting Document(s) White Blood Count 7.7 10 4.0-10.0 [facility] ([facility]) Red Blood Count 3.64 10 4.30-6.10 [facility] ([facility]) Hemoglobin 11.3 g/dL 13.5-17.5 [facility] [facility] Hematocrit 33.5 % 42.0-52.0 [facility] Mean Corpuscular Volume 92.0 fl 80.0-96.0 [facility] ([facility]) Mean Corpuscular Hemoglobin 31.0 pg 27.0-33.0 ME DENT ([facility]) Mean Corpuscular HGB Conc 33.7 g/dL 32.0-36.5 MEDE NT ([facility]) Red Cell Distribution Width 14.2 % 11.5-14.5 SC DENT ([facility]) Platelet Count, Automated 251 10 150-450 MEDE NT ([facility]) Neutrophils % 68.7 % 36.0-66.0 [facility] ([facility]) Lymph % 17.1 % 24.0-44.0 [facility]) Mccone % 11.8 % 2.0-8.0 [facility] Eos % 1.2 % 0.0-3.0 [facility] [facility] Baso % 0.9 % 0.0-1.0 [facility] [facility] Immature Granulocyte % 0.3 % 0-3.0 [facility] ([facility]) Neutrophils # 5.3 10 1.5-8.5 MED[facility] ([facility]) Nucleated Red Blood Cell % 0.0 % 0-0 MED ENT ([facility]) Lymph # 1.3 10 1.5-5.0 [facility]) Mccone # 0.9 10 0.0-0.8 [facility] Baso # 0.1 10 0.0-0.2 [facility] [facility]) Eos # 0.1 10 0.0-0.5 [facility] ([place] [facility]) ID Date Data Source [id number] 07/29/2021 12:10:00 PM EDT [facility] ([facility]) Name Value Range Interpretation Code Description Data Chica rce(s) Supporting Document(s) Magnesium [Moles/volume] in Serum or Plasma 1.9 mg/dL 1.8-2.4 [facility] ([facility]) Natriuretic peptide.B prohormone N-Terminal [Mass/volu me] in Serum or Plasma 345 pg/mL [facility] ID Date Data Source [id number] 07/29/2021 12:10:00 PM EDT [facility] ([facility]) Name Value Range Interpretation Code Description Data Chica rce(s) Supporting Document(s) Glucose, Fasting 102 mg/dL 70-100 [facility] ([facility]) Blood Urea Nitrogen 14 mg/dL 7-18 [facility] ([facility]) Creatinine For GFR 0.91 mg/dL 0.70-1.30 [facility] ([facility]) Glomerular Filtration Rate Laboratory test result [facility] <content>Units are mL/min/1.73 m2</content>
<content></content>
<content>Chronic Kidney Disease Staging per NKF:</content>
<content></content>
<content>Stage I & II GFR >=60 Normal to Mildly Decreased</content>
<content>Stage III GFR 30- 59 Moderately Decreased</content>
<content>Stage IV GFR 15-29 Severely Decreased</content>
<content>Stage V GFR <15 Very Little GFR Left</content>
<content>ESRD GFR <15 on SOFTWARE QUALITY ASSURANCE ENGINEER</content>
<content></content> Sodium Level 132 meq/L 136-145 [facility] ([facility]) Potassium Serum 4.0 meq/L 3.5-5.1 [facility] ([facility]) Chloride Level 96 meq/L 98-107 [facility] ([facility]) Carbon Dioxide Level 30 meq/L 21-32 [facility] Calcium Level 8.5 mg/dL 8.8-10.2 [facility] ([facility]) Anion Gap 6 meq/L 8-16 [facility] ([place] [facility]) Phosphorus Level 3.5 mg/dL 2.5-4.9 [facility] ([facility]) Albumin 3.1 GM/DL 3.2-5.2 [facility] ([place] [facility]) ID Date Data Source [id number] 07/29/2021 12:10:00 PM EDT [facility] ([facility] Name Value Range Interpretation Code Description Data Chica rce(s) Supporting Document(s) Reticulocyte # 58.6 10 17-77 [facility] ([facility]) Reticulocyte % 1.6 % 0.5-1.5 [facility] ([facility]) Retic Hemoglobin Equivalent 35.9 pg 24-36 [facility] ([facility]) ID Date Data Source [id number] 07/29/2021 12:10:00 PM EDT [facility] ([facility] Name Value Range Interpretation Code Description Data Chica rce(s) Supporting Document(s) Erythrocyte sedimentation rate by Westergren method 8 mm/hr 0-20 [facility] ([facility]) Magnesium [Mass/volume] in Serum or Plasma 1.9 mg/dL 1.8-2.4 [facility] ([facility]) ID Date Data Source [id number] 07/29/2021 12:10:00 PM EDT [facility] ([facility] Name Value Range Interpretation Code Description Data Chica rce(s) Supporting Document(s) Magnesium Level Laboratory test result [facility] ([facility]) Natriuretic peptide.B prohormone N-Terminal [Mass/volu me] in Serum or Plasma 345 pg/mL MED[facility] (Web Software Engineer [facility]) ID Date Data Source [id number] 07/29/2021 12:10:00 PM EDT [facility] ([facility] Name Value Range Interpretation Code Description Data Chica rce(s) Supporting Document(s) Glucose, Fasting 102 mg/dL 70-100 [facility] ([facility]) Blood Urea Nitrogen 14 mg/dL 7-18 [facility] ([facility]) Creatinine For GFR 0.91 mg/dL 0.70-1.30 [facility] ([facility]) Glomerular Filtration Rate Laboratory test result [facility] ([facility]) <content>Units are mL/min/1.73 m2</content>
<content></content>
<content>Chronic Kidney Disease Staging per NKF:</content>
<content></content>
<content>Stage I & II GFR >=60 Normal to Mildly Decreased</content>
<content>Stage III GFR 30- 59 Moderately Decreased</content>
<content>Stage IV GFR 15-29 Severely Decreased</content>
<content>Stage V GFR <15 Very Little GFR Left</content>
<content>ESRD GFR <15 on SOFTWARE QUALITY ASSURANCE ENGINEER</content>
<content></content> Sodium Level 132 meq/L 136-145 [facility] ([facility]) Chloride Level 96 meq/L 98-107 [facility] ([facility]) Carbon Dioxide Level 30 meq/L 21-32 [facility] ([facility]) Potassium Serum 4.0 meq/L 3.5-5.1 [facility] ([facility]) Calcium Level 8.5 mg/dL 8.8-10.2 [facility] ([facility]) Phosphorus Level 3.5 mg/dL 2.5-4.9 [facility] ([facility]) Anion Gap 6 meq/L 8-16 [facility] ([facility]) Albumin 3.1 GM/DL 3.2-5.2 [facility] ([facility]) ID Date Data Source [id number] 07/29/2021 07:51:00 AM EDT [facility] ([facility]) Name Value Range Interpretation Code Description Data Chica rce(s) Supporting Document(s) Hemoglobin [Mass/volume] in Blood 11.3 [facility] ([facility]) Hematocrit [Volume Fraction] of Blood by Automated count 33.5 [facility] ([facility]) Erythrocyte mean corpuscular volume [Entitic volume] by Automate d count 92.0 [facility] ([facility]) Erythrocyte mean corpuscular hemoglobin [Entitic mass] by Au tomated count 31.0 [facility] ([facility]) Erythrocyte mean corpuscular hemoglobin concentration [Mass/volume] by Automated count 33.7 [facility] ([facility]) Erythrocyte distribution width [Ratio] by Automated count 14.2 [facility] ([facility]) Platelets [#/volume] in Blood by Automated count 251 [facility] ([facility]) Platelet mean volume [Entitic volume] in Blood by Michael Giles Laboratory test result MED[facility] (Web Software Engineer [facility]) Neutrophils 68.7 [facility] ([facility]) Band form neutrophils/100 leukocytes in Body fluid by Manual count Laboratory test result [facility] ([facility]) Lymphocytes/100 leukocytes in Body fluid by Manual count 17.1 [facility] ([facility]) Monocytes 11.8 [facility] ([facility]) Fluid Body Eosinophils 1.2 [facility] ([facility]) Basophils/100 leukocytes in Blood 0.9 [facility] ([facility]) Eosinophils [#/volume] in Blood by Automated count 0.1 [facility] ([facility]) Basophils [#/volume] in Blood by Automated count 0.1 [facility] Lymphocytes [#/volume] in Blood 1.3 [facility] Monocytes [#/volume] in Blood 0.9 [facility] ([facility]) Neutrophils [#/volume] in Blood by Automated count 5.3 [facility] ([facility]) ID Date Data Source [id number] 06/17/2021 02:50:00 PM EDT [facility] ([facility]) Name Value Range Interpretation Code Description Data Chica rce(s) Supporting Document(s) White Blood Count 8.5 4.1-10.9 [facility] ([facility]) Red Blood Count 3.46 4.2-6.30 [facility] ([facility]) Hematocrit 30.9 37.0-51.0 [facility] ([facility]) Hemoglobin 10.5 12.0-18.0 [facility] ([facility]) Platelets 311 140-440 [facility] ([facility]) ID Date Data Source [id number] 06/17/2021 02:50:00 PM EDT [facility] ([facility]) Name Value Range Interpretation Code Description Data Chica rce(s) Supporting Document(s) Triglycerides 39 30-150 [facility] ([facility]) Cholesterol 103 131-200 [facility] ([facility]) HDL 81 35-60 [facility] ([facility]) Cholesterol in LDL [Mass/volume] in Serum or Plasma by calculation Laboratory test result 50-159 [facility] ([facility]) Chol/HDL Ratio Laboratory test result [facility] ([facility]) ID Date Data Source [id number] 06/17/2021 02:50:00 PM EDT [facility] ([facility]) Name Value Range Interpretation Code Description Data Chica rce(s) Supporting Document(s) Albumin [Mass/volume] in Serum or Plasma 3.1 [facility] ([facility]) Carbon dioxide, total [Moles/volume] in Serum or Plasma 33 [facility] ([facility]) Calcium [Mass/volume] in Serum or Plasma 9.0 [facility] ([facility]) Alanine aminotransferase [Enzymatic activity/volume] in Serum or Pl asma 29 [facility] ([facility]) Potassium [Moles/volume] in Serum or Plasma 4.4 [facility] ([facility]) Alkaline phosphatase [Enzymatic activity/volume] in Serum or Plasma 7 6 [facility] ([facility]) Chloride [Moles/volume] in Serum or Plasma 94 [facility] ([facility]) Protein [Mass/volume] in Serum or Plasma 6.3 [facility] ([facility]) Sodium 129 [facility] ([facility]) Aspartate aminotransferase [Enzymatic activity/volume] in Serum or Plasma 36 [facility] ([facility]) Urea nitrogen [Mass/volume] in Serum or Plasma 10 [facility] ([facility]) Glucose 92 74-99 [facility] ([facility]) Creatinine For GFR 0.9 [facility] ([facility]) ID Date Data Source [id number] 06/06/2021 09:13:00 AM EDT [facility] ([facility]) Name Value Range Interpretation Code Description Data Chica rce(s) Supporting Document(s) Thyrotropin [Units/volume] in Serum or Plasma by Detec tion limit <= 0.05 mIU/L 2.94 uIU/mL 0.36-3.74 [facility] ([facility] ) ID Date Data Source [id number] 06/06/2021 09:13:00 AM EDT [facility] ([facility]) Name Value Range Interpretation Code Description Data Chica rce(s) Supporting Document(s) Cholesterol [Mass/volume] in Serum or Plasma 103 mg/dL 131-200 [facility] ([facility]) Triglyceride [Mass/volume] in Serum or Plasma 39 mg/dL 30-150 [facility] ([facility]) Cholesterol in HDL [Mass/volume] in Serum or Plasma 81 mg/dL 35-60 [facility] ([facility]) Cholesterol in LDL [Mass/volume] in Serum or Plasma by calculation Laboratory test result 50-159 [facility] ([facility] ) ID Date Data Source [id number] 06/06/2021 09:13:00 AM EDT [facility] ([facility]) Name Value Range Interpretation Code Description Data [place] rce(s) Supporting Document(s) Glucose [Mass/volume] in Serum or Plasma 92 mg/dL 74-99 [facility] ([facility]) 100-125 mg/dL PRE-DIABETES/FASTING >126 mg/dL DIABETES/FASTING Urea nitrogen [Mass/volume] in Serum or Plasma 10 mg/dL 7-18 [facility] ([facility]) Creatinine 0.9 mg/dL 0.6-1.3 [facility] Sodium [Moles/volume] in Serum or Plasma 129 meq/L 136-145 [facility] ([facility]) NOTE: LYTES,ALBUMIN,T.PROTEIN VERIFIED Chloride [Moles/volume] in Serum or Plasma 94 meq/L 98-107 [facility] ([facility]) Potassium [Moles/volume] in Serum or Plasma 4.4 meq/L 3.5-5.1 [facility] ([facility]) Carbon dioxide, total [Moles/volume] in Serum or Plasma 33 meq/L 21 -32 [facility] ([facility]) Total Bilirubin 1.1 mg/dL 0.2-1.0 [facility] ([facility]) Alkaline phosphatase isoenzyme [Units/volume] in Serum or Pl asma 76 mg/dL 46-116 [facility] ([facility]) Calcium [Mass/volume] in Serum or Plasma 9.0 mg/dL 8.5-10.1 [facility] ([facility]) Aspartate aminotransferase [Enzymatic activity/volume] in Serum or Plasma 36 U/L 15-37 [facility] ([facility] ) Alanine aminotransferase [Enzymatic activity/volume] in Seru m or Plasma 29 U/L 12-78 [facility] ([facility]) Albumin [Mass/volume] in Serum or Plasma 3.1 g/dL 3.4-5.0 [facility] ([facility]) A/G Ratio 0.97 CALC 1.00-1.90 [facility] Proteinase 3 Ab [Units/volume] in Serum 6.3 g/dL 6.4-8.2 [facility] ([facility]) Glomerular filtration rate/1.73 sq M pre dicted among non-blacks [Volume Rate/Area] in Serum or Plasma by Creatinine-based formula (MDRD) Laboratory test result [facility] Glomerular filtration rate/1.73 sq M pre dicted among blacks [Volume Rate/Area] in Serum or Plasma by Creatinine-based formula (MDRD) Laboratory test result [facility] <content>CHRONIC KIDNEY DISEASE STAGING PER NKF</content>
<content></content>
<content>STAGE I & II GFR >= 60 NORMAL TO MILDLY DECREASED</content>
<content>STAGE III GFR 30-59 MODERATELY DECREASED</content>
<content>STAGE IV GFR 15-29 SEVERELY DECREASED</content>
<content>STAGE V GFR <15 VERY LITTLE GFR LEFT</content>
<content>ESRD GFR <15 ON SOFTWARE QUALITY ASSURANCE ENGINEER</content>
<content></content> ID Date Data Source [id number] 06/06/2021 09:13:00 AM EDT [facility] ([facility]) Name Value Range Interpretation Code Description Data Chica rce(s) Supporting Document(s) Leukocytes [#/volume] in Blood by Automated count 8.5 x10*3/UL 4.1-10 .9 [facility] ([facility]) NOTE: CBC VERIFIED Erythrocytes [#/volume] in Blood by Automated count 3.46 x10*6/UL 4.2 0-6.30 [facility] Hemoglobin [Mass/volume] in Blood 10.5 g/dL 12.0-18.0 [facility] Hematocrit [Volume Fraction] of Blood by Automated count 30.9 % 3 7.0-51.0 [facility] ([facility]) MCV 89.1 fL 80.0-97.0 [facility] [facility]) MCH 30.4 pg 26.0-32.0 [facility] ([facility]) MCHC 34.1 g/dL 31.0-38.0 [facility] ([facility]) Erythrocyte distribution width [Ratio] by Automated count 13.2 % 11.6-13.7 [facility] Platelets [#/volume] in Blood by Automated count 311 x10*3/UL 140-440 [facility] ([facility]) MPV 6.9 FL 7.8-11.0 [facility] [facility]) Lymph % 15.3 % 10.0-58.5 [facility] ([place] [facility]) Mid % 4.2 % 1.7-9.3 [facility] [facility]) Neut % 80.5 % 37.0-92.0 [facility] [facility] Lymph # 1.3 x10*3/UL 0.6-4.1 [facility] ([facility]) Neut # 6.9 x10*3/UL 2.0-7.8 [facility] ([facility]) Mid # 0.3 x10*3/UL 0.1-0.6 [facility] ([facility]) ID Date Data Source [id number] 03/01/2021 01:25:00 PM EDT [facility] ([facility]) Name Value Range Interpretation Code Description Data Chica rce(s) Supporting Document(s) Thyrotropin [Units/volume] in Serum or Plasma by Detec tion limit <= 0.05 mIU/L 1.950 uIU/ML 0.358-3.740 [facility] ([facility] ) ID Date Data Source [id number] 03/01/2021 01:25:00 PM EDT [facility] ([facility]) Name Value Range Interpretation Code Description Data Chica rce(s) Supporting Document(s) White Blood Count 6.2 10 4.0-10.0 [facility] ([facility]) Red Blood Count 3.38 10 4.30-6.10 [facility] ([facility]) Hemoglobin 10.7 g/dL 13.5-17.5 [facility] ([facility]) Hematocrit 31.6 % 42.0-52.0 [facility] Mean Corpuscular Volume 93.5 fl 80.0-96.0 [facility] ([facility]) Mean Corpuscular Hemoglobin 31.7 pg 27.0-33.0 SC DENT ([facility]) Mean Corpuscular HGB Conc 33.9 g/dL 32.0-36.5 MEDE NT ([facility]) Red Cell Distribution Width 12.7 % 11.5-14.5 SC DENT ([facility]) Platelet Count, Automated 265 10 150-450 MEDE NT ([facility]) Neutrophils % 62.7 % 36.0-66.0 [facility] ([facility]) Lymph % 21.6 % 24.0-44.0 [facility] [facility]) Mccone % 12.1 % 2.0-8.0 [facility] [facility] Eos % 2.3 % 0.0-3.0 [facility] [facility] Baso % 0.8 % 0.0-1.0 [facility] Immature Granulocyte % 0.5 % 0-3.0 [facility] ([facility]) Nucleated Red Blood Cell % 0.0 % 0-0 MED ENT ([facility]) Neutrophils # 3.9 10 1.5-8.5 [facility] ([facility]) Mccone # 0.8 10 0.0-0.8 [facility] [facility] Eos # 0.1 10 0.0-0.5 [facility] [facility] Lymph # 1.3 10 1.5-5.0 [facility] [facility] Baso # 0.1 10 0.0-0.2 [facility] [facility] ID Date Data Source [id number] 03/01/2021 01:25:00 PM EDT [facility] ([facility]) Name Value Range Interpretation Code Description Data Chica rce(s) Supporting Document(s) Triglycerides Level 58 mg/dL [facility] ([facility]) Cholesterol Level 108 mg/dL [facility] ([facility]) LDL Cholesterol 7 mg/dL [facility] ([facility]) HDL Cholesterol 89 mg/dL [facility] ([facility]) Non-HDL-C 19 mg/dL [facility] [facility] Cholesterol Risk Ratio 1.213 [facility] ([facility]) ID Date Data Source [id number] 03/01/2021 01:25:00 PM EDT [facility] ([facility]) Name Value Range Interpretation Code Description Data Chica rce(s) Supporting Document(s) Glucose, Fasting 92 mg/dL 70-100 [facility] ([facility]) Blood Urea Nitrogen 11 mg/dL 7-18 [facility] ([facility]) Creatinine For GFR 0.76 mg/dL 0.70-1.30 [facility] ([facility]) Glomerular Filtration Rate Laboratory test result [facility] ([facility]) <content>Units are mL/min/1.73 m2</content>
<content></content>
<content>Chronic Kidney Disease Staging per NKF:</content>
<content></content>
<content>Stage I & II GFR >=60 Normal to Mildly Decreased</content>
<content>Stage III GFR 30- 59 Moderately Decreased</content>
<content>Stage IV GFR 15-29 Severely Decreased</content>
<content>Stage V GFR <15 Very Little GFR Left</content>
<content>ESRD GFR <15 on SOFTWARE QUALITY ASSURANCE ENGINEER</content>
<content></content> Sodium Level 128 meq/L 136-145 [facility] ([facility]) Potassium Serum 3.8 meq/L 3.5-5.1 [facility] ([facility]) Chloride Level 93 meq/L 98-107 [facility] ([facility]) Carbon Dioxide Level 29 meq/L 21-32 [facility] ([facility]) Anion Gap 6 meq/L 8-16 [facility] ([place] [facility]) Calcium Level 8.6 mg/dL 8.8-10.2 [facility] ([facility]) Ast/Sgot 41 U/L 7-37 [facility] ([place] [facility]) Alt/SGPT 32 U/L 12-78 [facility] ([place] [facility]) Bilirubin,Total 1.7 mg/dL 0.2-1.0 [facility] ([facility]) Alkaline Phosphatase 72 U/L 45-117 [facility] ([facility]) Total Protein 6.5 GM/DL 6.4-8.2 [facility] ([facility]) Albumin 3.5 GM/DL 3.2-5.2 [facility] ([place] [facility]) Albumin/Globulin Ratio 1.2 [facility] ([facility]) ID Date Data Source [id number] 11/13/2020 01:10:00 PM EST [facility] ([facility] Name Value Range Interpretation Code Description Data Chica rce(s) Supporting Document(s) Magnesium [Mass/volume] in Serum or Plasma 2.4 mg/dL 1.8-2.4 [facility] ([facility]) Natriuretic peptide.B prohormone N-Terminal [Mass/volu me] in Serum or Plasma 140 pg/mL [facility] ([employer] [facility]) ID Date Data Source [id number] 11/13/2020 01:10:00 PM EST [facility] ([facility] Name Value Range Interpretation Code Description Data Chica rce(s) Supporting Document(s) Glucose, Fasting 102 mg/dL 70-100 [facility] ([facility]) Blood Urea Nitrogen 16 mg/dL 7-18 [facility] ([facility]) Glomerular Filtration Rate Laboratory test result [facility] ([facility]) <content>Units are mL/min/1.73 m2</content>
<content></content>
<content>Chronic Kidney Disease Staging per NKF:</content>
<content></content>
<content>Stage I & II GFR >=60 Normal to Mildly Decreased</content>
<content>Stage III GFR 30- 59 Moderately Decreased</content>
<content>Stage IV GFR 15-29 Severely Decreased</content>
<content>Stage V GFR <15 Very Little GFR Left</content>
<content>ESRD GFR <15 on SOFTWARE QUALITY ASSURANCE ENGINEER</content>
<content></content> Creatinine For GFR 1.17 mg/dL 0.70-1.30 [facility] ([facility]) Sodium Level 132 meq/L 136-145 [facility] ([facility]) Potassium Serum 3.9 meq/L 3.5-5.1 [facility] ([facility]) Chloride Level 96 meq/L 98-107 [facility] ([address] ogy [facility]) Carbon Dioxide Level 34 meq/L 21-32 [facility] ([facility]) Anion Gap 2 meq/L 8-16 [facility] Calcium Level 9.1 mg/dL 8.8-10.2 [facility] ([facility]) Ast/Sgot 40 U/L 7-37 [facility] ([facility]iology [facility]) Alkaline Phosphatase 80 U/L 45-117 [facility] ([facility]) Alt/SGPT 31 U/L 12-78 [facility] ([facility]) Bilirubin,Total 1.3 mg/dL 0.2-1.0 [facility] ([facility]) Total Protein 6.6 GM/DL 6.4-8.2 [facility] ([facility]) Albumin/Globulin Ratio 1.1 [facility] ([facility]) Albumin 3.4 GM/DL 3.2-5.2 [facility] ([facility]) ID Date Data Source [id number] 11/13/2020 01:10:00 PM EST [facility] ([facility]) Name Value Range Interpretation Code Description Data Chica rce(s) Supporting Document(s) Magnesium [Moles/volume] in Serum or Plasma 2.4 mg/dL 1.8-2.4 [facility] [facility] Natriuretic peptide.B prohormone N-Terminal [Mass/volu me] in Serum or Plasma 140 pg/mL [facility] ([facility] ) ID Date Data Source [id number] 11/13/2020 01:10:00 PM EST [facility] ([facility]) Name Value Range Interpretation Code Description Data Chica rce(s) Supporting Document(s) Glucose, Fasting 102 mg/dL 70-100 [facility] ([facility]) Blood Urea Nitrogen 16 mg/dL 7-18 [facility] ([facility]) Creatinine For GFR 1.17 mg/dL 0.70-1.30 [facility] ([facility]) Glomerular Filtration Rate Laboratory test result [facility] [facility] <content>Units are mL/min/1.73 m2</content>
<content></content>
<content>Chronic Kidney Disease Staging per NKF:</content>
<content></content>
<content>Stage I & II GFR >=60 Normal to Mildly Decreased</content>
<content>Stage III GFR 30- 59 Moderately Decreased</content>
<content>Stage IV GFR 15-29 Severely Decreased</content>
<content>Stage V GFR <15 Very Little GFR Left</content>
<content>ESRD GFR <15 on SOFTWARE QUALITY ASSURANCE ENGINEER</content>
<content></content> Sodium Level 132 meq/L 136-145 [facility] ([facility]) Carbon Dioxide Level 34 meq/L 21-32 [facility] Potassium Serum 3.9 meq/L 3.5-5.1 [facility] ([facility]) Chloride Level 96 meq/L 98-107 [facility] ([facility] Anion Gap 2 meq/L 8-16 [facility] ([place] [facility]) Calcium Level 9.1 mg/dL 8.8-10.2 [facility] ([facility]) Ast/Sgot 40 U/L 7-37 [facility] ([place] [facility]) Alt/SGPT 31 U/L 12-78 [facility] ([place] [facility]) Alkaline Phosphatase 80 U/L 45-117 [facility] Bilirubin,Total 1.3 mg/dL 0.2-1.0 [facility] Albumin/Globulin Ratio 1.1 [facility] [facility] Total Protein 6.6 GM/DL 6.4-8.2 [facility] Albumin 3.4 GM/DL 3.2-5.2 [facility] ([place] [facility]) ID Date Data Source [id number] 09/10/2020 09:35:00 AM EST [facility] ([facility]) Name Value Range Interpretation Code Description Data Chica rce(s) Supporting Document(s) Magnesium [Moles/volume] in Serum or Plasma 2.2 mg/dL 1.8-2.4 [facility] [facility] Natriuretic peptide.B prohormone N-Terminal [Mass/volu me] in Serum or Plasma 308 pg/mL [facility] ([facility] ) ID Date Data Source [id number] 09/10/2020 09:35:00 AM EST [facility] ([facility]) Name Value Range Interpretation Code Description Data Chica rce(s) Supporting Document(s) Glucose, Fasting 81 mg/dL 70-100 [facility] ([facility]) Blood Urea Nitrogen 13 mg/dL 7-18 [facility] ([facility]) Glomerular Filtration Rate Laboratory test result [facility] ([facility]) <content>Units are mL/min/1.73 m2</content>
<content></content>
<content>Chronic Kidney Disease Staging per NKF:</content>
<content></content>
<content>Stage I & II GFR >=60 Normal to Mildly Decreased</content>
<content>Stage III GFR 30- 59 Moderately Decreased</content>
<content>Stage IV GFR 15-29 Severely Decreased</content>
<content>Stage V GFR <15 Very Little GFR Left</content>
<content>ESRD GFR <15 on SOFTWARE QUALITY ASSURANCE ENGINEER</content>
<content></content> Creatinine For GFR 0.89 mg/dL 0.70-1.30 [facility] ([facility]) Chloride Level 99 meq/L 98-107 [facility] ([facility]) Potassium Serum 4.6 meq/L 3.5-5.1 [facility] ([facility]) Sodium Level 133 meq/L 136-145 [facility] ([facility]) Anion Gap 6 meq/L 8-16 [facility] ([place] [facility]) Carbon Dioxide Level 28 meq/L 21-32 [facility] ([facility]) Ast/Sgot 47 U/L 7-37 [facility] ([place] [facility]) Calcium Level 9.0 mg/dL 8.8-10.2 [facility] ([facility]) Bilirubin,Total 1.8 mg/dL 0.2-1.0 [facility] ([facility]) Alt/SGPT 33 U/L 12-78 [facility] [facility]) Alkaline Phosphatase 74 U/L 45-117 [facility] ([place]) Total Protein 6.3 GM/DL 6.4-8.2 [facility] [facility]) Albumin 3.4 GM/DL 3.2-5.2 [facility] [facility] Albumin/Globulin Ratio 1.2 [facility] ([facility]) ID Date Data Source [id number] 09/10/2020 09:35:00 AM EST [facility] ([facility] Name Value Range Interpretation Code Description Data Chica rce(s) Supporting Document(s) Natriuretic peptide.B prohormone N-Terminal [Mass/volu me] in Serum or Plasma 308 pg/mL [facility] ([employer] [facility]) Magnesium [Mass/volume] in Serum or Plasma 2.2 mg/dL 1.8-2.4 [facility] ([facility]) ID Date Data Source [id number] 09/10/2020 09:35:00 AM EST [facility] ([facility] Name Value Range Interpretation Code Description Data Chica rce(s) Supporting Document(s) Blood Urea Nitrogen 13 mg/dL 7-18 [facility] ([facility]) Glucose, Fasting 81 mg/dL 70-100 [facility] ([facility] o[facility]) Sodium Level 133 meq/L 136-145 [facility] ([facility]) Glomerular Filtration Rate Laboratory test result [facility] ([facility]) <content>Units are mL/min/1.73 m2</content>
<content></content>
<content>Chronic Kidney Disease Staging per NKF:</content>
<content></content>
<content>Stage I & II GFR >=60 Normal to Mildly Decreased</content>
<content>Stage III GFR 30- 59 Moderately Decreased</content>
<content>Stage IV GFR 15-29 Severely Decreased</content>
<content>Stage V GFR <15 Very Little GFR Left</content>
<content>ESRD GFR <15 on SOFTWARE QUALITY ASSURANCE ENGINEER</content>
<content></content> Creatinine For GFR 0.89 mg/dL 0.70-1.30 [facility] ([facility]) Chloride Level 99 meq/L 98-107 [facility] ([facility]) Potassium Serum 4.6 meq/L 3.5-5.1 [facility] ([facility]) Carbon Dioxide Level 28 meq/L 21-32 [facility] ([facility]) Calcium Level 9.0 mg/dL 8.8-10.2 [facility] ([facility]) Anion Gap 6 meq/L 8-16 [facility] ([facility]) Alkaline Phosphatase 74 U/L 45-117 [facility] ([facility]) Ast/Sgot 47 U/L 7-37 [facility] Alt/SGPT 33 U/L 12-78 [facility] (Cardiology A [facility]) Total Protein 6.3 GM/DL 6.4-8.2 [facility] ([facility]) Albumin 3.4 GM/DL 3.2-5.2 [facility] Bilirubin,Total 1.8 mg/dL 0.2-1.0 [facility] ([facility]) Albumin/Globulin Ratio 1.2 [facility] ([facility]) ID Date Data Source [id number] 08/03/2020 10:54:00 AM EDT [facility] ([facility] Name Value Range Interpretation Code Description Data Chica rce(s) Supporting Document(s) Natriuretic peptide.B prohormone N-Terminal [Mass/volu me] in Serum or Plasma 197 pg/mL [facility] ([employer] [facility]) Magnesium [Mass/volume] in Serum or Plasma 1.8 mg/dL 1.8-2.4 [facility] ([facility]) ID Date Data Source [id number] 08/03/2020 10:54:00 AM EDT [facility] ([facility] Name Value Range Interpretation Code Description Data Chica rce(s) Supporting Document(s) Glucose, Fasting 97 mg/dL 70-100 [facility] ([facility]) Creatinine For GFR 0.81 mg/dL 0.70-1.30 [facility] ([facility]) Blood Urea Nitrogen 10 mg/dL 7-18 [facility] ([facility]) Glomerular Filtration Rate Laboratory test result [facility] ([facility]) <content>Units are mL/min/1.73 m2</content>
<content></content>
<content>Chronic Kidney Disease Staging per NKF:</content>
<content></content>
<content>Stage I & II GFR >=60 Normal to Mildly Decreased</content>
<content>Stage III GFR 30- 59 Moderately Decreased</content>
<content>Stage IV GFR 15-29 Severely Decreased</content>
<content>Stage V GFR <15 Very Little GFR Left</content>
<content>ESRD GFR <15 on SOFTWARE QUALITY ASSURANCE ENGINEER</content>
<content></content> Sodium Level 129 meq/L 136-145 [facility] ([facility]) Potassium Serum 4.1 meq/L 3.5-5.1 [facility] ([facility]) Carbon Dioxide Level 28 meq/L 21-32 [facility] ([facility]) Chloride Level 94 meq/L 98-107 [facility] ([facility]) Anion Gap 7 meq/L 8-16 [facility] Calcium Level 9.0 mg/dL 8.8-10.2 [facility] ([facility]) Ast/Sgot 43 U/L 7-37 [facility] Alt/SGPT 34 U/L 12-78 [facility] Alkaline Phosphatase 84 U/L 45-117 [facility] ([facility]) Bilirubin,Total 1.5 mg/dL 0.2-1.0 [facility] ([facility]) Total Protein 6.5 GM/DL 6.4-8.2 [facility] ([facility]) Albumin 3.2 GM/DL 3.2-5.2 [facility] ([facility]) Albumin/Globulin Ratio 1.0 [facility] ([facility]) ID Date Data Source [id number] 08/03/2020 10:54:00 AM EDT [facility] ([facility]) Name Value Range Interpretation Code Description Data Chica rce(s) Supporting Document(s) Magnesium [Moles/volume] in Serum or Plasma 1.8 mg/dL 1.8-2.4 [facility] ([place] [facility] Natriuretic peptide.B prohormone N-Terminal [Mass/volu me] in Serum or Plasma 197 pg/mL [facility] ([place] [facility] ID Date Data Source [id number] 08/03/2020 10:54:00 AM EDT [facility] Name Value Range Interpretation Code Description Data Chica rce(s) Supporting Document(s) Glucose, Fasting 97 mg/dL 70-100 [facility] Creatinine For GFR 0.81 mg/dL 0.70-1.30 [facility] ([facility]) Blood Urea Nitrogen 10 mg/dL 7-18 [facility] ([facility]) Glomerular Filtration Rate Laboratory test result [facility] ([facility]) <content>Units are mL/min/1.73 m2</content>
<content></content>
<content>Chronic Kidney Disease Staging per NKF:</content>
<content></content>
<content>Stage I & II GFR >=60 Normal to Mildly Decreased</content>
<content>Stage III GFR 30- 59 Moderately Decreased</content>
<content>Stage IV GFR 15-29 Severely Decreased</content>
<content>Stage V GFR <15 Very Little GFR Left</content>
<content>ESRD GFR <15 on SOFTWARE QUALITY ASSURANCE ENGINEER</content>
<content></content> Sodium Level 129 meq/L 136-145 [facility] ([facility]) Potassium Serum 4.1 meq/L 3.5-5.1 [facility] ([facility]) Anion Gap 7 meq/L 8-16 [facility] ([place] [facility]) Chloride Level 94 meq/L 98-107 [facility] ([facility]) Carbon Dioxide Level 28 meq/L 21-32 [facility] ([facility]) Alt/SGPT 34 U/L 12-78 [facility] ([place] [facility]) Calcium Level 9.0 mg/dL 8.8-10.2 [facility] ([facility]) Ast/Sgot 43 U/L 7-37 [facility] ([place] [facility]) Alkaline Phosphatase 84 U/L 45-117 [facility] ([facility]) Total Protein 6.5 GM/DL 6.4-8.2 [facility] ([facility]) Bilirubin,Total 1.5 mg/dL 0.2-1.0 [facility] ([facility]) Albumin 3.2 GM/DL 3.2-5.2 [facility] ([facility]) Albumin/Globulin Ratio 1.0 [facility] ([facility]) Procedure Social History Code Duration Value Status Description Data Source(s ) Smoking 04/11/2021 12:00:00 AM EDT Former Smoker completed Former Smoker [email or web address] ([facility]) Smoking 10/11/2020 12:00:00 AM EST Former Smoker completed Former Smoker [email or web address] ([facility]) Smoking 08/03/2020 12:00:00 AM EDT Former Smoker completed Former Smoker [email or web address] ([facility]) Vital Signs ID Date Data Source UNK Name Value Range Interpretation Code Description Data Source(s) Systolic blood pressure--sitting 113 mm[Hg] 113 mm[Hg] [facility] ([facility]) Medium cuff, Ra Diastolic blood pressure--sitting 54 mm[Hg] 54 mm[Hg] MEDENT ([facility]) Medium cuff, Ra Body weight 107.00 [lb_av] 107.00 [lb_av] MEDEN T ([facility]) Body mass index (BMI) [Ratio] 14.9 kg/m2 14.9 k g/m2 MEDENT ([facility]) Heart rate 76 /min 76 /min MEDENT ([facility]) regular Respiratory rate 18 /min 18 /min MEDENT ( [facility]) Systolic blood pressure--supine 120 mm[Hg] 120 mm[Hg] MEDENT ([facility]) Diastolic blood pressure--supine 56 mm[Hg] 56 mm[Hg] MEDENT ([facility]) Body height 71 [in_i] 71 [in_i] [facility] 5'11" Diastolic blood pressure--supine 68 mm[Hg] 68 mm[Hg] MEDENT ([facility]) Body height 71 [in_i] 71 [in_i] MEDENT ([facility]) 5'11" Respiratory rate 16 /min 16 /min MEDENT ( [facility]) Body weight 107.00 [lb_av] 107.00 [lb_av] MEDEN T ([facility]) Body mass index (BMI) [Ratio] 14.9 kg/m2 14.9 k g/m2 MEDENT ([facility]) Heart rate 68 /min 68 /min MEDENT ([facility]) regular Systolic blood pressure--sitting 148 mm[Hg] 148 mm[Hg] MEDENT ([facility]) Medium cuff, Ra Diastolic blood pressure--sitting 66 mm[Hg] 66 mm[Hg] MEDENT ([facility]) Medium cuff, Ra Systolic blood pressure--supine 162 mm[Hg] 162 mm[Hg] MEDENT ([facility]) Systolic blood pressure 104 mm[Hg] 104 mm[Hg] M EDENT ([facility], ) Diastolic blood pressure 59 mm[Hg] 59 mm[Hg] MEDENT ([facility], ) Heart rate 72 /min 72 /min MEDENT ([facility]) Body temperature 98.4 [degF] 98.4 [degF] MEDENT ([facility]) Body height 60 [in_i] 60 [in_i] MEDENT ([facility]) 5'0" Body weight 112.12 [lb_av] 112.12 [lb_av] MEDEN T ([facility]) Body mass index (BMI) [Ratio] 21.9 kg/m2 21.9 k g/m2 MEDENT ([facility]) [place] body weight 106 [lb_av] 106 [lb_av] MEDEN T ([facility]) Body weight 50.860 kg 50.860 kg [facility] Body surface area Derived from formula 1.46 m2 1.46 m2 [facility] ([facility]) Body weight 108.25 [lb_av] 108.25 [lb_av] MEDEN T ([facility]) Body mass index (BMI) [Ratio] 16.7 kg/m2 16.7 k g/m2 MEDENT ([facility]) Systolic blood pressure 130 mm[Hg] 130 mm[Hg] M EDENT ([facility]) Diastolic blood pressure 60 mm[Hg] 60 mm[Hg] MEDENT ([facility]) Body height 67.50 [in_i] 67.50 [in_i] [facility] ( [facility] 5'7.50" Body height 68.5 [in_i] 68.5 [in_i] eCW1 ([facility]) Heart rate 64 /min 64 /min eCW1 (Replaced by [facility]) Respiratory rate 18 /min 18 /min eCW1 ([facility]) Body temperature 97.3 [degF] 97.3 [degF] eCW1 ( [facility]) Body weight 112 [lb_av] 112 [lb_av] eCW1 ([facility]) Body mass index (BMI) [Ratio] 16.78 kg/m2 16.78 kg/m2 eCW1 ([facility]) Systolic blood pressure 111 mm[Hg] 111 mm[Hg] e CW1 ([facility]) Diastolic blood pressure 66 mm[Hg] 66 mm[Hg] eCW1 ([facility]) Oxygen saturation in Arterial blood by Pulse oximetry 98 % 98 % MEDENT ([facility]) Respiratory rate 16 /min 16 /min MEDENT ( [facility]) Systolic blood pressure--sitting 128 mm[Hg] 128 mm[Hg] MEDENT ([facility]) Medium cuff, Ra Diastolic blood pressure--sitting 54 mm[Hg] 54 mm[Hg] MEDENT ([facility]) Medium cuff, Ra Systolic blood pressure--supine 136 mm[Hg] 136 mm[Hg] MEDENT ([facility]) Diastolic blood pressure--supine 63 mm[Hg] 63 mm[Hg] MEDENT ([facility]) Oxygen saturation in Arterial blood by Pulse oximetry --post exerci se 93 % 93 % MEDENT ([facility]) Body weight 116.00 [lb_av] 116.00 [lb_av] MEDEN T ([facility]) Body height 71 [in_i] 71 [in_i] MEDENT ([facility]) 5'11" Body mass index (BMI) [Ratio] 16.2 kg/m2 16.2 k g/m2 MEDENT ([facility]) Heart rate 68 /min 68 /min MEDENT ([facility]) regular with occasional irregularity Systolic blood pressure 136 mm[Hg] 136 mm[Hg] M EDENT ([facility]) Diastolic blood pressure 62 mm[Hg] 62 mm[Hg] MEDENT ([facility]) Heart rate 68 /min 68 /min MEDENT ([facility]) Body height 67.50 [in_i] 67.50 [in_i] MEDENT ( [facility] 5'7.50" Body weight 116.00 [lb_av] 116.00 [lb_av] MEDEN T ([facility]) Body mass index (BMI) [Ratio] 17.9 kg/m2 17.9 k g/m2 MEDENT ([facility]) Body weight 113.00 [lb_av] 113.00 [lb_av] MEDEN T ([facility]) Systolic blood pressure--sitting 116 mm[Hg] 116 mm[Hg] MEDENT ([facility]) Medium cuff, Ra Heart rate 68 /min 68 /min MEDENT ([facility]) regular Diastolic blood pressure--sitting 56 mm[Hg] 56 mm[Hg] MEDENT ([facility]) Medium cuff, Ra Systolic blood pressure--supine 134 mm[Hg] 134 mm[Hg] MEDENT ([facility]) Diastolic blood pressure--supine 60 mm[Hg] 60 mm[Hg] MEDENT ([facility]) Body height 71 [in_i] 71 [in_i] MEDENT ([facility]) 5'11" Body mass index (BMI) [Ratio] 15.8 kg/m2 15.8 k g/m2 MEDENT ([facility]) Respiratory rate 16 /min 16 /min MEDENT ( [facility]) Respiratory rate 17 /min 17 /min eCW1 ([facility]) Body weight 120 [lb_av] 120 [lb_av] eCW1 ([facility]) Body height 68.5 [in_i] 68.5 [in_i] eCW1 ([facility]) Body mass index (BMI) [Ratio] 17.98 kg/m2 17.98 kg/m2 eCW1 ([facility]) Heart rate 63 /min 63 /min eCW1 (Replaced by [facility]) Body temperature 98.5 [degF] 98.5 [degF] eCW1 ( [facility]) Systolic blood pressure 144 mm[Hg] 144 mm[Hg] e CW1 ([facility]) Diastolic blood pressure 80 mm[Hg] 80 mm[Hg] eCW1 ([facility]) Systolic blood pressure--sitting 172 mm[Hg] 172 mm[Hg] MEDENT ([facility]) Medium cuff, Ra Heart rate 64 /min 64 /min MEDENT ([facility]) regular Diastolic blood pressure--supine 80 mm[Hg] 80 mm[Hg] MEDENT ([facility]) Body weight 115.00 [lb_av] 115.00 [lb_av] MEDEN T ([facility]) Body height 71 [in_i] 71 [in_i] MEDENT ([facility] 5'11" Body mass index (BMI) [Ratio] 16.0 kg/m2 16.0 k g/m2 MEDENT ([facility]) Respiratory rate 16 /min 16 /min MEDENT ( [facility]) Diastolic blood pressure--sitting 78 mm[Hg] 78 mm[Hg] MEDENT ([facility]) Medium cuff, Ra Systolic blood pressure--supine 170 mm[Hg] 170 mm[Hg] MEDDEJAH ([facility]) Oxygen saturation in Arterial blood by Pulse oximetry 95 % 95 % ROBEL ([facility]) Oxygen saturation in Arterial blood by Pulse oximetry --post exerci se 93 % 93 % ROBEL ([facility])
[2021-09-12] MEDS ORDERED: fentaNYL 100 MCG/2 ML INJECTION (J3010) As Ordered ONE (10:18)
--- NOTE | 2021-09-12 10:26 | ROOR ---
Patient Name: Joselito Palm Procedure Date: 09/12/2021 10:15 AM Date of : 1940 Age: 80 Room: [facility] Gender: Male Note Status: Finalized Procedure: Upper GI endoscopy Indications: Dysphagia Providers: Elbert Mckeon Jr, MD Referring MD: Christopher Mensah Jr, Md Requesting Provider: Medicines: Propofol per Anesthesia Complications: No immediate complications. Procedure: Pre-Anesthesia Assessment: - Prior to the procedure, a History and Physical was performed, and patient medications and allergies were reviewed. The patient is competent. The risks and benefits of the procedure and the sedation options and risks were discussed with the patient. All questions were answered and informed consent was obtained. Patient identification and proposed procedure were verified by the physician and the nurse in the pre-procedure area and in the procedure room. Mental Status Examination: alert and oriented. Airway Examination: normal oropharyngeal airway and neck mobility. Respiratory Examination: clear to auscultation. CV Examination: normal. ASA Grade Assessment: II - A patient with mild systemic disease. After reviewing the risks and benefits, the patient was deemed in satisfactory condition to undergo the procedure. The anesthesia plan was to use moderate sedation / analgesia (conscious sedation). Immediately prior to administration of medications, the patient was re-assessed for adequacy to receive sedatives. The heart rate, respiratory rate, oxygen saturations, blood pressure, adequacy of pulmonary ventilation, and response to care were monitored throughout the procedure. The physical status of the patient was re-assessed after the procedure. The Endoscope was introduced through the mouth, and advanced to the second part of duodenum. The upper GI endoscopy was accomplished without difficulty. The patient tolerated the procedure well. Findings: The upper third of the esophagus, middle third of the esophagus and lower third of the esophagus were normal. The cardia, gastric fundus, gastric body, gastric antrum, prepyloric region of the stomach and pylorus were normal. The duodenal bulb, first portion of the duodenum and second portion of the duodenum were normal. Impression: - Normal upper third of esophagus, middle third of esophagus and lower third of esophagus. - Normal cardia, gastric fundus, gastric body, antrum, prepyloric region of the stomach and pylorus. - Normal duodenal bulb, first portion of the duodenum and second portion of the duodenum. - No specimens collected. Recommendation: - Discharge patient to home (ambulatory). - Return to my office PRN. Procedure Code(s): --- Professional --- 87281, Esophagogastroduodenoscopy, flexible, transoral; diagnostic, including collection of specimen(s) by brushing or washing, when performed (separate procedure) Diagnosis Code(s): --- Professional --- R13.10, Dysphagia, unspecified CPT copyright 2019 [employer]. All rights reserved. The codes documented in this report are preliminary and upon retail custodial associate review may be revised to meet current compliance requirements. Elbert Mckeon MD Elbert Mckeon Jr, MD 09/12/2021 10:25:52 AM Electronically signed by Elbert Mckeon Jr, MD Number of Addenda: 0 Note Initiated On: 09/12/2021 10:15 AM Estimated Blood Loss: Estimated blood loss: none.
[2021-09-12 10:45] VITALS: BP 144/67
== END 2021-09-12 10:48 | disposition home or self-care (01) ==
LOC: M OPP 08:48
PROVIDERS: ATTEND Surgery
DX: R13.10 Dysphagia, unspecified (principal); J44.9 Chronic obstructive pulmonary disease, unspecified; I25.10 Atherosclerotic heart disease of native coronary artery without angina pectoris; I10 Essential (primary) hypertension; F32.A Depression, unspecified; F41.8 Other specified anxiety disorders
CPT/HCPCS: 43235; J3010

== ENCOUNTER → 2021-10-08 | Outpatient (CLI) | payer MEDICARE, MEDICAID ==
[~2021-10-08] MED LIST changes: -NS 1,000 ML IV ONE
--- NOTE | 2021-10-08 14:06 | REPVR ---
PROCEDURE INFORMATION: Exam: CT Chest Without Contrast; Diagnostic Exam date and time: 10/08/2021 11:23 AM Age: 80 years old Clinical indication: Condition or disease; Other: F/u pulmonary nodule TECHNIQUE: Imaging protocol: Diagnostic computed tomography of the chest without contrast. 3D rendering (Not supervised by radiologist): MIP and/or 3D reconstructed images were created by the technologist. Radiation optimization: All CT scans at this facility use at least one of these dose optimization techniques: automated exposure control; mA and/or kV adjustment per patient size (includes targeted exams where dose is matched to clinical indication); or iterative reconstruction. COMPARISON: CT Chest without contrast 06/18/2021 11:46 AM FINDINGS: Lungs: Heterogeneous lung parenchyma suspicious for emphysema. Pleuroparenchymal scarring is stable in the right apex. Stable 2 mm peripheral middle lobe nodule image 202/59. Stable pleuroparenchymal scarring involving the left base with subtle reticulonodular densities under 5 mm. Soft tissue density is again identified within left lower lobe bronchi however, this now extends more to the left lower lobe bronchus and is possibly secretions. Consider direct visualization. Resolution of the 6 mm left lower lobe density. Pleural spaces: Area pleural thickening stable on the left image 202/76 measuring 4 mm. Heart: Unremarkable. No cardiomegaly. No pericardial effusion. Aorta: Unremarkable. No aortic aneurysm. Lymph nodes: Unremarkable. No enlarged lymph nodes. Intraperitoneal space: Stable upper abdomen. Bones/joints: Stable healed and deformed left ribs. Soft tissues: Unremarkable. Other findings: Stable vascular structures including calcifications. IMPRESSION: 1. Stable heterogeneous lungs and findings as above with the exception of resolution a 6 mm left lateral basilar density. 2. Increasing soft tissue density within left lower lobe bronchus and bronchials. Electronically signed by: Abram Urrutia On 10/08/2021 14:06:29 PM
== END ==
LOC: M RAD 11:16
PROVIDERS: ATTEND Internal Medicine
DX: R91.8 Other nonspecific abnormal finding of lung field (principal); J98.4 Other disorders of lung

== ENCOUNTER → 2021-10-11 | Outpatient (REF) | payer MEDICARE, MEDICAID ==
[2021-10-11 15:46] LABS: HEMATOCRIT 34.6 % (42.0-52.0); HEMOGLOBIN 11.6 g/dl (13.5-17.5); MEAN CORPUSCULAR HEMOGLOBIN 31.6 pg (27.0-33.0); MEAN CORPUSCULAR HGB CONC 33.5 g/dl (32.0-36.5); MEAN CORPUSCULAR VOLUME 94.3 fl (80.0-96.0); PLATELET COUNT, AUTOMATED 233 10^3/uL (150-450); RED BLOOD COUNT 3.67 10^6/uL (4.30-6.10); WHITE BLOOD COUNT 7.6 10^3/uL (4.0-10.0)
[2021-10-11 16:13] LABS: ALBUMIN 3.3 GM/DL (3.2-5.2); ALT/SGPT 23 U/L (12-78); BILIRUBIN,TOTAL 1.5 MG/DL (0.2-1.0); BLOOD UREA NITROGEN 19 MG/DL (7-18); CALCIUM LEVEL 9.2 MG/DL (8.8-10.2); CARBON DIOXIDE LEVEL 32 MEQ/L (21-32); CHLORIDE LEVEL 99 MEQ/L (98-107); CREATININE FOR GFR 0.98 MG/DL (0.70-1.30); GLOMERULAR FILTRATION RATE > 60.0 (>42); GLUCOSE, FASTING 102 MG/DL (70-100); IRON (FE) 98 UG/DL (65-175); POTASSIUM SERUM 4.3 MEQ/L (3.5-5.1); SODIUM LEVEL 133 MEQ/L (136-145); TOTAL PROTEIN 6.8 GM/DL (6.4-8.2)
[2021-10-11 16:22] LABS: FOLATE > 24.0 NG/ML (>5.4); VITAMIN B12 LEVEL 1564 PG/ML (247-911)
== END ==
LOC: M SFHCCLAY 12:03
PROVIDERS: ATTEND Family Medicine
DX: D50.0 Iron deficiency anemia secondary to blood loss (chronic) (principal); J44.9 Chronic obstructive pulmonary disease, unspecified; I10 Essential (primary) hypertension
CPT/HCPCS: 80053; 82607; 82746; 83540; 85027; G0463

== ENCOUNTER → 2021-12-09 | Outpatient (CLI) | payer MEDICARE, MEDICAID ==
[~2021-12-09] MED LIST changes: +LOSA100T45 PO; -LOSA100T50 PO
== END ==
LOC: M LABSMTC 11:32
PROVIDERS: ATTEND Otolaryngology
DX: Z01.812 Encounter for preprocedural laboratory examination (principal); Z20.822 Contact with and (suspected) exposure to COVID-19

== ENCOUNTER → 2022-02-25 | Outpatient (REF) | payer MEDICARE, MEDICAID ==
[2022-02-25 16:23] LABS: BASO # 0.1 10^3/uL (0.0-0.2); BASO % 1.2 % (0.0-1.0); EOS # 0.2 10^3/uL (0.0-0.5); HEMATOCRIT 33.4 % (42.0-52.0); HEMOGLOBIN 11.3 g/dl (13.5-17.5); LYMPH # 2.4 10^3/uL (1.5-5.0); LYMPH % 28.2 % (24.0-44.0); MEAN CORPUSCULAR HEMOGLOBIN 31.5 pg (27.0-33.0); MEAN CORPUSCULAR HGB CONC 33.8 g/dl (32.0-36.5); MONO # 1.1 10^3/uL (0.0-0.8); MONO % 13.1 % (2.0-8.0); NEUTROPHILS # 4.6 10^3/uL (1.5-8.5); NEUTROPHILS % 55.3 % (36.0-66.0); PLATELET COUNT, AUTOMATED 243 10^3/uL (150-450); RED BLOOD COUNT 3.59 10^6/uL (4.30-6.10); WHITE BLOOD COUNT 8.3 10^3/uL (4.0-10.0)
[2022-02-25 16:45] LABS: BLOOD UREA NITROGEN 15 MG/DL (7-18); CALCIUM LEVEL 9.8 MG/DL (8.8-10.2); CARBON DIOXIDE LEVEL 29 MEQ/L (21-32); CHLORIDE LEVEL 97 MEQ/L (98-107); CHOLESTEROL LEVEL 109 MG/DL (<200); CHOLESTEROL RISK RATIO 1.415 (<5); CREATININE FOR GFR 0.94 MG/DL (0.70-1.30); GLOMERULAR FILTRATION RATE > 60.0 (>35); GLUCOSE, FASTING 70 MG/DL (70-100); HDL CHOLESTEROL 77 MG/DL (>40); LDL CHOLESTEROL 20 MG/DL (<100); NON-HDL-C 32 MG/DL; POTASSIUM SERUM 4.3 MEQ/L (3.5-5.1); SODIUM LEVEL 132 MEQ/L (136-145); TRIGLYCERIDES LEVEL 59 MG/DL (<150)
== END ==
LOC: M LABDRWCV 15:57
PROVIDERS: ATTEND Internal Medicine
DX: I10 Essential (primary) hypertension (principal); D64.9 Anemia, unspecified; E78.00 Pure hypercholesterolemia, unspecified

== ENCOUNTER → 2022-04-03 | Outpatient (CLI) | payer MEDICARE, MEDICAID | LOC: M WHC 13:13 | PROVIDERS: ATTEND Internal Medicine | DX: N63.41 Unspecified lump in right breast, subareolar (principal) | CPT/HCPCS: 76642; 77066; G0279 ==

== ENCOUNTER → 2022-04-07 | Outpatient (REF) | payer MEDICARE, MEDICAID ==
[2022-04-07 16:26] LABS: BASO # 0.1 10^3/uL (0.0-0.2); BASO % 0.5 % (0.0-1.0); EOS # 0.1 10^3/uL (0.0-0.5); EOS % 0.7 % (0.0-3.0); HEMATOCRIT 33.2 % (42.0-52.0); LYMPH # 0.9 10^3/uL (1.5-5.0); LYMPH % 9.3 % (24.0-44.0); MEAN CORPUSCULAR HGB CONC 33.1 g/dl (32.0-36.5); MEAN CORPUSCULAR VOLUME 93.5 fl (80.0-96.0); MONO # 1.3 10^3/uL (0.0-0.8); NEUTROPHILS # 7.4 10^3/uL (1.5-8.5); NEUTROPHILS % 76.2 % (36.0-66.0); PLATELET COUNT, AUTOMATED 262 10^3/uL (150-450); RED BLOOD COUNT 3.55 10^6/uL (4.30-6.10); WHITE BLOOD COUNT 9.7 10^3/uL (4.0-10.0)
[2022-04-07 16:50] LABS: ALBUMIN 3.2 GM/DL (3.2-5.2); BLOOD UREA NITROGEN 10 MG/DL (7-18); CALCIUM LEVEL 9.1 MG/DL (8.8-10.2); CARBON DIOXIDE LEVEL 29 MEQ/L (21-32); CHLORIDE LEVEL 91 MEQ/L (98-107); CREATININE FOR GFR 0.82 MG/DL (0.70-1.30); GLOMERULAR FILTRATION RATE > 60.0 (>35); GLUCOSE, FASTING 82 MG/DL (70-100); NT-PRO BNP 407 PG/ML (<450); PHOSPHORUS LEVEL 3.6 MG/DL (2.5-4.9); SODIUM LEVEL 128 MEQ/L (136-145)
== END ==
LOC: M LABDRWCV 15:31
PROVIDERS: ATTEND Internal Medicine Cardiovascular Disease
DX: I50.32 Chronic diastolic (congestive) heart failure (principal)

== ENCOUNTER → 2022-07-29 | Outpatient (REF) | payer MEDICARE, MEDICAID ==
[2022-07-29 17:55] LABS: ALBUMIN 3.2 GM/DL (3.2-5.2); ALT/SGPT 35 U/L (12-78); BILIRUBIN,TOTAL 1.3 MG/DL (0.2-1.0); BLOOD UREA NITROGEN 14 MG/DL (7-18); CARBON DIOXIDE LEVEL 29 MEQ/L (21-32); CHLORIDE LEVEL 93 MEQ/L (98-107); CREATININE FOR GFR 0.74 MG/DL (0.70-1.30); GLOMERULAR FILTRATION RATE > 60.0 (>35); GLUCOSE, FASTING 118 MG/DL (70-100); NT-PRO BNP 438 PG/ML (<450); POTASSIUM SERUM 4.1 MEQ/L (3.5-5.1); SODIUM LEVEL 128 MEQ/L (136-145); TOTAL PROTEIN 6.9 GM/DL (6.4-8.2)
[2022-07-29 17:56] LABS: BASO # 0.1 10^3/uL (0.0-0.2); BASO % 0.5 % (0.0-1.0); EOS # 0.2 10^3/uL (0.0-0.5); EOS % 0.9 % (0.0-3.0); HEMATOCRIT 33.6 % (42.0-52.0); HEMOGLOBIN 11.2 g/dl (13.5-17.5); LYMPH # 1.4 10^3/uL (1.5-5.0); LYMPH % 8.2 % (24.0-44.0); MEAN CORPUSCULAR HEMOGLOBIN 32.3 pg (27.0-33.0); MEAN CORPUSCULAR HGB CONC 33.3 g/dl (32.0-36.5); MEAN CORPUSCULAR VOLUME 96.8 fl (80.0-96.0); MONO # 1.1 10^3/uL (0.0-0.8); MONO % 6.7 % (2.0-8.0); NEUTROPHILS # 13.7 10^3/uL (1.5-8.5); NEUTROPHILS % 83.3 % (36.0-66.0); PLATELET COUNT, AUTOMATED 340 10^3/uL (150-450); RED BLOOD COUNT 3.47 10^6/uL (4.30-6.10); WHITE BLOOD COUNT 16.5 10^3/uL (4.0-10.0)
== END ==
LOC: M LAB REF 17:18
PROVIDERS: ATTEND Internal Medicine Cardiovascular Disease
DX: I50.32 Chronic diastolic (congestive) heart failure (principal); D64.9 Anemia, unspecified

== ENCOUNTER → 2022-08-04 | Outpatient (REF) | payer MEDICARE, MEDICAID ==
[2022-08-04 19:21] LABS: BASO # 0.1 10^3/uL (0.0-0.2); BASO % 0.9 % (0.0-1.0); EOS # 0.3 10^3/uL (0.0-0.5); EOS % 3.7 % (0.0-3.0); HEMATOCRIT 34.3 % (42.0-52.0); HEMOGLOBIN 11.1 g/dl (13.5-17.5); LYMPH # 1.5 10^3/uL (1.5-5.0); LYMPH % 19.3 % (24.0-44.0); MEAN CORPUSCULAR HEMOGLOBIN 32.1 pg (27.0-33.0); MEAN CORPUSCULAR HGB CONC 32.4 g/dl (32.0-36.5); MEAN CORPUSCULAR VOLUME 99.1 fl (80.0-96.0); MONO # 0.9 10^3/uL (0.0-0.8); NEUTROPHILS # 4.8 10^3/uL (1.5-8.5); NEUTROPHILS % 63.4 % (36.0-66.0); PLATELET COUNT, AUTOMATED 324 10^3/uL (150-450); RED BLOOD COUNT 3.46 10^6/uL (4.30-6.10); WHITE BLOOD COUNT 7.6 10^3/uL (4.0-10.0)
[2022-08-04 19:49] LABS: ALBUMIN 3.1 GM/DL (3.2-5.2); ALT/SGPT 31 U/L (12-78); BILIRUBIN,TOTAL 1.1 MG/DL (0.2-1.0); BLOOD UREA NITROGEN 14 MG/DL (7-18); CALCIUM LEVEL 8.9 MG/DL (8.8-10.2); CARBON DIOXIDE LEVEL 31 MEQ/L (21-32); CHLORIDE LEVEL 96 MEQ/L (98-107); CREATININE FOR GFR 0.83 MG/DL (0.70-1.30); FERRITIN 153 NG/ML (26-388); GLOMERULAR FILTRATION RATE > 60.0 (>35); GLUCOSE, FASTING 78 MG/DL (70-100); IRON (FE) 80 UG/DL (65-175); MAGNESIUM LEVEL 2.1 MG/DL (1.8-2.4); POTASSIUM SERUM 4.1 MEQ/L (3.5-5.1); SODIUM LEVEL 132 MEQ/L (136-145); TOTAL IRON BINDING CAPACITY 286 UG/DL (250-450); TOTAL PROTEIN 6.8 GM/DL (6.4-8.2)
== END ==
LOC: M LABDRWCV 17:10
PROVIDERS: ATTEND Internal Medicine
DX: I10 Essential (primary) hypertension (principal); D50.0 Iron deficiency anemia secondary to blood loss (chronic); Z79.82 Long term (current) use of aspirin; Z79.899 Other long term (current) drug therapy

== ENCOUNTER → 2022-08-20 | Outpatient (CLI) | payer MEDICARE, MEDICAID | LOC: M PLAIMG 13:14 | PROVIDERS: ATTEND Internal Medicine | DX: R91.8 Other nonspecific abnormal finding of lung field (principal) ==

== ENCOUNTER → 2022-09-29 | Outpatient (CLI) | payer MEDICARE, MEDICAID | LOC: M PLARAD 15:42 | PROVIDERS: ATTEND Internal Medicine | DX: R91.8 Other nonspecific abnormal finding of lung field (principal) | CPT/HCPCS: 78815; A9552 ==

== ENCOUNTER 2022-10-25 20:06 | Inpatient (IN) | payer MEDICARE, MEDICAID ==
[~2022-10-25] VITALS: Ht 180.3 cm; Wt 46.2 kg
[2022-10-25 22:25] LABS: BASO # 0.1 10^3/uL (0.0-0.2); BASO % 0.3 % (0.0-1.0); EOS % 0.1 % (0.0-3.0); HEMATOCRIT 34.9 % (42.0-52.0); HEMOGLOBIN 11.9 g/dl (13.5-17.5); MEAN CORPUSCULAR HEMOGLOBIN 31.7 pg (27.0-33.0); MEAN CORPUSCULAR HGB CONC 34.1 g/dl (32.0-36.5); MEAN CORPUSCULAR VOLUME 93.1 fl (80.0-96.0); MONO # 0.8 10^3/uL (0.0-0.8); NEUTROPHILS # 14.6 10^3/uL (1.5-8.5); NEUTROPHILS % 87.9 % (36.0-66.0); PLATELET COUNT, AUTOMATED 207 10^3/uL (150-450); RED BLOOD COUNT 3.75 10^6/uL (4.30-6.10); WHITE BLOOD COUNT 16.7 10^3/uL (4.0-10.0)
[2022-10-25 22:39] LABS: INR 0.93; PARTIAL THROMBOPLASTIN TIME 32.6 SECONDS (24.8-34.2); PROTHROMBIN TIME 12.7 SECONDS (12.5-14.5)
[2022-10-25 22:52] LABS: ETHYL ALCOHOL (ETHANOL) 0.003 % (0.000-0.010)
[2022-10-25 22:54] LABS: BLOOD UREA NITROGEN 14 MG/DL (9-23); CALCIUM LEVEL 8.9 MG/DL (8.3-10.6); CARBON DIOXIDE LEVEL 28 MMOL/L (20-31); CHLORIDE LEVEL 93 MMOL/L (98-107); CK-MB VALUE MASS 19.2 NG/ML (<3.6); CPK CREATINE PHOSPHOKINASE 557 U/L (46-171); CREATININE FOR GFR 0.78 MG/DL (0.70-1.30); GLOMERULAR FILTRATION RATE > 60.0 (>35); GLUCOSE, FASTING 92 MG/DL (74-106); MB/CK RELATIVE INDEX 3.44 (< OR =4); POTASSIUM SERUM 3.7 MMOL/L (3.5-5.1); SODIUM LEVEL 129 MMOL/L (136-145)
[2022-10-25 22:56] LABS: THYROID STIMULATING HORMONE 3.354 uIU/ML (0.55-4.78)
[2022-10-25 23:06] LABS: RSV AMPLIFICATION NEGATIVE (NEGATIVE)
[2022-10-25] MEDS ORDERED: GLUC1TAB58 PO (23:33)
[2022-10-25] MEDS ORDERED: MULT-40 PO (23:33)
[2022-10-25] MEDS ORDERED: BREO1INH3 PO (23:35)
[2022-10-25] MEDS ORDERED: EPLE25TA PO (23:35)
[2022-10-25] MEDS ORDERED: OMEG10002 PO (23:36)
[2022-10-25] MEDS ORDERED: HOME MED LIST COMPLETE! XX SCH (23:40)
[2022-10-25] MEDS ORDERED: LORazepam 2 MG TAB PO PRN (23:45)
[2022-10-26] MEDS: OXAZEPAM 15MG CAP PO SCH ×2 (00:53→05:59)
[2022-10-26] MEDS: KETOROLAC 30 MG/ML 1ML VIAL IV PRN ×4 (00:59→21:52)
[2022-10-26] MEDS ORDERED: NS 1,000 ML IV SCH (02:00)
[2022-10-26] MEDS ORDERED: PILL CUTTER 1 EACH XX PRN (05:10)
[2022-10-26 07:10] LABS: HEMATOCRIT 32.2 % (42.0-52.0); HEMOGLOBIN 10.7 g/dl (13.5-17.5); MEAN CORPUSCULAR HEMOGLOBIN 31.8 pg (27.0-33.0); MEAN CORPUSCULAR HGB CONC 33.2 g/dl (32.0-36.5); MEAN CORPUSCULAR VOLUME 95.5 fl (80.0-96.0); PLATELET COUNT, AUTOMATED 180 10^3/uL (150-450); RED BLOOD COUNT 3.37 10^6/uL (4.30-6.10); WHITE BLOOD COUNT 9.3 10^3/uL (4.0-10.0)
[2022-10-26 07:34] LABS: MAGNESIUM LEVEL 1.9 MG/DL (1.8-2.4)
[2022-10-26 07:38] LABS: BLOOD UREA NITROGEN 13 MG/DL (9-23); CALCIUM LEVEL 8.4 MG/DL (8.3-10.6); CARBON DIOXIDE LEVEL 31 MMOL/L (20-31); CHLORIDE LEVEL 94 MMOL/L (98-107); CREATININE FOR GFR 0.86 MG/DL (0.70-1.30); GLOMERULAR FILTRATION RATE > 60.0 (>35); GLUCOSE, FASTING 78 MG/DL (74-106); POTASSIUM SERUM 3.8 MMOL/L (3.5-5.1); SODIUM LEVEL 130 MMOL/L (136-145)
[2022-10-26] MEDS: ADVAIR HFA 115/21MCG INHALER INH SCH ×2 (07:56→20:29)
[2022-10-26] MEDS: TIOTROPIUM INHALER/CAPSULE (SPIRIVA) INH SCH (07:57)
[2022-10-26] MEDS: BISOPROLOL FUM 2.5 MG PER 1/2TAB PO SCH (08:31)
[2022-10-26] MEDS: LOSARTAN 50MG TABLET PO SCH (08:41)
[2022-10-26] MEDS: FERROUS SULFATE 325MG TAB PO SCH (08:43)
[2022-10-26] MEDS: FOLIC ACID 1MG TAB PO SCH (08:44)
[2022-10-26] MEDS: MULTIVITAMINS/MINERALS THERAP 1 TAB PO SCH (08:44)
[2022-10-26] MEDS: ATORVASTATIN 20 MG TAB PO SCH (08:44)
[2022-10-26] MEDS: THIAMINE 100 MG TAB PO SCH ×2 (08:45→21:41)
[2022-10-26] MEDS ORDERED: TORSEMIDE 10 MG TABLET PO SCH (09:00)
[2022-10-26] MEDS ORDERED: ASPIRIN 81MG ENTERIC TABLET PO SCH (09:00)
[2022-10-26] MEDS ORDERED: **hydrALAZINE HCL** 25 MG TAB PO PRN (09:50)
[2022-10-26] MEDS ORDERED: OXAZEPAM 15MG CAP PO SCH (14:00)
[2022-10-26] MEDS: ACETAMINOPHEN TAB 650MG DOSE (2X325MG) PO PRN (18:20)
[2022-10-27] VITALS (8 sets, daily range): BP systolic 104–171; BP diastolic 53–79
[2022-10-27 06:41] LABS: BASO # 0.1 10^3/uL (0.0-0.2); BASO % 0.8 % (0.0-1.0); EOS # 0.1 10^3/uL (0.0-0.5); EOS % 0.9 % (0.0-3.0); HEMATOCRIT 31.2 % (42.0-52.0); HEMOGLOBIN 10.5 g/dl (13.5-17.5); LYMPH # 1.2 10^3/uL (1.5-5.0); LYMPH % 15.3 % (24.0-44.0); MEAN CORPUSCULAR HEMOGLOBIN 32.1 pg (27.0-33.0); MEAN CORPUSCULAR HGB CONC 33.7 g/dl (32.0-36.5); MEAN CORPUSCULAR VOLUME 95.4 fl (80.0-96.0); MONO # 1.1 10^3/uL (0.0-0.8); MONO % 13.9 % (2.0-8.0); NEUTROPHILS # 5.5 10^3/uL (1.5-8.5); NEUTROPHILS % 68.6 % (36.0-66.0); PLATELET COUNT, AUTOMATED 166 10^3/uL (150-450); RED BLOOD COUNT 3.27 10^6/uL (4.30-6.10); WHITE BLOOD COUNT 7.9 10^3/uL (4.0-10.0)
[2022-10-27 07:38] LABS: BLOOD UREA NITROGEN 18 MG/DL (9-23); CALCIUM LEVEL 8.3 MG/DL (8.3-10.6); CARBON DIOXIDE LEVEL 25 MMOL/L (20-31); CHLORIDE LEVEL 101 MMOL/L (98-107); GLOMERULAR FILTRATION RATE > 60.0 (>35); GLUCOSE, FASTING 80 MG/DL (74-106); POTASSIUM SERUM 4.2 MMOL/L (3.5-5.1); SODIUM LEVEL 135 MMOL/L (136-145)
[2022-10-27] MEDS: ADVAIR HFA 115/21MCG INHALER INH SCH ×2 (08:08→20:06)
[2022-10-27] MEDS: TIOTROPIUM INHALER/CAPSULE (SPIRIVA) INH SCH (08:08)
[2022-10-27] MEDS: LOSARTAN 50MG TABLET PO SCH (09:00)
[2022-10-27] MEDS: MULTIVITAMINS/MINERALS THERAP 1 TAB PO SCH (09:00)
[2022-10-27] MEDS: ATORVASTATIN 20 MG TAB PO SCH (09:00)
[2022-10-27] MEDS: THIAMINE 100 MG TAB PO SCH ×2 (09:00→19:41)
[2022-10-27] MEDS: FOLIC ACID 1MG TAB PO SCH (09:00)
[2022-10-27] MEDS: BISOPROLOL FUM 2.5 MG PER 1/2TAB PO SCH (09:00)
[2022-10-27] MEDS: FERROUS SULFATE 325MG TAB PO SCH (09:00)
[2022-10-27] MEDS ORDERED: ceFAZolin 2 GM/D5W 50 ML IV BAG As Ordered ONE (09:46)
[2022-10-27] MEDS ORDERED: propofoL 200 MG/20 ML VIAL As Ordered ONE (11:01)
[2022-10-27] MEDS ORDERED: KETAMINE HCL 200MG/20ML VIAL As Ordered ONE (11:01)
[2022-10-27] MEDS ORDERED: MIDAZOLAM INJ 2MG/2ML VIAL (J2250 PER 1MG) As Ordered ONE (11:01)
[2022-10-27] MEDS ORDERED: ePHEDrine SULFATE 25 MG/5 ML(5MG/ML) SYRINGE As Ordered ONE (11:03)
[2022-10-27] MEDS: ACETAMINOPHEN TAB 650MG DOSE (2X325MG) PO PRN (16:04)
[2022-10-27] MEDS: KETOROLAC 30 MG/ML 1ML VIAL IV PRN (17:02)
[2022-10-27] MEDS: ceFAZolin SOD 1 GM in D5W MINI-BAG PLUS 50 ML IV SCH (19:41)
[2022-10-27] MEDS: MORPHINE 2 MG/ML 1ML VIAL IV PRN (19:46)
[2022-10-28] MEDS: KETOROLAC 30 MG/ML 1ML VIAL IV PRN (00:16)
[2022-10-28 00:25] VITALS: BP 137/68
[2022-10-28 02:00] VITALS: BP 135/69
[2022-10-28] MEDS: ceFAZolin SOD 1 GM in D5W MINI-BAG PLUS 50 ML IV SCH ×2 (03:12→10:06)
[2022-10-28] MEDS: MORPHINE 2 MG/ML 1ML VIAL IV PRN (04:31)
[2022-10-28 06:00] VITALS: BP 122/63
[2022-10-28] MEDS: TIOTROPIUM INHALER/CAPSULE (SPIRIVA) INH SCH (07:18)
[2022-10-28] MEDS: ADVAIR HFA 115/21MCG INHALER INH SCH ×2 (07:19→19:39)
[2022-10-28 08:23] LABS: BASO % 0.5 % (0.0-1.0); EOS # 0.1 10^3/uL (0.0-0.5); EOS % 0.8 % (0.0-3.0); HEMATOCRIT 30.1 % (42.0-52.0); LYMPH # 1.3 10^3/uL (1.5-5.0); LYMPH % 15.1 % (24.0-44.0); MEAN CORPUSCULAR HEMOGLOBIN 32.6 pg (27.0-33.0); MEAN CORPUSCULAR HGB CONC 33.2 g/dl (32.0-36.5); MONO # 1.1 10^3/uL (0.0-0.8); MONO % 13.2 % (2.0-8.0); NEUTROPHILS % 69.9 % (36.0-66.0); PLATELET COUNT, AUTOMATED 171 10^3/uL (150-450); RED BLOOD COUNT 3.07 10^6/uL (4.30-6.10); WHITE BLOOD COUNT 8.6 10^3/uL (4.0-10.0)
[2022-10-28 08:54] LABS: BLOOD UREA NITROGEN 15 MG/DL (9-23); CALCIUM LEVEL 8.5 MG/DL (8.3-10.6); CARBON DIOXIDE LEVEL 32 MMOL/L (20-31); CHLORIDE LEVEL 100 MMOL/L (98-107); CREATININE FOR GFR 0.75 MG/DL (0.70-1.30); GLOMERULAR FILTRATION RATE > 60.0 (>35); GLUCOSE, FASTING 114 MG/DL (74-106); POTASSIUM SERUM 4.3 MMOL/L (3.5-5.1); SODIUM LEVEL 137 MMOL/L (136-145)
[2022-10-28 10:00] VITALS: BP 131/61
[2022-10-28] MEDS: FOLIC ACID 1MG TAB PO SCH (10:06)
[2022-10-28] MEDS: MULTIVITAMINS/MINERALS THERAP 1 TAB PO SCH (10:07)
[2022-10-28] MEDS: ATORVASTATIN 20 MG TAB PO SCH (10:07)
[2022-10-28] MEDS: ASPIRIN 81MG CHEW TABLET PO SCH (10:07)
[2022-10-28] MEDS: BISOPROLOL FUM 2.5 MG PER 1/2TAB PO SCH (10:07)
[2022-10-28] MEDS: THIAMINE 100 MG TAB PO SCH ×2 (10:08→20:10)
[2022-10-28] MEDS: SENOKOT S TAB PO SCH ×2 (10:08→20:10)
[2022-10-28] MEDS: LOSARTAN 50MG TABLET PO SCH (10:08)
[2022-10-28] MEDS: FERROUS SULFATE 325MG TAB PO SCH (10:08)
[2022-10-28 14:00] VITALS: BP 125/54
[2022-10-28 22:07] VITALS: BP 160/74
[2022-10-29 02:06] VITALS: BP 147/63
[2022-10-29 05:35] VITALS: BP 149/65
[2022-10-29 06:24] LABS: BASO # 0.1 10^3/uL (0.0-0.2); BASO % 0.5 % (0.0-1.0); EOS # 0.1 10^3/uL (0.0-0.5); EOS % 1.5 % (0.0-3.0); HEMATOCRIT 28.4 % (42.0-52.0); HEMOGLOBIN 9.2 g/dl (13.5-17.5); LYMPH # 1.3 10^3/uL (1.5-5.0); LYMPH % 13.8 % (24.0-44.0); MEAN CORPUSCULAR HEMOGLOBIN 32.1 pg (27.0-33.0); MEAN CORPUSCULAR HGB CONC 32.4 g/dl (32.0-36.5); MONO # 1.4 10^3/uL (0.0-0.8); MONO % 14.7 % (2.0-8.0); NEUTROPHILS # 6.6 10^3/uL (1.5-8.5); NEUTROPHILS % 69.1 % (36.0-66.0); PLATELET COUNT, AUTOMATED 166 10^3/uL (150-450); RED BLOOD COUNT 2.87 10^6/uL (4.30-6.10); WHITE BLOOD COUNT 9.6 10^3/uL (4.0-10.0)
[2022-10-29 06:55] LABS: BLOOD UREA NITROGEN 11 MG/DL (9-23); CALCIUM LEVEL 8.2 MG/DL (8.3-10.6); CARBON DIOXIDE LEVEL 31 MMOL/L (20-31); CHLORIDE LEVEL 100 MMOL/L (98-107); CREATININE FOR GFR 0.71 MG/DL (0.70-1.30); GLOMERULAR FILTRATION RATE > 60.0 (>35); GLUCOSE, FASTING 104 MG/DL (74-106); POTASSIUM SERUM 4.3 MMOL/L (3.5-5.1); SODIUM LEVEL 136 MMOL/L (136-145)
[2022-10-29] MEDS: ADVAIR HFA 115/21MCG INHALER INH SCH (07:18)
[2022-10-29] MEDS: TIOTROPIUM INHALER/CAPSULE (SPIRIVA) INH SCH (07:18)
[2022-10-29] MEDS ORDERED: oxyCODONE 5MG TAB PO PRN (07:35)
[2022-10-29 07:57] LABS: ALBUMIN 2.5 G/DL (3.2-5.2)
[2022-10-29] MEDS ORDERED: MIRALAX *UNIT DOSE* 17GM PACKET PO SCH (09:00)
[2022-10-29 09:14] VITALS: BP 117/64
[2022-10-29] MEDS: BISOPROLOL FUM 2.5 MG PER 1/2TAB PO SCH (09:14)
[2022-10-29] MEDS: MULTIVITAMINS/MINERALS THERAP 1 TAB PO SCH (09:15)
[2022-10-29] MEDS: FOLIC ACID 1MG TAB PO SCH (09:15)
[2022-10-29] MEDS: ATORVASTATIN 20 MG TAB PO SCH (09:15)
[2022-10-29] MEDS: FERROUS SULFATE 325MG TAB PO SCH (09:15)
[2022-10-29] MEDS: SENOKOT S TAB PO SCH (09:15)
[2022-10-29] MEDS: ASPIRIN 81MG CHEW TABLET PO SCH (09:16)
[2022-10-29] MEDS: LOSARTAN 50MG TABLET PO SCH (09:16)
[2022-10-29 10:00] VITALS: BP 105/58
[2022-10-29] MEDS ORDERED: ACET1TAB55 PO (10:52)
[2022-10-29] MEDS ORDERED: HYDR25TA PO (10:52)
[2022-10-29] MEDS ORDERED: OXYC-517 PO (10:52)
[2022-10-29] MEDS ORDERED: FOLI1TAB11 PO (10:52)
[2022-10-29] MEDS ORDERED: THIA100T7 PO (10:52)
[2022-10-29] MEDS ORDERED: NAPR-849 PO (10:52)
[2022-10-29] MEDS ORDERED: ASPI81CH8 PO (10:52)
[2022-10-29] MEDS ORDERED: SENN-52 PO (10:52)
[2022-10-29] MEDS ORDERED: ENOXAPARIN 40MG/0.4ML SYRINGE (J1650 PER 10MG) SC SCH (12:00)
[2022-10-29 14:00] VITALS: BP 151/69
== END 2022-10-29 15:00 | DRG 480 ==
LOC: M ED 20:06 → M ED INP 23:44 → ENRESERV 10-27 06:34 → M MS5PR 10-27 08:30
PROVIDERS: ADMIT Internal Medicine; ATTEND Internal Medicine Nephrology
PROC: 0QS606Z Reposition Right Upper Femur with Intramedullary Internal Fixation Device, Open Approach (ICD-10-PCS; principal; 2022-10-27 11:04)
DX: S72.141A Displaced intertrochanteric fracture of right femur, initial encounter for closed fracture (principal); E43 Unspecified severe protein-calorie malnutrition; E87.1 Hypo-osmolality and hyponatremia; Z68.1 Body mass index [BMI] 19.9 or less, adult; I10 Essential (primary) hypertension; F10.20 Alcohol dependence, uncomplicated; I25.10 Atherosclerotic heart disease of native coronary artery without angina pectoris; E78.5 Hyperlipidemia, unspecified; Z95.5 Presence of coronary angioplasty implant and graft; I16.0 Hypertensive urgency; D50.9 Iron deficiency anemia, unspecified; F32.A Depression, unspecified; I73.9 Peripheral vascular disease, unspecified; Z95.2 Presence of prosthetic heart valve; J44.9 Chronic obstructive pulmonary disease, unspecified; W18.30XA Fall on same level, unspecified, initial encounter; Y92.009 Unspecified place in unspecified non-institutional (private) residence as the place of occurrence of the external cause; Z79.899 Other long term (current) drug therapy; Z79.82 Long term (current) use of aspirin; Z98.41 Cataract extraction status, right eye; Z98.42 Cataract extraction status, left eye

== ENCOUNTER 2022-10-29 11:40 | Inpatient (IN) | payer MEDICARE, MEDICAID ==
[~2022-10-29] VITALS: Ht 180.3 cm; Wt 46.6 kg
[~2022-10-29 11:40] MED LIST changes: +ACET1TAB55 PO; +ASPI81CH8 PO; +BREO1INH3 PO; +EPLE25TA PO; +FOLI1TAB11 PO; +GLUC1TAB58 PO; +HYDR25TA PO; +MULT-40 PO; +NAPR-849 PO; +OMEG10002 PO; +OXYC-517 PO; +SENN-52 PO; +THIA100T7 PO
[2022-10-29] MEDS ORDERED: ONDANSETRON 4MG TAB PO PRN (12:45)
[2022-10-29] MEDS ORDERED: oxyCODONE 5MG TAB PO PRN (12:45)
[2022-10-29] MEDS ORDERED: BISACODYL 10MG SUPP PR PRN (12:45)
[2022-10-29 15:00] VITALS: BP 138/64
[2022-10-29] MEDS ORDERED: HOME MED LIST COMPLETE! XX SCH (15:10)
[2022-10-29] MEDS: ACETAMINOPHEN 500 MG TAB PO SCH ×3 (16:07→21:51)
[2022-10-29] MEDS: **hydrALAZINE HCL** 25 MG TAB PO SCH (18:40)
[2022-10-29 20:00] VITALS: BP 148/66
[2022-10-29] MEDS: ADVAIR HFA 115/21MCG INHALER INH SCH (20:51)
[2022-10-29] MEDS: SENNA 8.6 MG TAB (SENOKOT) PO SCH (21:00)
[2022-10-29] MEDS: DOCUSATE SODIUM 100MG CAPSULE PO SCH (21:00)
[2022-10-29] MEDS: ASPIRIN 81MG ENTERIC TABLET PO SCH (21:51)
[2022-10-30 06:00] VITALS: BP 129/60
[2022-10-30 06:12] LABS: BASO # 0.1 10^3/uL (0.0-0.2); BASO % 0.8 % (0.0-1.0); EOS # 0.2 10^3/uL (0.0-0.5); EOS % 3.1 % (0.0-3.0); HEMATOCRIT 25.7 % (42.0-52.0); HEMOGLOBIN 8.5 g/dl (13.5-17.5); LYMPH # 1.5 10^3/uL (1.5-5.0); LYMPH % 20.1 % (24.0-44.0); MEAN CORPUSCULAR HEMOGLOBIN 32.7 pg (27.0-33.0); MEAN CORPUSCULAR HGB CONC 33.1 g/dl (32.0-36.5); MEAN CORPUSCULAR VOLUME 98.8 fl (80.0-96.0); MONO # 0.9 10^3/uL (0.0-0.8); NEUTROPHILS # 4.5 10^3/uL (1.5-8.5); NEUTROPHILS % 62.6 % (36.0-66.0); PLATELET COUNT, AUTOMATED 165 10^3/uL (150-450); WHITE BLOOD COUNT 7.2 10^3/uL (4.0-10.0)
[2022-10-30] MEDS: **hydrALAZINE HCL** 25 MG TAB PO SCH ×5 (06:26→23:54)
[2022-10-30] MEDS: TIOTROPIUM INHALER/CAPSULE (SPIRIVA) INH SCH (06:31)
[2022-10-30] MEDS: ADVAIR HFA 115/21MCG INHALER INH SCH (06:31)
[2022-10-30 06:46] LABS: ALBUMIN 2.3 G/DL (3.2-5.2); ALKALINE PHOSPHATASE 63 U/L (46-116); ALT/SGPT 19 U/L (7.0-40); AST/SGOT 38 U/L (<34); BILIRUBIN,TOTAL 1.1 MG/DL (0.3-1.2); BLOOD UREA NITROGEN 13 MG/DL (9-23); CALCIUM LEVEL 8.4 MG/DL (8.3-10.6); CARBON DIOXIDE LEVEL 30 MMOL/L (20-31); CHLORIDE LEVEL 103 MMOL/L (98-107); CREATININE FOR GFR 0.67 MG/DL (0.70-1.30); GLOMERULAR FILTRATION RATE > 60.0 (>35); GLUCOSE, FASTING 86 MG/DL (74-106); POTASSIUM SERUM 4.6 MMOL/L (3.5-5.1); SODIUM LEVEL 137 MMOL/L (136-145)
[2022-10-30] MEDS: FERROUS SULFATE 325MG TAB PO SCH (10:23)
[2022-10-30] MEDS: THIAMINE 100 MG TAB PO SCH (10:23)
[2022-10-30] MEDS: FOLIC ACID 1MG TAB PO SCH (10:24)
[2022-10-30] MEDS: BISOPROLOL FUM 2.5 MG PER 1/2TAB PO SCH (10:24)
[2022-10-30] MEDS: ATORVASTATIN 20 MG TAB PO SCH (10:24)
[2022-10-30] MEDS: MULTIVITAMINS/MINERALS THERAP 1 TAB PO SCH (10:24)
[2022-10-30] MEDS: PANTOPRAZOLE 40MG TAB (PROTONIX) PO SCH (10:25)
[2022-10-30] MEDS: ACETAMINOPHEN 500 MG TAB PO SCH ×3 (10:25→21:07)
[2022-10-30] MEDS: DOCUSATE SODIUM 100MG CAPSULE PO SCH ×2 (10:25→21:00)
[2022-10-30] MEDS: ASPIRIN 81MG ENTERIC TABLET PO SCH ×2 (10:25→21:07)
[2022-10-30] MEDS: LOSARTAN 50MG TABLET PO SCH (10:25)
[2022-10-30 14:00] VITALS: BP 115/55
[2022-10-30 19:42] VITALS: BP 123/60
[2022-10-30] MEDS: SENNA 8.6 MG TAB (SENOKOT) PO SCH (21:00)
[2022-10-31 05:26] VITALS: BP 130/60
[2022-10-31 06:35] LABS: BASO # 0.1 10^3/uL (0.0-0.2); BASO % 0.7 % (0.0-1.0); EOS # 0.3 10^3/uL (0.0-0.5); EOS % 3.6 % (0.0-3.0); HEMATOCRIT 25.1 % (42.0-52.0); HEMOGLOBIN 8.2 g/dl (13.5-17.5); LYMPH # 1.4 10^3/uL (1.5-5.0); LYMPH % 16.6 % (24.0-44.0); MEAN CORPUSCULAR HEMOGLOBIN 32.3 pg (27.0-33.0); MEAN CORPUSCULAR HGB CONC 32.7 g/dl (32.0-36.5); MEAN CORPUSCULAR VOLUME 98.8 fl (80.0-96.0); MONO % 11.4 % (2.0-8.0); NEUTROPHILS # 5.7 10^3/uL (1.5-8.5); NEUTROPHILS % 67.2 % (36.0-66.0); PLATELET COUNT, AUTOMATED 213 10^3/uL (150-450); RED BLOOD COUNT 2.54 10^6/uL (4.30-6.10); WHITE BLOOD COUNT 8.4 10^3/uL (4.0-10.0)
[2022-10-31] MEDS: **hydrALAZINE HCL** 25 MG TAB PO SCH ×3 (06:44→17:07)
[2022-10-31 07:03] LABS: BLOOD UREA NITROGEN 14 MG/DL (9-23); CALCIUM LEVEL 8.4 MG/DL (8.3-10.6); CARBON DIOXIDE LEVEL 30 MMOL/L (20-31); CHLORIDE LEVEL 103 MMOL/L (98-107); CREATININE FOR GFR 0.74 MG/DL (0.70-1.30); GLOMERULAR FILTRATION RATE > 60.0 (>35); GLUCOSE, FASTING 121 MG/DL (74-106); POTASSIUM SERUM 4.1 MMOL/L (3.5-5.1); SODIUM LEVEL 137 MMOL/L (136-145)
[2022-10-31] MEDS: TIOTROPIUM INHALER/CAPSULE (SPIRIVA) INH SCH (07:27)
[2022-10-31] MEDS: ADVAIR HFA 115/21MCG INHALER INH SCH ×2 (07:28→19:15)
[2022-10-31] MEDS: ACETAMINOPHEN 500 MG TAB PO SCH ×3 (09:00→20:56)
[2022-10-31] MEDS: DOCUSATE SODIUM 100MG CAPSULE PO SCH ×2 (09:00→20:56)
[2022-10-31] MEDS: FOLIC ACID 1MG TAB PO SCH (09:38)
[2022-10-31] MEDS: ASPIRIN 81MG ENTERIC TABLET PO SCH ×2 (09:38→20:56)
[2022-10-31] MEDS: MULTIVITAMINS/MINERALS THERAP 1 TAB PO SCH (09:38)
[2022-10-31] MEDS: THIAMINE 100 MG TAB PO SCH (09:38)
[2022-10-31] MEDS: ATORVASTATIN 20 MG TAB PO SCH (09:38)
[2022-10-31] MEDS: PANTOPRAZOLE 40MG TAB (PROTONIX) PO SCH (09:38)
[2022-10-31] MEDS: FERROUS SULFATE 325MG TAB PO SCH (09:39)
[2022-10-31] MEDS: BISOPROLOL FUM 2.5 MG PER 1/2TAB PO SCH (09:42)
[2022-10-31] MEDS: LOSARTAN 50MG TABLET PO SCH (09:42)
[2022-10-31 14:00] VITALS: BP 128/63
[2022-10-31 20:21] VITALS: BP 115/58
[2022-10-31] MEDS: SENNA 8.6 MG TAB (SENOKOT) PO SCH (20:56)
[2022-11-01] MEDS: **hydrALAZINE HCL** 25 MG TAB PO SCH ×5 (06:21→23:53)
[2022-11-01 06:22] VITALS: BP 145/66
[2022-11-01] MEDS: TIOTROPIUM INHALER/CAPSULE (SPIRIVA) INH SCH (06:23)
[2022-11-01] MEDS: ADVAIR HFA 115/21MCG INHALER INH SCH ×2 (06:23→18:00)
[2022-11-01] MEDS: DOCUSATE SODIUM 100MG CAPSULE PO SCH ×2 (07:40→21:00)
[2022-11-01] MEDS: ACETAMINOPHEN 500 MG TAB PO SCH ×4 (08:15→19:29)
[2022-11-01] MEDS: PANTOPRAZOLE 40MG TAB (PROTONIX) PO SCH (08:15)
[2022-11-01] MEDS: BISOPROLOL FUM 2.5 MG PER 1/2TAB PO SCH (08:15)
[2022-11-01] MEDS: THIAMINE 100 MG TAB PO SCH (08:15)
[2022-11-01] MEDS: FOLIC ACID 1MG TAB PO SCH (08:15)
[2022-11-01] MEDS: FERROUS SULFATE 325MG TAB PO SCH (08:15)
[2022-11-01] MEDS: LOSARTAN 50MG TABLET PO SCH (08:15)
[2022-11-01] MEDS: ATORVASTATIN 20 MG TAB PO SCH (08:15)
[2022-11-01] MEDS: ASPIRIN 81MG ENTERIC TABLET PO SCH ×2 (08:15→21:13)
[2022-11-01] MEDS: MULTIVITAMINS/MINERALS THERAP 1 TAB PO SCH (08:15)
[2022-11-01 12:38] VITALS: BP 128/59
[2022-11-01 14:00] VITALS: BP 118/54
[2022-11-01 17:25] VITALS: BP 128/60
[2022-11-01 20:00] VITALS: BP 144/67
[2022-11-01] MEDS: SENNA 8.6 MG TAB (SENOKOT) PO SCH (21:00)
[2022-11-02] VITALS: BP 129/59
[2022-11-02 06:00] VITALS: BP 125/56
[2022-11-02] MEDS: **hydrALAZINE HCL** 25 MG TAB PO SCH ×3 (06:04→17:23)
[2022-11-02] MEDS: TIOTROPIUM INHALER/CAPSULE (SPIRIVA) INH SCH (07:15)
[2022-11-02] MEDS: ADVAIR HFA 115/21MCG INHALER INH SCH ×2 (07:16→19:30)
[2022-11-02] MEDS: ACETAMINOPHEN 500 MG TAB PO SCH ×4 (07:28→20:33)
[2022-11-02] MEDS: DOCUSATE SODIUM 100MG CAPSULE PO SCH ×2 (07:29→20:33)
[2022-11-02] MEDS: THIAMINE 100 MG TAB PO SCH (08:09)
[2022-11-02] MEDS: ASPIRIN 81MG ENTERIC TABLET PO SCH ×2 (08:09→20:33)
[2022-11-02] MEDS: PANTOPRAZOLE 40MG TAB (PROTONIX) PO SCH (08:09)
[2022-11-02] MEDS: FERROUS SULFATE 325MG TAB PO SCH (08:10)
[2022-11-02] MEDS: ATORVASTATIN 20 MG TAB PO SCH (08:10)
[2022-11-02] MEDS: LOSARTAN 50MG TABLET PO SCH (08:10)
[2022-11-02] MEDS: MULTIVITAMINS/MINERALS THERAP 1 TAB PO SCH (08:10)
[2022-11-02] MEDS: BISOPROLOL FUM 2.5 MG PER 1/2TAB PO SCH (08:10)
[2022-11-02] MEDS: FOLIC ACID 1MG TAB PO SCH (08:10)
[2022-11-02 11:30] VITALS: BP 139/65
[2022-11-02 14:00] VITALS: BP 120/52
[2022-11-02 17:22] VITALS: BP 123/59
[2022-11-02 20:00] VITALS: BP 119/25
[2022-11-02] MEDS: SENNA 8.6 MG TAB (SENOKOT) PO SCH (20:33)
[2022-11-03] MEDS: **hydrALAZINE HCL** 25 MG TAB PO SCH ×4 (00:08→17:10)
[2022-11-03 05:40] LABS: BASO # 0.1 10^3/uL (0.0-0.2); BASO % 0.9 % (0.0-1.0); EOS # 0.5 10^3/uL (0.0-0.5); EOS % 6.4 % (0.0-3.0); HEMATOCRIT 26.3 % (42.0-52.0); HEMOGLOBIN 8.4 g/dl (13.5-17.5); LYMPH # 1.6 10^3/uL (1.5-5.0); LYMPH % 21.4 % (24.0-44.0); MEAN CORPUSCULAR HEMOGLOBIN 31.5 pg (27.0-33.0); MEAN CORPUSCULAR HGB CONC 31.9 g/dl (32.0-36.5); MEAN CORPUSCULAR VOLUME 98.5 fl (80.0-96.0); MONO # 0.8 10^3/uL (0.0-0.8); MONO % 9.8 % (2.0-8.0); NEUTROPHILS # 4.7 10^3/uL (1.5-8.5); NEUTROPHILS % 61.1 % (36.0-66.0); PLATELET COUNT, AUTOMATED 306 10^3/uL (150-450); RED BLOOD COUNT 2.67 10^6/uL (4.30-6.10); WHITE BLOOD COUNT 7.6 10^3/uL (4.0-10.0)
[2022-11-03 06:05] VITALS: BP 115/52
[2022-11-03 06:07] LABS: BLOOD UREA NITROGEN 19 MG/DL (9-23); CALCIUM LEVEL 8.7 MG/DL (8.3-10.6); CARBON DIOXIDE LEVEL 27 MMOL/L (20-31); CHLORIDE LEVEL 102 MMOL/L (98-107); CREATININE FOR GFR 0.76 MG/DL (0.70-1.30); GLOMERULAR FILTRATION RATE > 60.0 (>35); GLUCOSE, FASTING 100 MG/DL (74-106); POTASSIUM SERUM 4.4 MMOL/L (3.5-5.1); SODIUM LEVEL 135 MMOL/L (136-145)
[2022-11-03] MEDS: ADVAIR HFA 115/21MCG INHALER INH SCH ×2 (07:40→20:00)
[2022-11-03] MEDS: TIOTROPIUM INHALER/CAPSULE (SPIRIVA) INH SCH (07:40)
[2022-11-03] MEDS: FOLIC ACID 1MG TAB PO SCH (09:16)
[2022-11-03] MEDS: BISOPROLOL FUM 2.5 MG PER 1/2TAB PO SCH (09:16)
[2022-11-03] MEDS: MULTIVITAMINS/MINERALS THERAP 1 TAB PO SCH (09:16)
[2022-11-03] MEDS: PANTOPRAZOLE 40MG TAB (PROTONIX) PO SCH (09:16)
[2022-11-03] MEDS: FERROUS SULFATE 325MG TAB PO SCH (09:16)
[2022-11-03] MEDS: THIAMINE 100 MG TAB PO SCH (09:16)
[2022-11-03] MEDS: ASPIRIN 81MG ENTERIC TABLET PO SCH ×2 (09:16→20:11)
[2022-11-03] MEDS: DOCUSATE SODIUM 100MG CAPSULE PO SCH ×2 (09:16→21:00)
[2022-11-03] MEDS: LOSARTAN 50MG TABLET PO SCH (09:17)
[2022-11-03] MEDS: ACETAMINOPHEN 500 MG TAB PO SCH ×3 (09:18→20:11)
[2022-11-03] MEDS: ATORVASTATIN 20 MG TAB PO SCH (09:20)
[2022-11-03 14:00] VITALS: BP 115/57
[2022-11-03 20:00] VITALS: BP 125/59
[2022-11-03] MEDS: SENNA 8.6 MG TAB (SENOKOT) PO SCH (21:00)
[2022-11-04 05:34] VITALS: BP 149/70
[2022-11-04] MEDS: **hydrALAZINE HCL** 25 MG TAB PO SCH ×5 (05:38→23:03)
[2022-11-04] MEDS: TIOTROPIUM INHALER/CAPSULE (SPIRIVA) INH SCH (07:06)
[2022-11-04] MEDS: ADVAIR HFA 115/21MCG INHALER INH SCH ×2 (07:06→20:48)
[2022-11-04] MEDS: PANTOPRAZOLE 40MG TAB (PROTONIX) PO SCH (08:09)
[2022-11-04] MEDS: FOLIC ACID 1MG TAB PO SCH (08:09)
[2022-11-04] MEDS: ASPIRIN 81MG ENTERIC TABLET PO SCH ×2 (08:09→20:36)
[2022-11-04] MEDS: FERROUS SULFATE 325MG TAB PO SCH (08:10)
[2022-11-04] MEDS: ATORVASTATIN 20 MG TAB PO SCH (08:10)
[2022-11-04] MEDS: MULTIVITAMINS/MINERALS THERAP 1 TAB PO SCH (08:10)
[2022-11-04] MEDS: LOSARTAN 50MG TABLET PO SCH (08:10)
[2022-11-04] MEDS: BISOPROLOL FUM 2.5 MG PER 1/2TAB PO SCH (08:10)
[2022-11-04] MEDS: THIAMINE 100 MG TAB PO SCH (08:10)
[2022-11-04] MEDS: ACETAMINOPHEN 500 MG TAB PO SCH ×3 (08:11→20:36)
[2022-11-04] MEDS: DOCUSATE SODIUM 100MG CAPSULE PO SCH ×2 (08:11→20:37)
[2022-11-04 14:00] VITALS: BP_SYST 140; BP_SYST 147; BP_DIAS 65; BP_DIAS 69
[2022-11-04 20:21] VITALS: BP 123/74
[2022-11-04] MEDS: SENNA 8.6 MG TAB (SENOKOT) PO SCH (20:36)
[2022-11-05 05:21] VITALS: BP 121/52
[2022-11-05] MEDS: **hydrALAZINE HCL** 25 MG TAB PO SCH ×4 (05:47→23:59)
[2022-11-05] MEDS: ADVAIR HFA 115/21MCG INHALER INH SCH ×2 (08:00→19:25)
[2022-11-05] MEDS: TIOTROPIUM INHALER/CAPSULE (SPIRIVA) INH SCH (08:00)
[2022-11-05] MEDS: BISOPROLOL FUM 2.5 MG PER 1/2TAB PO SCH (08:26)
[2022-11-05] MEDS: FOLIC ACID 1MG TAB PO SCH (08:27)
[2022-11-05] MEDS: ACETAMINOPHEN 500 MG TAB PO SCH ×3 (08:27→20:03)
[2022-11-05] MEDS: MULTIVITAMINS/MINERALS THERAP 1 TAB PO SCH (08:27)
[2022-11-05] MEDS: LOSARTAN 50MG TABLET PO SCH (08:27)
[2022-11-05] MEDS: ATORVASTATIN 20 MG TAB PO SCH (08:27)
[2022-11-05] MEDS: FERROUS SULFATE 325MG TAB PO SCH (08:27)
[2022-11-05] MEDS: THIAMINE 100 MG TAB PO SCH (08:27)
[2022-11-05] MEDS: ASPIRIN 81MG ENTERIC TABLET PO SCH ×2 (08:27→20:02)
[2022-11-05] MEDS: DOCUSATE SODIUM 100MG CAPSULE PO SCH ×2 (08:27→19:42)
[2022-11-05] MEDS: PANTOPRAZOLE 40MG TAB (PROTONIX) PO SCH (08:27)
[2022-11-05 10:46] LABS: BASO # 0.1 10^3/uL (0.0-0.2); BASO % 1.2 % (0.0-1.0); EOS # 0.5 10^3/uL (0.0-0.5); EOS % 5.4 % (0.0-3.0); HEMATOCRIT 27.3 % (42.0-52.0); HEMOGLOBIN 8.9 g/dl (13.5-17.5); LYMPH # 1.5 10^3/uL (1.5-5.0); LYMPH % 18.1 % (24.0-44.0); MEAN CORPUSCULAR HEMOGLOBIN 32.2 pg (27.0-33.0); MEAN CORPUSCULAR HGB CONC 32.6 g/dl (32.0-36.5); MEAN CORPUSCULAR VOLUME 98.9 fl (80.0-96.0); MONO # 0.9 10^3/uL (0.0-0.8); MONO % 11.3 % (2.0-8.0); NEUTROPHILS # 5.3 10^3/uL (1.5-8.5); NEUTROPHILS % 63.4 % (36.0-66.0); PLATELET COUNT, AUTOMATED 373 10^3/uL (150-450); RED BLOOD COUNT 2.76 10^6/uL (4.30-6.10); WHITE BLOOD COUNT 8.3 10^3/uL (4.0-10.0)
[2022-11-05 11:12] LABS: BLOOD UREA NITROGEN 17 MG/DL (9-23); CARBON DIOXIDE LEVEL 29 MMOL/L (20-31); CHLORIDE LEVEL 100 MMOL/L (98-107); CREATININE FOR GFR 0.75 MG/DL (0.70-1.30); GLOMERULAR FILTRATION RATE > 60.0 (>35); GLUCOSE, FASTING 85 MG/DL (74-106); POTASSIUM SERUM 4.6 MMOL/L (3.5-5.1); SODIUM LEVEL 135 MMOL/L (136-145)
[2022-11-05 12:04] VITALS: BP 119/56
[2022-11-05 14:00] VITALS: BP 119/58
[2022-11-05 17:11] VITALS: BP 115/56
[2022-11-05] MEDS: SENNA 8.6 MG TAB (SENOKOT) PO SCH (19:42)
[2022-11-05 20:00] VITALS: BP 131/60
[2022-11-06 05:00] VITALS: BP 114/57
[2022-11-06] MEDS: **hydrALAZINE HCL** 25 MG TAB PO SCH ×2 (05:02→11:41)
[2022-11-06] MEDS: TIOTROPIUM INHALER/CAPSULE (SPIRIVA) INH SCH (08:00)
[2022-11-06] MEDS: ADVAIR HFA 115/21MCG INHALER INH SCH (08:03)
[2022-11-06] MEDS: DOCUSATE SODIUM 100MG CAPSULE PO SCH (08:12)
[2022-11-06] MEDS: ATORVASTATIN 20 MG TAB PO SCH (08:34)
[2022-11-06] MEDS: LOSARTAN 50MG TABLET PO SCH (08:34)
[2022-11-06] MEDS: FERROUS SULFATE 325MG TAB PO SCH (08:34)
[2022-11-06] MEDS: ACETAMINOPHEN 500 MG TAB PO SCH ×2 (08:34→15:52)
[2022-11-06] MEDS: PANTOPRAZOLE 40MG TAB (PROTONIX) PO SCH (08:35)
[2022-11-06] MEDS: MULTIVITAMINS/MINERALS THERAP 1 TAB PO SCH (08:35)
[2022-11-06] MEDS: ASPIRIN 81MG ENTERIC TABLET PO SCH (08:35)
[2022-11-06] MEDS: THIAMINE 100 MG TAB PO SCH (08:35)
[2022-11-06] MEDS: FOLIC ACID 1MG TAB PO SCH (08:35)
[2022-11-06] MEDS: BISOPROLOL FUM 2.5 MG PER 1/2TAB PO SCH (08:35)
[2022-11-06] MEDS ORDERED: ASPI81CH8 PO (09:50)
[2022-11-06] MEDS ORDERED: BISO5TAB14 PO (09:50)
[2022-11-06] MEDS ORDERED: INCR1INH INH (09:50)
[2022-11-06] MEDS ORDERED: ATOR80TA59 PO (09:50)
[2022-11-06] MEDS ORDERED: LOSA100T45 PO (09:50)
[2022-11-06] MEDS ORDERED: BREO1INH3 PO (09:50)
[2022-11-06] MEDS ORDERED: PANT40TA29 PO (09:50)
[2022-11-06] MEDS ORDERED: HYDR25TA PO (09:52)
[2022-11-06 11:18] VITALS: BP 117/54
[2022-11-06 11:41] VITALS: BP 117/54
[2022-11-06 14:00] VITALS: BP 133/60
== END 2022-11-06 17:20 | disposition home or self-care (01) | DRG 559 ==
LOC: M PM&R 14:50
PROVIDERS: ADMIT Physical Medicine & Rehabilitation; ATTEND Physical Medicine & Rehabilitation
DX: S72.141D Displaced intertrochanteric fracture of right femur, subsequent encounter for closed fracture with routine healing (principal); E43 Unspecified severe protein-calorie malnutrition; E87.1 Hypo-osmolality and hyponatremia; Z68.1 Body mass index [BMI] 19.9 or less, adult; R26.89 Other abnormalities of gait and mobility; D64.9 Anemia, unspecified; J44.9 Chronic obstructive pulmonary disease, unspecified; I10 Essential (primary) hypertension; I25.10 Atherosclerotic heart disease of native coronary artery without angina pectoris; E78.5 Hyperlipidemia, unspecified; Z95.5 Presence of coronary angioplasty implant and graft; F10.10 Alcohol abuse, uncomplicated; I73.9 Peripheral vascular disease, unspecified; F32.A Depression, unspecified; Z74.09 Other reduced mobility; Z74.1 Need for assistance with personal care; K59.00 Constipation, unspecified; Z98.41 Cataract extraction status, right eye; Z98.42 Cataract extraction status, left eye; Z79.82 Long term (current) use of aspirin; Z79.899 Other long term (current) drug therapy; Z87.891 Personal history of nicotine dependence

== ENCOUNTER → 2022-11-20 | Outpatient (CLI) | payer MEDICARE, MEDICAID ==
[~2022-11-20] MED LIST changes: +PANT40TA29 PO
== END ==
LOC: M SOG 13:37
PROVIDERS: ATTEND Orthopaedic Surgery Hand Surgery
DX: Z48.89 Encounter for other specified surgical aftercare (principal); M16.0 Bilateral primary osteoarthritis of hip; S72.001D Fracture of unspecified part of neck of right femur, subsequent encounter for closed fracture with routine healing

== ENCOUNTER → 2022-12-30 | Outpatient (CLI) | payer MEDICARE, MEDICAID | LOC: M SOG 14:06 | PROVIDERS: ATTEND Orthopaedic Surgery Hand Surgery | DX: S72.141D Displaced intertrochanteric fracture of right femur, subsequent encounter for closed fracture with routine healing (principal) ==

== ENCOUNTER → 2023-02-02 | Outpatient (REF) | payer MEDICARE, MEDICAID ==
[2023-02-02 18:17] LABS: BASO % 0.3 % (0.0-1.0); EOS # 0.2 10^3/uL (0.0-0.5); EOS % 1.8 % (0.0-3.0); HEMOGLOBIN 10.8 g/dl (13.5-17.5); LYMPH # 1.7 10^3/uL (1.5-5.0); LYMPH % 14.9 % (24.0-44.0); MEAN CORPUSCULAR HEMOGLOBIN 30.7 pg (27.0-33.0); MEAN CORPUSCULAR HGB CONC 31.8 g/dl (32.0-36.5); MEAN CORPUSCULAR VOLUME 96.6 fl (80.0-96.0); MONO % 14.3 % (2.0-8.0); NEUTROPHILS # 7.7 10^3/uL (1.5-8.5); NEUTROPHILS % 67.9 % (36.0-66.0); PLATELET COUNT, AUTOMATED 426 10^3/uL (150-450); RED BLOOD COUNT 3.52 10^6/uL (4.30-6.10); WHITE BLOOD COUNT 11.4 10^3/uL (4.0-10.0)
[2023-02-02 19:34] LABS: MONO # 1.6 10^3/uL (0.0-0.8)
[2023-02-02 20:11] LABS: IRON (FE) 25 UG/DL (65-175); PERCENT SATURATION 10.3 % (19.7-50.0); TOTAL IRON BINDING CAPACITY 242 UG/DL (250-425)
[2023-02-02 20:18] LABS: ALBUMIN 2.8 G/DL (3.2-5.2); ALKALINE PHOSPHATASE 119 U/L (46-116); ALT/SGPT 51 U/L (7.0-40); AST/SGOT 66 U/L (<34); BILIRUBIN,TOTAL 1.1 MG/DL (0.3-1.2); BLOOD UREA NITROGEN 14 MG/DL (9-23); CALCIUM LEVEL 9.3 MG/DL (8.3-10.6); CARBON DIOXIDE LEVEL 29 MMOL/L (20-31); CHLORIDE LEVEL 100 MMOL/L (98-107); CREATININE FOR GFR 0.87 MG/DL (0.70-1.30); FERRITIN 421.1 NG/ML (10.5-307.3); GLOMERULAR FILTRATION RATE > 60.0 (>35); GLUCOSE, FASTING 112 MG/DL (74-106); POTASSIUM SERUM 4.4 MMOL/L (3.5-5.1); SODIUM LEVEL 135 MMOL/L (136-145); TOTAL PROTEIN 6.5 G/DL (5.7-8.2)
== END ==
LOC: M LABDRWCV 16:41
PROVIDERS: ATTEND Internal Medicine
DX: E78.00 Pure hypercholesterolemia, unspecified (principal); I10 Essential (primary) hypertension; D50.9 Iron deficiency anemia, unspecified

== ENCOUNTER → 2023-02-11 | Outpatient (CLI) | payer MEDICARE, MEDICAID | LOC: M PLAIMG 10:37 | PROVIDERS: ATTEND Internal Medicine | DX: R91.8 Other nonspecific abnormal finding of lung field (principal); R61 Generalized hyperhidrosis; R74.8 Abnormal levels of other serum enzymes; I70.0 Atherosclerosis of aorta ==

== ENCOUNTER 2023-03-24 13:38 | Emergency (ER) | payer MEDICARE, MEDICAID ==
[~2023-03-24] VITALS: Ht 180.3 cm; Wt 44.9 kg
[~2023-03-24 13:38] MED LIST changes: -LOSA100T45 PO; +LOSA100T46 PO; +POTA-298 PO; -POTA1TAB14 PO
[2023-03-24] MEDS ORDERED: LACTULOSE 20GM/30ML SYRUP UDC PO ONE ×2 (14:35→16:20)
[2023-03-24] MEDS ORDERED: ACETAMINOPHEN 325 MG TAB PO ONE (15:20)
[2023-03-24] MEDS ORDERED: FLEET ENEMA PR ONE (16:20)
[2023-03-24 19:58] VITALS: BP 154/72
[2023-03-24] MEDS ORDERED: FLEET OIL RETENTION ENEMA PR PRN (20:30)
[2023-03-24] MEDS ORDERED: COLA100C5 PO ×2 (21:19→21:51)
== END 2023-03-24 22:12 | disposition home or self-care (01) ==
LOC: M ED 13:38
DX: K56.41 Fecal impaction (principal); I51.9 Heart disease, unspecified; I10 Essential (primary) hypertension; J44.9 Chronic obstructive pulmonary disease, unspecified; F17.200 Nicotine dependence, unspecified, uncomplicated; Z79.899 Other long term (current) drug therapy

== ENCOUNTER → 2023-05-13 | Outpatient (REF) | payer MEDICARE, MEDICAID ==
[~2023-05-13] MED LIST changes: +COLA100C5 PO
[2023-05-13 17:37] LABS: PERCENT SATURATION 19.5 % (19.7-50.0)
== END ==
LOC: M LAB REF 16:19
PROVIDERS: ATTEND Internal Medicine
DX: D50.9 Iron deficiency anemia, unspecified (principal)

== ENCOUNTER → 2023-10-21 | Outpatient (CLI) | payer MEDICARE, MEDICAID | LOC: M PLAIMG 12:58 | PROVIDERS: ATTEND Internal Medicine | DX: R91.8 Other nonspecific abnormal finding of lung field (principal) ==

== ENCOUNTER → 2023-12-01 | Outpatient (REF) | payer MEDICARE, MEDICAID ==
[2023-12-01 17:26] LABS: PERCENT SATURATION 16.7 % (19.7-50.0)
== END ==
LOC: M LAB REF 16:28
PROVIDERS: ATTEND Internal Medicine
DX: D50.9 Iron deficiency anemia, unspecified (principal)

== ENCOUNTER → 2024-07-26 | Outpatient (REF) | payer MEDICARE, MEDICAID ==
[~2024-07-26] MED LIST changes: -EPLE25TA PO; +EPLE25TA2 PO; -HYDR25TA PO; +HYDR25TA88 PO
== END ==
LOC: M LAB REF 16:56
PROVIDERS: ATTEND Internal Medicine
DX: J44.9 Chronic obstructive pulmonary disease, unspecified (principal)

== ENCOUNTER → 2024-08-02 | Outpatient (CLI) | payer MEDICARE, MEDICAID ==
[~2024-08-02] MED LIST changes: +ISOVUE-370 76% 100ML VIAL As Ordered ONE
== END ==
LOC: M RAD 13:04
PROVIDERS: ATTEND Physician Assistant
DX: R91.8 Other nonspecific abnormal finding of lung field (principal); J47.9 Bronchiectasis, uncomplicated; K76.89 Other specified diseases of liver; J44.9 Chronic obstructive pulmonary disease, unspecified
CPT/HCPCS: 71260; Q9967

== ENCOUNTER → 2024-09-23 | Outpatient (CLI) | payer MEDICARE, MEDICAID ==
[~2024-09-23] MED LIST changes: +BARIUM SULFATE 700 MG TABLET (E-Z-DISK) As Ordered ONE; +E-Z-PAQUE 96% w/w SUSP 176GM BTL As Ordered ONE; +EPLE25TA15 PO; -EPLE25TA2 PO; -ISOVUE-370 76% 100ML VIAL As Ordered ONE; +VARIBAR NECTAR 40% w/v 240ML SUSP BTL As Ordered ONE; +VARIBAR PUDDING 40% w/v 230ML TUBE As Ordered ONE
== END ==
LOC: M RAD 10:53
PROVIDERS: ATTEND Otolaryngology
DX: R13.10 Dysphagia, unspecified (principal)

== ENCOUNTER → 2024-12-07 | Outpatient (REF) | payer MEDICARE, MEDICAID ==
[~2024-12-07] MED LIST changes: -BARIUM SULFATE 700 MG TABLET (E-Z-DISK) As Ordered ONE; -E-Z-PAQUE 96% w/w SUSP 176GM BTL As Ordered ONE; -VARIBAR NECTAR 40% w/v 240ML SUSP BTL As Ordered ONE; -VARIBAR PUDDING 40% w/v 230ML TUBE As Ordered ONE
== END ==
LOC: M LAB REF 13:07
PROVIDERS: ATTEND Internal Medicine
DX: I50.32 Chronic diastolic (congestive) heart failure (principal)

== ENCOUNTER → 2024-12-08 | Outpatient (CLI) | payer MEDICARE, MEDICAID | LOC: M RAD 11:04 | PROVIDERS: ATTEND Internal Medicine Cardiovascular Disease | DX: I50.32 Chronic diastolic (congestive) heart failure (principal); I34.0 Nonrheumatic mitral (valve) insufficiency; I27.81 Cor pulmonale (chronic); I65.29 Occlusion and stenosis of unspecified carotid artery ==

== ENCOUNTER → 2025-01-04 | Outpatient (CLI) | payer MEDICARE, MEDICAID | LOC: M CARPUL 10:17 | PROVIDERS: ATTEND Internal Medicine Cardiovascular Disease | DX: I50.32 Chronic diastolic (congestive) heart failure (principal); I34.0 Nonrheumatic mitral (valve) insufficiency; I27.81 Cor pulmonale (chronic) ==

== ENCOUNTER 2025-02-09 11:02 | Day surgery (SDC) | payer MEDICARE, MEDICAID ==
[~2025-02-09] VITALS: Ht 170.2 cm; Wt 42.0 kg
[~2025-02-09 11:02] MED LIST changes: +ALBU8.5H INH; +MIRT-10 PO; +OMEP-173 PO; +OSTE5TAB PO; +TREL1AER INH
[2025-02-09] MEDS ORDERED: fentaNYL 100 MCG/2 ML INJECTION As Ordered ONE (13:25)
[2025-02-09] MEDS ORDERED: propofoL 200 MG/20 ML VIAL As Ordered ONE (13:33)
[2025-02-09 13:34] VITALS: BP 158/70; TEMP 98.5; O2SAT 94
== END 2025-02-09 14:20 | disposition home or self-care (01) ==
LOC: M OPP 11:02
PROVIDERS: ATTEND Surgery
DX: R19.4 Change in bowel habit (principal); Z53.09 Procedure and treatment not carried out because of other contraindication
CPT/HCPCS: 45378; J3010